=== PATIENT | female | born 1980 | race Caucasian/White ===

== ENCOUNTER 2020-01-09 19:41 | Emergency (ER) | payer OTHER, SELFPAY ==
[2020-01-09 19:51] VITALS: BP 124/79; PULSE 77; RESP 16; TEMP 36.4; O2SAT 100
--- NOTE | 2020-01-09 21:15 | ED.GENADULT ---
HPI - General Adult General Chief complaint: Unspecified Stated complaint: chest and throat numbness Time Seen by Provider: 01/09/20 21:14 Source: patient Mode of arrival: ambulatory Limitations: no limitations History of Present Illness HPI narrative: The pt is a 39 y/o female who presents to the ED c/o intermittent numbness onset today. Pt states that she was eating when she began to notice a tingling sensation in her throat. She then began to experience numbness in her mouth, tongue, and lips. 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 She notes nothing has improved or worsened her condition. 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 Pt reports SOB, but denies CP and back pain. Pt has no pertinent PMHx. Pt states that she does not smoke cigarettes or use alcohol. complaint: Numbness Location: mouth, upper extremity (BUE) and lower extremity (BLE) Pain Consistency: intermittent Relieving factors: none Exacerbating factors: none Associated symptoms: shortness of breath and other (Tingling in her throat, feeling stressed) Related Data Allergies Allergy/AdvReac Type Severity Reaction Status Date / Time No Known Drug Allergies Allergy Mild Unknown Verified 01/09/20 19:54 Review of Systems Review of Systems: All systems reviewed & are unremarkable except as noted in HPI and below Cardiovascular: Cardiovascular: Denies chest pain Respiratory: Respiratory: Reports dyspnea Musculoskeletal: Musculoskeletal: Denies back pain Neurologic: Reports numbness (Intermittent; Mouth, tongue, lips, BUE, BLE) and Reports tingling (Throat) Psychiatric: Psychiatric: Reports other (Feeling stressed) PMFSH Past Medical History Medical History (Updated 01/09/20 @ 21:47 by Leo Tirado MD) No pertinent past medical history Surgical History Surgical History (Updated 01/09/20 @ 21:25 by Gian Martinez) H/O left knee surgery Social History Social History (Updated 01/09/20 @ 21:25 by Gian Martinez) Smoking status: Never smoker Alcohol intake: never Gender identity (if verbalized by the patient): Female Exam Narrative: Exam Narrative: General appearance: Well-developed, well-nourished, no family member or friend at the bedside Skin: Normal color Head: Normocephalic, nontraumatic Eyes: Clear conjunctiva ENT: Oropharynx normal, ears normal, nose normal Neck: Supple, nontender Chest and respiratory: Airway patent, no respiratory distress, no accessory muscle use Heart: Regular rate/rhythm Abdomen: Soft, nontender, no organomegaly, quiet bowel sounds Vascular: Normal peripheral pulses, normal capillary refill. Musculoskeletal: Normal range of motion, nontender back Neurologic: Alert and oriented ?3, DAY CARE HOME PROVIDER is normal as tested, no gross motor deficit Course Course Emergency Course: Improved Vital Signs Vital signs: Vital Signs Temperature 36.4 C L 01/09/20 19:51 Pulse Rate 77 01/09/20 19:51 Respiratory Rate 16 01/09/20 19:51 Blood Pressure 124/79 01/09/20 19:51 Pulse Oximetry 100 01/09/20 19:51 Temperature 36.4 C L 01/09/20 19:51 Pulse Rate 77 01/09/20 19:51 Respiratory Rate 16 01/09/20 19:51 Blood Pressure 124/79 01/09/20 19:51 Pulse Oximetry 100 01/09/20 19:51 Medical Decision Making [facility] Narrative Medical decision making narrative: Patient is 39 years old female with unremarkable past medical history, single mother, a lot of stress, presents with paresthesia involving the tongue, lips, hands and feet, intermittent. My differential diagnosis anxiety
[2020-01-09 21:22] VITALS: BP 134/76; PULSE 71; RESP 16; O2SAT 98
[2020-01-09] MEDS: LORAZEPAM 0.5 MG TABLET 1 MG PO (21:57)
[2020-01-09 22:10] VITALS: BP 125/78; PULSE 84; RESP 18; O2SAT 100
== END 2020-01-09 22:13 | disposition home or self-care (01) ==
PROVIDERS: Emergency Provider Emergency Medicine
DX: F41.9 Anxiety disorder, unspecified (principal)
CPT/HCPCS: 99283; A9270

== ENCOUNTER 2020-06-19 07:55 | Outpatient (CLI) | payer OTHER, SELFPAY ==
--- NOTE | ~2020-06-19 | MM_ITS ---
EXAMINATION: MM screening hipolito BI w krissy HISTORY: Screening mammogram TECHNIQUE: Craniocaudal and mediolateral oblique 3-D tomosynthesis images were obtained and synthetic 2-D images were generated. CAD analysis was submitted and interpreted. COMPARISON: 04/08/2019 bilateral digital screening mammogram BREAST PARENCHYMAL COMPOSITION: There are scattered areas of fibroglandular density. FINDINGS: There is no evidence of suspicious mass, calcification, or architectural distortion to sugg est malignancy in either breast. There has been no suspicious interval change. IMPRESSION: 1. No mammographic evidence of malignancy. 2. Recommend routine screening mammography in one year. BI-RADS Category 1: Negative Reviewed, dictated and finalized at location A.
== END 2020-06-19 07:56 | disposition home or self-care (01) ==
LOC: ANHIMG 07:56
PROVIDERS: PCP Internal Medicine Infectious Disease; Visit Provider Internal Medicine Infectious Disease
DX: Z12.31 Encounter for screening mammogram for malignant neoplasm of breast (principal)
CPT/HCPCS: 77063; 77067

== ENCOUNTER 2021-05-11 00:03 | Emergency (ER) | payer OTHER, SELFPAY ==
[2021-05-11] VITALS (7 sets, daily range): BP systolic 124–145; BP diastolic 52–85; PULSE 68–77; RESP 14–18; TEMP 36; O2SAT 97–99
--- NOTE | ~2021-05-11 | CT_ITS ---
EXAMINATION: CT brain wo con INDICATION: Near syncope, dizziness COMPARISON: 07/21/2016 TECHNIQUE: Standard unenhanced head CT. The dose-length product (DLP) was 681.00 mGy-cm. The mA was a djusted according to patient size. Iterative reconstruction technique was employed. FINDINGS: There is no intracranial hemorrhage, acute infarction, or abnormal mass lesion. The ventric les are normal. There is no abnormal mass effect or midline shift. The martinez-white matter differentiat ion is normal. The basal cisterns are patent. The orbits are normal. The paranasal sinuses, mastoids and calvarium are normal. IMPRESSION: 1. No acute intracranial abnormality. Reviewed, dictated and finalized at location A.
--- NOTE | 2021-05-11 00:50 | ED.GENADULT ---
HPI - General Adult General Chief complaint: Unspecified Stated complaint: near syncopal Time Seen by Provider: 05/11/21 00:49 Source: patient Mode of arrival: ambulatory Limitations: no limitations History of Present Illness HPI narrative: Patient is a 41-year-old female complaining of dizziness, described as room spinning, worse with head movement and standing and walking, relieved with laying still, started proxy 1 week ago. Patient states that she was seen 3 days ago at [place] for the same complaint. Patient denies any speech or visual disturbance, focal weakness or numbness, unsteady gait, headache, chest pain, shortness of breath, nausea, vomiting, fever or chills. Related Data Allergies Allergy/AdvReac Type Severity Reaction Status Date / Time No Known Drug Allergies Allergy Mild Unknown Verified 05/11/21 00:13 Review of Systems Review of Systems: All systems reviewed & are unremarkable except as noted in HPI and below Constitutional: Constitutional: Denies body ache(s), Denies chills, Denies excessive sweating, Denies fatigue, Denies fever(s), Denies headache(s), Denies lethargy, Denies malaise, Denies weakness and Denies weight loss Eyes: Eyes: Denies blurry vision, Denies change in vision and Denies loss of vision ENT: Denies ear discharge, Denies headache(s), Denies lip swelling, Denies epistaxis, Denies nasal congestion, Denies neck pain, Denies throat swelling and Denies tongue swelling Cardiovascular: Cardiovascular: Denies chest pain, Denies chest pain at rest, Denies chest pain with activity, Denies diaphoresis, Denies rapid heart rate, Denies edema, Denies irregular heart rhythm, Denies lightheadedness, Denies palpitations, Denies dyspnea and Denies dyspnea on exertion Respiratory: Respiratory: Denies chest congestion, Denies cough, Denies hemoptysis, Denies dyspnea and Denies dyspnea on exertion Gastrointestinal: Gastrointestinal: Denies abdominal pain, Denies melena, Denies hematochezia, Denies diarrhea, Denies nausea, Denies vomiting and Denies hematemesis Musculoskeletal: Musculoskeletal: Denies abnormal gait, Denies deformity, Denies joint swelling, Denies limited range of motion, Denies neck pain and Denies numbness Neurologic: Denies Abnormal speech present, Denies abnormal gait, Denies confusion, Denies headache(s), Denies focal weakness, Denies loss of vision, Denies numbness, Denies Other visual disturbances, Denies Sensory deficit (Neuro) and Denies weakness Psychiatric: Psychiatric: Denies confusion, Denies depression, Denies auditory hallucinations, Denies homicidal ideation and Denies suicidal ideation Endocrine: Endocrine: Denies cold intolerance, Denies excessive sweating, Denies fatigue, Denies heat intolerance and Denies palpitations Hematologic/Lymphatic: Hematologic/Lymphatic: Denies easy bleeding and Denies easy bruising Allergic/Immunologic: Allergic/Immunologic: Denies lip swelling, Denies throat swelling and Denies tongue swelling PMFSH Past Medical History Medical History (Updated 05/11/21 @ 02:46 by Leighton Liu MD) No pertinent past medical history Surgical History Surgical History (Updated 01/09/20 @ 21:25 by Gian Martinez) H/O left knee surgery Social History Social History (Updated 01/09/20 @ 21:25 by Gian Martinez) Smoking status: Never smoker Alcohol intake: never Gender identity (if verbalized by the patient): Female Comments Past medical history: A. fib, resolved not on any medications. Family history: Negative for aneurysm, CVA or HI Social history: Non-smoker no EtOH or drug use Exam Const: General: cooperative, healthy appearing, comfortable, no acute distress, well developed, alert and awake; No confusion Orientation/consciousness: oriented to person, oriented to place, oriented to time, patient oriented x3 and No confusion Limitations: no limitations HENMT: Head: normal to inspection, normocephalic and atraumatic Ears: hearing grossl
--- NOTE | 2021-05-11 00:51 | ECG_ITS ---
Measurements Intervals [place] Rate: 69 P: 39 ND: 157 QRS: 29 QRSD: 106 T: 23 QT: 392 QTc: 422 Interpretive Statements SINUS RHYTHM ST ELEVATION IN DIFFUSE LEADS- PROBABLY EARLY REPOLARIZATION ABNORMALITY BASELINE ARTIFACT- I, II, AVR, V1, V3-V6 BORDERLINE ECG Electronically Signed On 05-11-2021 6:28:23 CDT by Shawn Morrison D.O.
[2021-05-11 01:51] LABS: Basophils Percent Auto 0.4 % (0.2-1.2); Eosinophils Absolute Auto 0.1 K/mm3 (0-0.3); Hematocrit 34.3 % (37.0-47.0); Hemoglobin 10.5 g/dL (12.0-15.0); Immature Granulocyte Absolute 0.03 K/mm3 (0.00-0.031); Immature Granulocyte Percent A 0.4 % (0-0.5); Lymphocytes Absolute Auto 1.93 K/mm3 (0.9-3.2); Lymphocytes Percent Auto 27.5 % (18.3-44.2); Mean Corpuscular HGB Conc 30.6 g/dl (32-36); Mean Corpuscular Hemoglobin 26.3 pg (26-34); Mean Corpuscular Volume 85.8 fl (80-100); Mean Platelet Volume 12.2 fl (7.4-10.4); Monocytes Absolute Auto 0.5 K/mm3 (0.1-0.6); Monocytes Percent Auto 7.5 % (2.6-8.5); Neutrophils Absolute Auto 4.4 K/mm3 (1.3-6.7); Neutrophils Percent Auto 62.2 % (45.5-73.1); Platelet Count Result 174 k/mm3 (150-375); Red Cell Distribution Width 14.9 % (11.5-14.5)
[2021-05-11 02:00] LABS: Anion Gap 9 mmol/L (8-16); Blood Urea Nitrogen 22 mg/dL (7-17); Calcium 9.2 mg/dL (8.4-10.2); Carbon Dioxide 24 mmol/L (22-30); Chloride 106 mmol/L (98-107); Estimated CRCL calculation 136 ml/min; Estimated Glomerular Filt Rate > 60; Glucose 109 mg/dL (65-105); Potassium 4.1 mmol/L (3.4-5.0); Sodium 139 mmol/L (137-145)
[2021-05-11 02:12] LABS: Troponin I < 0.012 ng/mL (0.000-0.034)
== END 2021-05-11 03:15 | disposition home or self-care (01) ==
PROVIDERS: Emergency Provider Emergency Medicine; PCP Internal Medicine Infectious Disease
DX: R42 Dizziness and giddiness (principal); R94.31 Abnormal electrocardiogram [ECG] [EKG]
CPT/HCPCS: 36415; 70450; 80048; 84484; 85025; 93005; 99284

== ENCOUNTER 2021-06-22 17:26 | Emergency (ER) | payer OTHER, SELFPAY ==
[2021-06-22 17:36] VITALS: BP 109/79; PULSE 74; RESP 16; TEMP 37.2; O2SAT 99
--- NOTE | 2021-06-22 17:40 | ED.EXTPRO ---
HPI - Extremity Problem General Chief complaint: Extremity Problem,Nontraumatic Stated complaint: Right Knee Pain History of Present Illness HPI Narrative: This is a 41-year-old female comes in complaining of right knee pain patient states that she is always has some pain she knows she has arthritis but last night and the last couple nights have been excruciating her leg has continued to swell at the top of her knee. Patient states she has been taking Tylenol arthritis, and some ibuprofen frequently Related Data Home Medications Medication Instructions Recorded Confirmed metoprolol succinate PO 06/22/21 06/22/21 Allergies Allergy/AdvReac Type Severity Reaction Status Date / Time No Known Drug Allergies Allergy Mild Unknown Verified 06/22/21 18:08 Review of Systems Review of Systems: CONSTITUTIONAL: Denies fever, chills, or sweats. EYES: Denies visual changes, redness, or discharge. ENT: Denies rhinorrhea, congestion, sore throat, or otalgia. CARDIOVASCULAR:Denies chest pain, palpitations, or edema. RESPIRATORY: Denies cough or dyspnea. GASTROINTESTINAL: Denies abdominal pain, nausea, vomiting, or diarrhea. GENITOURINARY: Denies dysuria or hematuria. SKIN:[Denies rash or itching. MUSCULOSKELETAL:Denies back pain, joint pain, or myalgia. NEUROLOGIC: Denies headache, numbness, or weakness. PSYCHIATRIC:Denies anxiety or depression PMFSH Past Medical History Medical History (Updated 06/23/21 @ 09:53 by Argenis Johnson NP) No pertinent past medical history Surgical History Surgical History (Updated 01/09/20 @ 21:25 by Gian Martinez) H/O left knee surgery Social History Social History (Updated 01/09/20 @ 21:25 by Gian Martinez) Smoking status: Never smoker Alcohol intake: never Gender identity (if verbalized by the patient): Female Comments At time as signature, I have reviewed and agree with nursing past medical, social, surgical and family history. Please see nursing chart for further information. There is no relevant family history pertinent to the presenting complaint. Exam Narrative: GENERAL:Well-appearing, well-nourished, and in no acute distress. HEAD:Normocephalic, atraumatic. EYES: PERRLA and EOMI. ENT: Nares clear, no rhinorrhea or epistaxis. Mucous membranes moist. NECK: Supple. CHEST: Clear to auscultation. No respiratory distress. HEART: Regular rate and rhythm. No murmur heard. Normal peripheral pulses. ABDOMEN: Soft, nontender, nondistended, normal active bowel sounds. EXTREMITIES: decreased right knee range of motion. Moderate amount edema above the knee fluid like felt which is painful no warmth noted painful with movement not palpitation . SKIN: Warm, dry, no rash. NEURO: No focal deficits. Alert and oriented x3. Course TRAFFIC DIRECTOR/PA Physician Supervision Discussed knee effusion and possible need for aspiration although it is not something we will do at this center and she may need to see a orthopedic doctor discussed the importance of weight loss will help as well. Vital Signs Vital signs: Vital Signs Temperature 98.9 F 06/22/21 17:36 Pulse Rate 74 06/22/21 17:36 Respiratory Rate 16 06/22/21 17:36 Blood Pressure 109/79 06/22/21 17:36 Pulse Oximetry 99 06/22/21 17:36 Temperature 98.9 F 06/22/21 17:36 Pulse Rate 74 06/22/21 17:36 Respiratory Rate 16 06/22/21 17:36 Blood Pressure 109/79 06/22/21 17:36 Pulse Oximetry 99 06/22/21 17:36 Discharge Plan Discharge Clinical Impression: Effusion of knee joint right, Acute knee pain Patient Disposition: Home, Self-Care Condition: Stable Instructions: Antibiotic Form, Swollen Knee Joint (ED) Additional Instructions: avoid weight bearing until the pain subsides. Ice to the area 20-30 minutes 4-6 times a day Elevate above heart Elastic wrap or orthopedic splint as directed for comfort for the next 5-7 days Tylenol for lesser pain Ibuprofen regularly for the next 2-3 days
== END 2021-06-22 18:22 | disposition home or self-care (01) ==
PROVIDERS: Emergency Provider Nurse Practitioner Family; PCP Internal Medicine Infectious Disease
DX: M25.461 Effusion, right knee (principal)
CPT/HCPCS: 99213; G0463

== ENCOUNTER 2021-11-23 07:28 | Emergency (ER) | payer OTHER, SELFPAY ==
[2021-11-23 08:05] VITALS: BP 126/73; PULSE 97; RESP 19; TEMP 36.9; O2SAT 100
== END 2021-11-23 09:50 | disposition left against medical advice (07) ==
LOC: ANHED 07:51
PROVIDERS: PCP Internal Medicine Infectious Disease
DX: Z53.21 Procedure and treatment not carried out due to patient leaving prior to being seen by health care provider (principal)
CPT/HCPCS: 99199

== ENCOUNTER 2022-02-22 23:01 | Emergency (ER) | payer OTHER, SELFPAY ==
--- NOTE | ~2022-02-22 | XR_ITS ---
EXAMINATION: XR chest 2V DATE: 02/23/2022 00:27 INDICATION: Cough. TECHNIQUE: Frontal and lateral views of the chest were obtained. COMPARISON: Chest single view 02/04/2013 FINDINGS: The chest demonstrates clear lungs without pneumonia, pleural effusion, or pneumothorax. Th e heart size is normal. IMPRESSION: 1. No acute cardiopulmonary disease. Reviewed, dictated and finalized at location A.
[2022-02-22 23:05] VITALS: BP 122/87; PULSE 76; RESP 14; TEMP 36.6; O2SAT 100
--- NOTE | 2022-02-23 00:16 | ED.URI ---
HPI - URI/Sore Throat General Chief Complaint: Upper Respiratory Infection Stated Complaint: URI, SOB Time Seen by Provider: 02/22/22 23:31 History of Present Illness HPI Narrative: 42-year-old female presents emergency room complaints of cough, shortness of breath, sinus congestion for 3 weeks. Patient states her daughter has been experiencing similar symptoms. Patient denies fever, sneezing, headache. Patient denies chest pain, back pain Related Data Home Medications Medication Instructions Recorded Confirmed metoprolol succinate PO 06/22/21 06/22/21 Allergies Allergy/AdvReac Type Severity Reaction Status Date / Time No Known Drug Allergies Allergy Mild Unknown Verified 02/22/22 23:09 Review of Systems Review of Systems: CONSTITUTIONAL: Denies fever, chills, or sweats. EYES: Denies visual changes, redness, or discharge. ENT: Denies rhinorrhea, congestion, sore throat, or otalgia. CARDIOVASCULAR: Denies chest pain, palpitations, or edema. RESPIRATORY: Reports cough and dyspnea GASTROINTESTINAL: Denies abdominal pain, nausea, vomiting, or diarrhea. GENITOURINARY: Denies dysuria or hematuria. SKIN: Denies rash or itching. MUSCULOSKELETAL: Denies back pain, joint pain, or myalgia. NEUROLOGIC: Denies headache, numbness, dizziness, or weakness. PSYCHIATRIC: Denies anxiety or depression. PMFSH Past Medical History Medical History No pertinent past medical history Surgical History Surgical History H/O left knee surgery Social History Social History Smoking status: Never smoker Alcohol intake: never Gender identity (if verbalized by the patient): Female Exam Narrative: GENERAL: Well-appearing, well-nourished, morbidly obese and in no acute distress. HEAD: Normocephalic, atraumatic. EYES: PERRLA and EOMI. CHEST: Clear to auscultation. No respiratory distress. No wheezes rales or rhonchi HEART: Regular rate and rhythm. No murmur heard. Normal peripheral pulses. EXTREMITIES: Normal range of motion. No edema. SKIN: Warm, dry, no rash. NEURO: No focal deficits. Alert and oriented x3. PSYCH: Normal mood and affect. Course Vital Signs Vital signs: Vital Signs Temperature 36.6 C 02/22/22 23:05 Pulse Rate 76 02/22/22 23:05 Respiratory Rate 14 02/22/22 23:05 Blood Pressure 122/87 02/22/22 23:05 Pulse Oximetry 100 02/22/22 23:05 Temperature 36.6 C 02/22/22 23:05 Pulse Rate 79 02/23/22 00:33 Respiratory Rate 18 02/23/22 00:33 Blood Pressure 145/84 H 02/23/22 00:33 Pulse Oximetry 99 02/23/22 00:33 MDM - URI/Sore Throat MDM Narrative Medical decision making narrative: 42-year-old female presents emergency room with complaints of sinus congestion, postnasal drip, cough, shortness of breath for 3 weeks. Chest x-ray showed no acute cardiopulmonary process. Patient was given a DuoNeb, and symptoms. Improved. Differential Diagnosis Differential diagnosis: Likely upper respiratory infection and viral infection Imaging Data My impression: No acute cardiopulmonary process Discharge Plan Discharge Clinical Impression: URI (upper respiratory infection) Patient Disposition: Home, Self-Care Condition: Stable Instructions: Antibiotic Form Additional Instructions: Take medications as prescribed. Recommend taking 30 mg of pseudoephedrine 2-3 times daily for sinus congestion. Follow-up with primary care physician as needed. Prescriptions: New albuterol sulfate 90 mcg/actuation HFA aerosol inhaler 1 inh inhalation QID Qty: 8.5 RF: 0 prednisone 20 mg tablet 30 mg PO DAILY Qty: 15 RF: 0 No Action metoprolol succinate 25 mg tablet extended release 24 hr PO RF: 0 methylprednisolone [Medrol (Madhav)] 4 mg tablets,dose pack See Rx Instructions .ROUTE .COMPLEX Qty: 21 RF: 0
[2022-02-23 00:33] VITALS: BP 145/84; PULSE 79; RESP 18; O2SAT 99
[2022-02-23 00:46] VITALS: PULSE 78; RESP 12
[2022-02-23] MEDS: IPRATROPIUM BR 0.02% INH SOLN 0.5 MG/2.5 ML VIAL INHALATION (00:46)
[2022-02-23] MEDS: ALBUTEROL SULFATE NEB 2.5 MG/0.5 ML INH 5 MG INHALATION (00:46)
[2022-02-23 00:54] VITALS: PULSE 75; RESP 11
== END 2022-02-23 01:16 | disposition home or self-care (01) ==
PROVIDERS: Emergency Provider Nurse Practitioner Family; PCP Internal Medicine Infectious Disease
DX: J06.9 Acute upper respiratory infection, unspecified (principal)
CPT/HCPCS: 71046; 94640; 99283

== ENCOUNTER 2022-02-26 12:53 | Emergency (ER) | payer OTHER, SELFPAY ==
--- NOTE | ~2022-02-26 | XR_ITS ---
EXAMINATION: XR foot LT min 3V EXAM DATE: 02/26/2022 13:13 INDICATION: Left 2nd toe injury 2 weeks ago. TECHNIQUE: Left foot dorsoplantar, lateral and oblique projections obtained and reviewed. There is n o prior study for comparison. FINDINGS: Left metatarsal bones unremarkable. There is large inferior calcaneal spur. Some faint v ascular calcifications are demonstrated. There are no bony erosions identified. There are no acute fr actures identified. There may be some soft tissue swelling between the 2nd and 3rd toes, clinical cor relation. IMPRESSION: Possible soft tissue swelling. No fracture. Reviewed, dictated and finalized at location A.
[2022-02-26 13:01] VITALS: BP 109/75; PULSE 69; RESP 16; TEMP 36.7; O2SAT 99
--- NOTE | 2022-02-26 13:02 | ED.LOWEXIN ---
HPI - Extremity Injury (Lower) General Chief Complaint: Extremity Injury, Lower Stated Complaint: left 1st/2nd digit toe pain Time Seen by Provider: 02/26/22 13:17 Source: patient and RN notes reviewed Mode of arrival: ambulatory Limitations: no limitations History of Present Illness HPI Narrative: 42-year-old female presents concern for pain due the first and second digits of the left foot. Reports she injured about 2 weeks ago. She reports the second digit is crooked. She reports pain when she walks. She denies decree strength, sensation. She reports the digit is swollen but not bruised. complaint: foot injury Related Data Allergies Allergy/AdvReac Type Severity Reaction Status Date / Time No Known Drug Allergies Allergy Mild Unknown Verified 02/26/22 13:16 Review of Systems Review of Systems: CONSTITUTIONAL: Denies malaise, chills, sweats, or fever. SKIN: Denies rash or itching, open skin, laceration, abrasion, redness, warmth MUSCULOSKELETAL: Reports pain in the first and second digits of the left foot, swelling in the second digit of the left foot NEUROLOGIC: Denies numbness, weakness All systems reviewed & are unremarkable except as noted in HPI and below PMFSH Past Medical History Medical History No pertinent past medical history Surgical History Surgical History H/O left knee surgery Social History Social History Smoking status: Never smoker Alcohol intake: never Gender identity (if verbalized by the patient): Female Comments At time of signature, agree with nursing past medical, surgical, social and family history. There is no relevant family history pertinent to the presenting complaint Exam Narrative: GENERAL: Well-appearing, well-nourished, and in no acute distress. HEAD: Normocephalic, atraumatic. EYES: PERRLA, conjunctivae clear NECK: Supple. CHEST: Speaks in full sentences. No respiratory distress. HEART: Regular rate and rhythm. Normal and equal peripheral pulses. EXTREMITIES: Left foot and digits have normal strength and sensation, grossly normal range of motion. Mild edema noted to the second digit with slight deformity. 5/5 strength with digit flexion and extension. Normal sensation with sensitivity to light touch and pain. Mild tenderness to the second digit of the left foot. No open wounds, no skin tenting, no devitalized tissue or atrophy, no trophic changes, alignment normal, nearby joints and structures intact. Distal pulses palpable and equal bilaterally, skin warm, dry, pink. Capillary refill less than 3 seconds. SKIN: Warm, dry, no rash. NEURO: Alert and oriented x3. PSYCH: Normal mood and affect Course Course Emergency Course: Patient is aware of diagnosis, understands and agrees to treatment plan. Anticipatory guidance given. Patient agrees to follow-up as directed and is aware of reasons to seek care at the emergency department. Portions of this record may have been created with voice recognition software Level of Care: Express Care Visit Vital Signs Vital signs: Vital Signs Temperature 98.1 F 02/26/22 13:01 Pulse Rate 69 02/26/22 13:01 Respiratory Rate 16 02/26/22 13:01 Blood Pressure 109/75 02/26/22 13:01 Pulse Oximetry 99 02/26/22 13:01 Temperature 98.1 F 02/26/22 13:07 Pulse Rate 69 02/26/22 13:07 Respiratory Rate 16 02/26/22 13:07 Blood Pressure 109/75 02/26/22 13:07 Pulse Oximetry 99 02/26/22 13:07 Reviewed. MDM - Extremity Injury (Lower) MDM Narrative Medical decision making narrative: Patients injury and pain is consistent with musculoskeletal etiology. No signs of neurological or vascular compromise on exam. Compartments and tissues are soft without signs of compartment syndrome. Pain is felt appropriate for further evaluation on an outpatient basis. Imagi
[2022-02-26 13:07] VITALS: BP 109/75; PULSE 69; RESP 16; TEMP 36.7; O2SAT 99
== END 2022-02-26 13:45 | disposition home or self-care (01) ==
PROVIDERS: Emergency Provider Nurse Practitioner
DX: S99.922A Unspecified injury of left foot, initial encounter (principal); X58.XXXA Exposure to other specified factors, initial encounter; Z86.16 Personal history of COVID-19
CPT/HCPCS: 73630; 99213; G0463

== ENCOUNTER 2022-03-30 18:30 | Emergency (ER) | payer OTHER, SELFPAY ==
--- NOTE | ~2022-03-30 | XR_ITS ---
EXAM: XR knee RT min 4V HISTORY: RT KNEE PAIN X MONDAY,POPPED,CAN'T BEAR WEIGHT COMPARISON: None available FINDINGS: Normal mineralization. No fracture or dislocation. No lytic or blastic lesion. Severe tric ompartmental osteoarthritis.. No erosion or periosteal change. Soft tissues within normal limits. IMPRESSION: No acute osseous finding in the right knee. Reviewed, dictated and finalized at location K.
[2022-03-30 18:34] VITALS: BP 127/76; PULSE 81; RESP 16; TEMP 36.4; O2SAT 100
--- NOTE | 2022-03-30 20:34 | ED.GENADULT ---
HPI - General Adult General Chief complaint: Extremity Injury, Lower Stated complaint: R KNEE PAIN Time Seen by Provider: 03/30/22 19:56 Source: RN notes reviewed History of Present Illness HPI narrative: Patient presents emergency room from home for right knee pain. Patient states pain initially began 3 days ago when she was stepping up a step and felt pain in the right posterior knee with a pop states that time it was sore and she was able to place weight on it use a pair crutches and took it easy the next day states she is feeling better by yesterday this morning she went to go put on a pair pants and again felt a pop in the right posterior leg and has had pain since that time. States pain is worse with standing on the leg and bending the leg she denies falling to the ground or directly striking the knee she states she has not take anything for the pain she denies any pain in the hip or ankle denies any numbness or tingling Related Data Allergies Allergy/AdvReac Type Severity Reaction Status Date / Time No Known Drug Allergies Allergy Mild Unknown Verified 03/30/22 19:52 Review of Systems Review of Systems: Gen.: Denies fevers or chills Musculoskeletal: See HPI Neuro: Denies numbness, tingling, weakness Skin: Denies rash Endo: Denies DM PMFSH Past Medical History Medical History No pertinent past medical history Surgical History Surgical History H/O left knee surgery Social History Social History Smoking status: Never smoker Alcohol intake: never Gender identity (if verbalized by the patient): Female Exam Narrative: APPEARANCE: No acute distress, nontoxic, resting in bed Eyes: EOMI HEENT: Normocephalic, atraumatic, RESPIRATORY: No respiratory distress MUSCULOSKELETAl: Tender palpation of the right posterior knee and region of hamstring and slightly proximal in the region of the hamstring there is no tenderness of the anterior or lateral knee, mild tenderness in the medial knee no tenderness of the hip or ankle no calf tenderness posterior tibialis pulse 2+ neurovascular intact pain increased with active flexion of the knee against resistance NEURO: Awake and alert. Following commands, speech normal, no focal deficits SKIN:: Warm, dry. Normal Color no rash or lesions Course Course Emergency Course: Discussed with patient results of workup and diagnosis. Discussed need for follow-up with primary care, proper use of medication, and reasons to return to the emergency department. Patient understands and agrees to current treatment plan Vital Signs Vital signs: Vital Signs Temperature 97.6 F 03/30/22 18:34 Pulse Rate 81 03/30/22 18:34 Respiratory Rate 16 03/30/22 18:34 Blood Pressure 127/76 03/30/22 18:34 Pulse Oximetry 100 03/30/22 18:34 Temperature 97.6 F 03/30/22 18:34 Pulse Rate 81 03/30/22 18:34 Respiratory Rate 16 03/30/22 18:34 Blood Pressure 127/76 03/30/22 18:34 Pulse Oximetry 100 03/30/22 18:34 Medical Decision Making MDM Narrative Medical decision making narrative: Patient?s injury is consistent with muscular skeletal etiology. No signs of neurologic or vascular compromise to exam. Compartments are soft without signs of compartment syndrome. Pain is consistent with exam and injury. Pain over area of hamstring and suspect hamstring strain Vital Signs Vital Signs: Vital Signs Temperature 97.6 F 03/30/22 18:34 Pulse Rate 81 03/30/22 18:34 Respiratory Rate 16 03/30/22 18:34 Blood Pressure 127/76 03/30/22 18:34 Pulse Oximetry 100 03/30/22 18:34 Temperature 97.6 F 03/30/22 18:34 Pulse Rate 81 03/30/22 18:34 Respiratory Rate 16 03/30/22 18:34 Blood Pressure 127/76 03/30/22 18:34 Pulse Oximetry 100 03/30/22 18:34 Imaging Data Radiologist's impression: IT
[2022-03-30] MEDS: IBUPROFEN 600 MG TABLET PO (21:03)
== END 2022-03-30 21:05 | disposition home or self-care (01) ==
PROVIDERS: Emergency Provider Emergency Medicine
DX: S76.312A Strain of muscle, fascia and tendon of the posterior muscle group at thigh level, left thigh, initial encounter (principal); X50.9XXA Other and unspecified overexertion or strenuous movements or postures, initial encounter
CPT/HCPCS: 73564; 99283; A9270

== ENCOUNTER 2022-08-06 19:23 | Emergency (ER) | payer OTHER, SELFPAY ==
[2022-08-06] VITALS (16 sets, daily range): BP systolic 118–152; BP diastolic 60–91; PULSE 78–101; RESP 18; TEMP 36.7; O2SAT 97–100
--- NOTE | ~2022-08-06 | CT_ITS ---
EXAMINATION: CT brain wo con DATE: 08/06/2022 20:04 INDICATION: dizziness intermittent, nausea . TECHNIQUE: Computed tomography (CT) of the head was performed without intravenous contrast. The mA wa s adjusted according to patient size. Iterative reconstruction technique was employed. The dose-lengt h product was 605.33 mGy-cm. COMPARISON: 05/11/2021 FINDINGS: No acute intracranial hemorrhage or extra-axial fluid collection. No hydrocephalus, mass, or herniation. No acute ischemic infarct. Unremarkable dural venous sinus attenuation. No acute osseous abnormality. The aerated spaces are clear. Atherosclerotic intracranial calcification. IMPRESSION: No acute intracranial process. Reviewed, dictated and finalized at location K.
--- NOTE | ~2022-08-06 | XR_ITS ---
EXAMINATION: XR chest 1V portable Exam Date/Time: 08/06/2022 19:45 CDT HISTORY: dyspnea Comparison: 02/23/2022. RESULT: Lines, tubes, and devices: None. Lungs and pleura: Clear. Cardiomediastinal silhouette: Stable. Other: No acute osseous or upper abdominal finding. IMPRESSION: No acute cardiopulmonary process. Reviewed, dictated and finalized at location K.
--- NOTE | ~2022-08-06 | CT_ITS ---
EXAMINATION: CTA chest PE protocol DATE: 08/06/2022 22:42 INDICATION: Dyspnea. TECHNIQUE: Computed tomography angiography (CTA) of the chest was performed with 100 mL Omnipaque-350 intravenous contrast timed to evaluate the pulmonary arteries. Coronal maximum intensity projection 3D-reconstructions were created by the technologist. Automated exposure control and iterative reconst ruction technique were employed. The dose-length product was 961.16 mGy-cm. COMPARISON: CT abdomen and pelvis 07/12/2014 FINDINGS: There is mild scarring in paraspinal right lower lobe. No pneumonia or pleural effusion. Th e heart size is normal. No pericardial effusion. There is no pulmonary embolus. There is a moderate-s ized sliding hiatal hernia. There are gallstones in the gallbladder, which is normal in size. There i s mild thoracic spondylosis. IMPRESSION: 1. No pulmonary embolus. 2. Moderate-sized sliding hiatal hernia. 3. Cholelithiasis. Reviewed, dictated and finalized at location A.
--- NOTE | 2022-08-06 19:41 | ECG_ITS ---
Measurements Intervals [place] Rate: 81 P: -5 WI: 154 QRS: 11 QRSD: 94 T: 4 QT: 373 QTc: 433 Interpretive Statements SINUS RHYTHM NORMAL ECG COMPARED TO ECG 05/11/2021 01:28:40 NO SIGNIFICANT CHANGES Electronically Signed On 08-07-2022 6:25:46 CDT by Shawn Morrison D.O.
[2022-08-06 20:29] LABS: Basophils Percent Auto 0.5 % (0.2-1.2); Eosinophils Absolute Auto 0.2 K/mm3 (0-0.3); Eosinophils Percent Auto 1.9 % (0-4.4); Hemoglobin 11.1 g/dL (12.0-15.0); Immature Granulocyte Absolute 0.02 K/mm3 (0.00-0.031); Immature Granulocyte Percent A 0.2 % (0-0.5); Lymphocytes Absolute Auto 2.39 K/mm3 (0.9-3.2); Lymphocytes Percent Auto 29.8 % (18.3-44.2); Mean Corpuscular HGB Conc 30.8 g/dl (32-36); Mean Corpuscular Hemoglobin 26.4 pg (26-34); Mean Corpuscular Volume 85.7 fl (80-100); Mean Platelet Volume 12.2 fl (7.4-10.4); Monocytes Absolute Auto 0.6 K/mm3 (0.1-0.6); Monocytes Percent Auto 7.6 % (2.6-8.5); Neutrophils Absolute Auto 4.8 K/mm3 (1.3-6.7); Platelet Count Result 184 k/mm3 (150-375); Red Cell Distribution Width 14.8 % (11.5-14.5)
--- NOTE | 2022-08-06 20:29 | ED.GENADULT ---
HPI - General Adult General Chief complaint: Unspecified Stated complaint: Dizziness, leg pain/swelling, SOB Time Seen by Provider: 08/06/22 19:35 History of Present Illness HPI narrative: Patient presents emergency department from home for right leg pain and dizziness. Patient states that for the past 5 days she has had swelling in her right lower leg she states she has noted some swelling and pain in her calf states she did recently drive to [place] and back she states that the swelling began following that. She states that 2 days ago she began to have episodes of dizziness she states the episodes of dizziness are intermittent and feels like the room is spinning she states she does become nauseous with that she also has noted some intermittent shortness of breath she denies any fevers or chills chest pain abdominal pain or vomiting. She states that she has had no known trauma or injury to the leg she denies any other symptoms at this time denies any history of blood clots Related Data Allergies Allergy/AdvReac Type Severity Reaction Status Date / Time No Known Drug Allergies Allergy Mild Unknown Verified 03/30/22 19:52 Review of Systems Review of Systems: Gen.: Denies fevers or chills Eyes: Denies eye pain or visual change ENT: Denies congestion Respiratory: Reports shortness of breath CV: Denies chest pain or palpitations GI: Denies abdominal pain nausea, emesis or diarrhea Musculoskeletal: Reports right calf pain Neuro: Reports dizziness Skin: Denies rash Except as documented, all other systems reviewed and negative ON LICENSE OF [facility] Past Medical History Medical History No pertinent past medical history Right calf pain Surgical History Surgical History H/O left knee surgery Social History Social History Smoking status: Never smoker Alcohol intake: never Gender identity (if verbalized by the patient): Female Exam Narrative: APPEARANCE: No acute distress, nontoxic, resting in bed EYES: EOMI, PERRL HEENT: Normocephalic, atraumatic, TMs clear bilaterally nares patent RESPIRATORY: No respiratory distress Clear to auscultation bilaterally with no rhonchi wheezing or rales. CARDIOVASCULAR: Regular rate and rhythm without murmurs rubs or gallops. ABDOMINAL: Soft, nontender, nondistended, no rebound or guarding MUSCULOSKELETAl: Moves all extremities. No clubbing, cyanosis 2+ edema to bilateral lower extremities the right calf is tender to palpation bilateral dorsalis pedis pulse 2+ NEURO: Awake and alert x 4, following commands speech normal strength 5 out of 5 in the bilateral upper and lower extremities SKIN:: Warm, dry. No rashes lesions or abrasions PSYCHIATRIC: Normal affect/mood, Course Course Emergency Course: Patient with an episode of acute dizziness when she had to lay back for her CAT scan that resolved on its own believe the patient be suffering from positional vertigo Patient with negative CTA chest currently no ultrasound available as it is a Monday evening patient given dose of Xarelto and is set up for a 7 AM ultrasound of right lower extremity Discussed with Dr. Champagne fire prevention chief for Dr Marie agrees with plan for ultrasound in a.m. Discussed with patient results of workup and diagnosis. Discussed need for follow-up with primary care, proper use of medication, and reasons to return to the emergency department. Patient understands and agrees to current treatment plan Vital Signs Vital signs: Vital Signs Temperature 98.0 F 08/06/22 19:33 Pulse Rate 78 08/06/22 19:33 Respiratory Rate 18 08/06/22 19:33 Blood Pressure 148/80 H 08/06/22 19:33 Pulse Oximetry 99 08/06/22 19:33 Oxygen Delivery Room Air 08/06/22 19:33 Temperature 98.0 F 08/06/22 19:33 Pulse Rate 79 08/07/22 00:49 Respiratory Rate 18 08/07/22 00:49 Bl
[2022-08-06 20:39] LABS: Alanine Aminotransferase 19 U/L (6-35); Albumin Level 3.8 g/dL (3.5-5.1); Alkaline Phosphatase 87 U/L (38-126); Anion Gap 7 mmol/L (8-16); Aspartate Amino Transferase 17 U/L (14-36); Bilirubin,Total 0.2 mg/dL (0.2-1.3); Blood Urea Nitrogen 16 mg/dL (7-17); Calcium 9.1 mg/dL (8.4-10.2); Carbon Dioxide 24 mmol/L (22-30); Chloride 105 mmol/L (98-107); Estimated CRCL calculation 131 ml/min; Estimated Glomerular Filt Rate > 60; Glucose 109 mg/dL (65-110); Potassium 4.1 mmol/L (3.4-5.0); Sodium 136 mmol/L (137-145)
[2022-08-06 20:43] LABS: Partial Thromboplastin Time 30.5 SECONDS (22.3-36.8)
[2022-08-06 20:51] LABS: NT Pro B Type Natriuretic Pept 111 pg/mL (5-100); Troponin I < 0.012 ng/mL (0.000-0.034)
[2022-08-06 21:02] LABS: D Dimer 0.53 ug/mL (<0.48)
[2022-08-06 21:12] LABS: Appearance Urine Clear (Clear); Bilirubin Urine Negative (Negative); Blood Urine Negative (Negative); Color Urine Yellow (Yellow); Glucose Urine UA Negative (Negative); Ketones Urine Negative (Negative); Leukocyte Esterase Ur 1+ LEU/UL (Negative); Nitrate Urine Negative (Negative); Protein Urine Negative (Negative); Urobilinogen Urine 0.2 mg/dL (<2.0); pH Urine 7.5 (5.0-9.0)
[2022-08-06 21:44] LABS: Bacteria Urine Trace /hpf; Mucus Urine Rare /lpf; Squamous Epithelial Cell Urine Few /hpf (Few); WBC Urine 0-3 /hpf
[2022-08-06 21:47] LABS: Add Urine Microscopic? YES
[2022-08-07] MEDS: RIVAROXABAN 15 MG TABLET PO (00:43)
[2022-08-07 00:49] VITALS: BP 117/76; PULSE 79; RESP 18; O2SAT 99
== END 2022-08-07 00:51 | disposition home or self-care (01) ==
PROVIDERS: Emergency Provider Emergency Medicine
DX: M79.661 Pain in right lower leg (principal); R42 Dizziness and giddiness
CPT/HCPCS: 36415; 70450; 71045; 71275; 80053; 81001; 83880; 84484; 85025; 85380; 85610; 85730; 93005; 99284; A9270; Q9967

== ENCOUNTER 2022-08-07 07:32 | Outpatient (CLI) | payer OTHER, SELFPAY ==
--- NOTE | ~2022-08-07 | US_ITS ---
EXAMINATION: US venous doppler LE RT DATE: 08/07/2022 08:06 INDICATION: Right lower limb pain. TECHNIQUE: Grayscale ultrasound images without and with compression and Doppler ultrasound images of the right lower extremity veins were obtained. COMPARISON: None. FINDINGS: The visualized portions of right common femoral vein, profunda (deep) femoral vein, femoral vein, pop liteal vein, peroneal veins, and posterior tibial veins are patent. IMPRESSION: 1. No deep venous thrombosis. Reviewed, dictated and finalized at location A.
== END 2022-08-07 07:33 | disposition home or self-care (01) ==
LOC: ANHIMG 07:38
PROVIDERS: PCP Internal Medicine Infectious Disease; Visit Provider Emergency Medicine
DX: M79.661 Pain in right lower leg (principal)
CPT/HCPCS: 93971

== ENCOUNTER 2022-11-08 17:41 | Outpatient (CLI) | payer OTHER, SELFPAY ==
--- NOTE | ~2022-11-08 | US_ITS ---
Thyroid ultrasound. Clinical History: Neck swelling Findings: Real-time sonography of the thyroid gland was performed. The right lobe measures 4.6 x 1.7 x 1.9 cm. The left lobe measures 4.3 x 1.2 x 1.5 cm. The isthmus is 4 mm in AP diameter. There are p robable tiny cystic nodules bilaterally. There is a minimally prominent left cervical lymph node, however this is not frankly enlarged by size criteria, and maintains a fatty hilum. Impression: No significant abnormality of the thyroid gland. Minimally prominent left cervical lymph node is probably within normal limits.. Reviewed, dictated and finalized at location . 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 Minimally prominent left cervical lymph node is probably within normal limits..
== END 2022-11-08 17:42 | disposition home or self-care (01) ==
LOC: ANHIMG 17:42
PROVIDERS: PCP Internal Medicine Infectious Disease; Visit Provider Internal Medicine Infectious Disease
DX: R22.1 Localized swelling, mass and lump, neck (principal)
CPT/HCPCS: 76536

== ENCOUNTER 2023-09-01 17:21 | Emergency (ER) | payer OTHER, SELFPAY ==
--- NOTE | ~2023-09-01 | XR_ITS ---
[id number] 09/01/2023 17:54 Indication: Left knee pain. No acute injury. History of knee surgery. Procedure: 3 views left knee Comparison: No prior studies for comparison. Findings: There is severe tricompartment osteoarthritis, most advanced in the patellofemoral compartm ent. There is chronic fracture deformity of the patella. There are 2 transversely oriented screws inv olving the proximal tibia. No acute fracture is identified. Impression: 1: No acute bone or joint abnormality. Reviewed, dictated and finalized at location A. Impression: 1: No acute bone or joint abnormality.
--- NOTE | 2023-09-01 17:29 | ED.LOWEXIN ---
HPI - Extremity Injury (Lower) General Chief Complaint: Extremity Problem,Nontraumatic Stated Complaint: Left Knee Pain Time Seen by Provider: 09/01/23 17:30 Source: patient, RN notes reviewed and old records reviewed Mode of arrival: ambulatory Limitations: no limitations History of Present Illness HPI Narrative: 43-year-old female presents to the [facility] with left knee pain, swelling. States it has been going on a couple of days. States that she has been walking more than normal. Has a history of screws placed in her knee approximately 30 years ago. Knows that she has osteoarthritis. History of osteoarthritis and morbid obesity Onset (ago): day(s) Related Data Allergies Allergy/AdvReac Type Severity Reaction Status Date / Time No Known Drug Allergies Allergy Mild Unknown Verified 09/01/23 17:24 Review of Systems Review of Systems: All systems reviewed & are unremarkable except as noted in HPI and below Constitutional: Constitutional: Reports no additional constitutional complaints Eyes: Eyes: Reports no additional eye complaints ENT: Reports system reviewed and no additional complaints, except as documented Cardiovascular: Cardiovascular: Reports no additional cardiovascular complaints, Denies chest pain and Denies dyspnea Respiratory: Respiratory: Reports no additional respiratory complaints, Denies chest congestion, Denies cough and Denies dyspnea Gastrointestinal: Gastrointestinal: Reports no additional gastrointestinal complaints, Denies abdominal pain, Denies nausea and Denies vomiting Musculoskeletal: Musculoskeletal: Reports as per HPI, Reports arthralgias and Reports joint swelling Integumentary/Breasts: Skin/Breast: Reports system reviewed and no additional complaints, except as docu Neurologic: Reports system reviewed and no additional complaints, except as documented Psychiatric: Psychiatric: Reports no additional psychiatric complaints Allergic/Immunologic: Allergic/Immunologic: Reports no additional allergic/immunologic complaints [facility] Past Medical History Medical History No pertinent past medical history Right calf pain Surgical History Surgical History H/O left knee surgery Social History Social History Smoking status: Never smoker Alcohol intake: never Gender identity (if verbalized by the patient): Female Comments At the time of my signature, I reviewed and agree with the nursing past medical, surgical, social, and family history. There is no relevant family history pertinent to the patient complaint. Exam Const: General: cooperative, healthy appearing, comfortable, no acute distress, well developed, alert and well nourished Nutritional Appearance: well nourished and obese morbidly obese Orientation/consciousness: patient oriented x3 Limitations: no limitations HENMT: Head: normal to inspection Ears: hearing grossly normal bilaterally and external ears normal Face/Nose/Sinus: Normal external nose present, Normal nares present, Normal nasal mucous membranes and turbinates present, normal facial exam and face symmetric Face and sinus: normal facial exam and face symmetric Eyes: General: appearance normal, both eyes and all related structures Alignment and Position: alignment normal Periorbital: periorbital findings normal Pupils: Equal, round and reactive pupils present EOM: EOMs intact bilaterally Neck: Neck: normal visual inspection, full ROM, no lymphadenopathy and no meningeal signs Chest: Chest palpation & inspection: normal inspection of the chest Resp: Effort & Inspection: normal respiratory effort and able to speak in complete sentences Cardio: Rate: regular rate Rhythm: regular rhythm Back/Spine/Pelvis: Cervical Spine: cervical ROM normal Skin: General skin exam: normal color and no rashes or
[2023-09-01 17:30] VITALS: BP 134/84; PULSE 88; RESP 18; TEMP 36.6; O2SAT 100
== END 2023-09-01 18:10 | disposition home or self-care (01) ==
PROVIDERS: Emergency Provider Nurse Practitioner; PCP Internal Medicine Infectious Disease
DX: M17.12 Unilateral primary osteoarthritis, left knee (principal)
CPT/HCPCS: 73560; 99213; G0463

== ENCOUNTER 2023-11-03 13:22 | Emergency (ER) | payer SELFPAY ==
--- NOTE | 2023-11-03 13:32 | ED.URI ---
HPI - URI/Sore Throat General Chief Complaint: Upper Respiratory Infection Stated Complaint: cough, wheezing Time Seen by Provider: 11/03/23 13:48 Source: patient and RN notes reviewed Mode of arrival: ambulatory Limitations: no limitations History of Present Illness HPI Narrative: 43-year-old female presents with concern for 6 weeks history of cough, wheezing, chest congestion. Reports symptoms are worse at night. Reports she has been taking NyQuil with little relief. MD elicited complaint: cough Related Data Allergies Allergy/AdvReac Type Severity Reaction Status Date / Time No Known Drug Allergies Allergy Mild Unknown Verified 09/01/23 17:24 Review of Systems Review of Systems: CONSTITUTIONAL: Denies malaise, chills, sweats, or fever. EYES: Denies visual changes, redness, or discharge. ENT: Denies rhinorrhea, congestion, sinus pain, otalgia and sore throat. CARDIOVASCULAR: Denies chest pain, palpitations, or edema. RESPIRATORY: Reports cough, wheezing. Denies dyspnea. GASTROINTESTINAL: Denies abdominal pain, nausea, vomiting, diarrhea SKIN: Denies rash or itching. MUSCULOSKELETAL: Denies myalgia. NEUROLOGIC: Denies headache. All systems reviewed & are unremarkable except as noted in HPI and below PMFSH Past Medical History Medical History No pertinent past medical history Right calf pain Surgical History Surgical History H/O left knee surgery Social History Social History Smoking status: Never smoker Alcohol intake: never Gender identity (if verbalized by the patient): Female Comments At time of signature, agree with nursing past medical, surgical, social and family history. There is no relevant family history pertinent to the presenting complaint Exam Narrative: GENERAL: Well-appearing, well-nourished, and in no acute distress. HEAD: Normocephalic EYES: PERRLA, conjunctivae clear ENT: Nares clear. Mucous membranes moist. TM pearly martinez with dull light reflex bilaterally; no tragal tenderness. Oropharynx not erythematous without lesions. Tonsils not enlarged and without exudate, no drooling, no hoarseness, no trismus, uvula midline. NECK: Supple. No lymphadenopathy CHEST: Clear to auscultation, breath sounds equal. No wheezing, rhonchi, rales, or stridor. No respiratory distress, speaks in full sentences. Cough noted HEART: Regular rate and rhythm. No murmur heard. SKIN: Warm, dry, no rash. NEURO: Alert and oriented x3. PSYCH: Normal mood and affect Course Course Emergency Course: Patient is aware of diagnosis, understands and agrees to treatment plan. Anticipatory guidance given. Patient agrees to follow-up as directed and is aware of reasons to seek care at the emergency department. Portions of this record may have been created with voice recognition software Level of Care: Express Care Visit Vital Signs Vital signs: Reviewed. MDM - URI/Sore Throat MDM Narrative Medical decision making narrative: Differential diagnosis considered: Lopez virus, strep pharyngitis, allergic rhinitis, upper respiratory tract infection, sinusitis, rhinosinusitis, nasopharyngitis. viral pharyngitis, otitis media, otitis externa, pneumonia, bronchitis, viral cough syndrome, viral syndrome, and influenza. Exam findings show no acute concerns or changes; patient is non-toxic appearing and is in no distress. Patient is appropriate for outpatient treatment and follow-up. Lab Data Attestation: I reviewed the patient's lab results. Critical Care Time Critical Care Time Critical Care Time: No Discharge Plan Discharge Clinical Impression: Bronchitis Patient Disposition: Home, Self-Care Condition: Stable Instructions: Antibiotic Form, Acute Bronchitis (ED) Additional Instructions: Take medication as directed Recommend antihistami
[2023-11-03 13:33] VITALS: BP 127/103; PULSE 75; RESP 16; TEMP 36.8; O2SAT 99
== END 2023-11-03 13:58 | disposition home or self-care (01) ==
PROVIDERS: Emergency Provider Nurse Practitioner; PCP Internal Medicine Infectious Disease
DX: J40 Bronchitis, not specified as acute or chronic (principal)
CPT/HCPCS: 99213; G0463

== ENCOUNTER 2024-05-10 08:01 | Emergency (ER) | payer SELFPAY ==
--- NOTE | ~2024-05-10 | XR_ITS ---
EXAMINATION: XR ankle LT min 3V DATE: 05/10/2024 08:30 INDICATION: Left ankle injury and pain. TECHNIQUE: 4 views of left ankle were obtained. COMPARISON: Left foot radiographs 02/26/2022 FINDINGS: Bone alignment is normal. No fracture. There is mild midfoot osteoarthritis. There is an en thesophyte at plantar aspect of calcaneal tuberosity. IMPRESSION: 1. No fracture. Reviewed, dictated and finalized at location A. IMPRESSION: 1. No fracture.
[2024-05-10 08:04] VITALS: BP 134/74; PULSE 78; RESP 16; TEMP 36.7; O2SAT 98
--- NOTE | 2024-05-10 09:11 | ED.LOWEXIN ---
HPI - Extremity Injury (Lower) General Chief Complaint: Extremity Injury, Lower Stated Complaint: L ankle/foot pain Time Seen by Provider: 05/10/24 08:06 Source: patient Mode of arrival: ambulatory Limitations: no limitations History of Present Illness HPI Narrative: 44-year-old here with the complaints of left ankle pain for past 2 weeks or so. She states that she dropped a hard object on her foot number since then she has been having pain in the Achilles area. Patient states that end of the day her ankle gets swollen. she is on her feet a lot . complaint: ankle injury Onset (ago): week(s) (2) Relieving factors: nothing Exacerbating factors: weight bearing Context: direct blow Other symptoms: none Related Data Allergies Allergy/AdvReac Type Severity Reaction Status Date / Time No Known Drug Allergies Allergy Mild Unknown Verified 05/10/24 08:08 Review of Systems Review of Systems: All systems reviewed & are unremarkable except as noted in HPI and below ROS unobtainable: Yes unobtainable due to endotracheal tube Constitutional: Constitutional: Reports no additional constitutional complaints Eyes: Eyes: Reports no additional eye complaints ENT: Reports system reviewed and no additional complaints, except as documented Cardiovascular: Cardiovascular: Reports no additional cardiovascular complaints Respiratory: Respiratory: Reports no additional respiratory complaints Gastrointestinal: Gastrointestinal: Reports no additional gastrointestinal complaints Musculoskeletal: Musculoskeletal: Reports as per HPI Neurologic: Reports system reviewed and no additional complaints, except as documented PMFSH Past Medical History Medical History No pertinent past medical history Right calf pain Surgical History Surgical History H/O left knee surgery Social History Social History Smoking status: Never smoker Alcohol intake: never Gender identity (if verbalized by the patient): Female Exam Narrative: GENERAL: Well-appearing, well-nourished, and in no acute distress. HEAD: Normocephalic, atraumatic. EYES: PERRLA and EOMI. ENT: Nares clear, no rhinorrhea or epistaxis. Mucous membranes moist. NECK: Supple. CHEST: Clear to auscultation. No respiratory distress. HEART: Regular rate and rhythm. No murmur heard. Normal peripheral pulses. EXTREMITIES: Normal range of motion. No edema. Examination of the left ankle shows no deformity, no swelling SKIN: Warm, dry, no rash. NEURO: No focal deficits. Alert and oriented x3. PSYCH: Normal mood and affect. Course Course Emergency Course: Notified patient about her x-ray findings advised Ryley wrap, continue Tylenol or ibuprofen for pain as stated Vital Signs Vital signs: Vital Signs Temperature 36.7 C 05/10/24 08:04 Pulse Rate 78 05/10/24 08:04 Respiratory Rate 16 05/10/24 08:04 Blood Pressure 134/74 05/10/24 08:04 Pulse Oximetry 98 05/10/24 08:04 Oxygen Delivery Room Air 05/10/24 08:04 Temperature 36.7 C 05/10/24 08:04 Pulse Rate 78 05/10/24 08:04 Respiratory Rate 16 05/10/24 08:04 Blood Pressure 134/74 05/10/24 08:04 Pulse Oximetry 98 05/10/24 08:04 Oxygen Delivery Room Air 05/10/24 08:04 MDM - Extremity Injury (Lower) Imaging Data Radiologist's impression: ITS Impressions Ankle X-Ray 05/10/24 08:33 IMPRESSION: 1. No fracture. Discharge Plan Discharge Clinical Impression: Left ankle sprain Patient Disposition: Home, Self-Care Condition: Stable Instructions: Antibiotic Form, Ankle Sprain (ED) Additional Instructions: Use Ryley wrap, you can take Tylenol ibuprofen. Prescriptions: No Action azithromycin [Zithromax Z-Madhav] 250 mg tablet See Rx Instructions .ROUTE .COMPLEX Qty: 6 0RF Rx Instruction
[2024-05-10 09:31] VITALS: BP 151/93; PULSE 72; RESP 16; O2SAT 100
== END 2024-05-10 09:33 | disposition home or self-care (01) ==
PROVIDERS: Emergency Provider Family Medicine; PCP Internal Medicine Infectious Disease
DX: S93.402A Sprain of unspecified ligament of left ankle, initial encounter (principal); W20.8XXA Other cause of strike by thrown, projected or falling object, initial encounter
CPT/HCPCS: 73610; 99283

== ENCOUNTER 2024-12-28 23:25 | Observation (INO) | payer OTHER, SELFPAY ==
--- NOTE | ~2024-12-28 | NM_ITS ---
EXAMINATION: NM jacinto stress w perfusion DATE: 12/30/2024 15:42 INDICATION: Chest pain TECHNIQUE: Rest images were obtained following intravenous administration of 10.6 mCi Tc99m tetrofosm in (Myoview). The patient was infused intravenously with Lexiscan (Regadenoson). Then, 33.8 mCi Tc99m tetrofosmin (Myoview) was administered intravenously, and stress images were obtained. Data was dirk nstructed into short axis and horizontal and vertical long axis SPECT images. Gated SPECT images were also obtained. COMPARISON: None. FINDINGS: There is no definite reversible or fixed perfusion abnormality to suggest ischemia or infar ction. There is normal left ventricular chamber size, wall motion and ejection fraction. Left ventr icular ejection fraction measures >70%. IMPRESSION: 1. Normal myocardial perfusion at rest and during stress. 2. Left ventricular ejection fraction measuring >70%. Reviewed, dictated and finalized at location A. E MACHINE OPERATOR
--- NOTE | ~2024-12-28 | XR_ITS ---
EXAMINATION: XR chest 1V portable DATE: 12/29/2024 00:27 INDICATION: Chest pain and shortness of breath TECHNIQUE: frontal view of the chest was obtained. COMPARISON: Chest radiograph dated 11/27/2024 FINDINGS: The lungs are clear with no focal airspace opacities, pulmonary edema, pleural effusion or pneumothor ax. The cardiomediastinal silhouette is normal. Mild thoracic dextrocurvature with mild to moderate s pondylosis. IMPRESSION: 1. No acute cardiopulmonary disease. Reviewed, dictated and finalized at location A. C REHABILITATION THERAPIST
--- NOTE | 2024-12-28 23:26 | ECG_ITS ---
Test Date: 2024-12-28 23:34:44 Measurements Intervals [place] Rate: 145 P: 0 NM: 0 QRS: 25 QRSD: 93 T: 15 QT: 278 QTc: 433 Interpretive Statements ATRIAL FIBRILLATION WITH RAPID VENTRICULAR RESPONSE BORDERLINE ST-T WAVE ABNORMALITY- INFERIOR LEADS ABNORMAL ECG Compared to ECG 11/27/2024 23:58:06 SINUS RHYTHM NO LONGER PRESENT Electronically Signed On 12-29-2024 07:48:09 WELL SERVICE DERRICK WORKER by Shawn Morrison D.O.
--- OUTSIDE RECORDS SUMMARY | 2024-12-28 23:26 | XMS_ITS | Referral Summary ---
Author Organization [facility] al Address [address] [place] [address] Care Team Providers Care Job Molder Name Role Phone No, Physician Primary Care Provider [phone] Allergies No known active allergies Medications No known medications Active Problems Problem Noted Date Diagnosed Date COVID-19 05/13/2021 Assessment & Plan (05/13/2021 1:12 PM CDT): -Covid 19 PCR pending. -Check D-dimer - Place on Telemetry with Oximetry, Monitor VS - Check TTE and Consider LE Venous Dopplers - Lovenox daily ppx - prn Tylenol - Daily CBC, CMP - Contact and Respiratory Isolation History of atrial fibrillation 05/13/2021 Assessment & Plan (05/13/2021 1:12 PM CDT): Last TTE arch 2019 that showed normal valvular function and LVEF of 78%. -Hold on DOAC at this time -Start Asa 81 daily. -Place on telmetery -Will check TTE -Check D-dimer Social History Tobacco Use Types Packs/Day Years Used Date Smoking Tobacco: Never Smokeless Tobacco: Never Alcohol Use Standard Drinks/Week Comments Not Currently 0 (1 standard drink = 0.6 oz pur e alcohol) Personal Safety Answer Date Recorded Have you ever been in or are you currently in a harmful physical or emotional relationship or is someone making you feel afraid or unsafe? Denies 12/22/2023 Comments No Sex and Gender Information Value Date Recorded Sex Assigned at Not on file Legal Sex Female 7:50 PM SOCIOLOGY FACULTY MEMBER Gender Identity Not on file Sexual Orientation Not on file Last Filed Vital Signs Vital Sign Reading Time Taken Comments Blood Pressure 134/94 12/22/2023 4:15 PM SOCIOLOGY FACULTY MEMBER Pulse 74 12/22/2023 4:15 PM SOCIOLOGY FACULTY MEMBER Temperature 36.6 C (97.9 F) 12/22/2023 1:00 PM SOCIOLOGY FACULTY MEMBER Respiratory Rate 20 12/22/2023 4:15 PM SOCIOLOGY FACULTY MEMBER Oxygen Saturation 99% 12/22/2023 1:00 PM SOCIOLOGY FACULTY MEMBER Inhaled Oxygen Concentration - - Weight 174.6 kg (385 lb) 12/22/2023 1:00 PM SOCIOLOGY FACULTY MEMBER Height 172.7 cm (5' 8 ) 12/22/2023 1:00 PM SOCIOLOGY FACULTY MEMBER Body Mass Index 58.54 12/22/2023 1:00 PM SOCIOLOGY FACULTY MEMBER Plan of Treatment Not on file Procedures Procedure Name Priority Date/Time Associated Diagnosis Comments DIAGNOSTIC MAMMOGRAM BILATERAL W BEN Schedule Routine, Read Routine (OP Routine) 12/26/2022 10:06 AM SOCIOLOGY FACULTY MEMBER Swelling of breast from Last 3 Months or Most Recently Relevant to Health Maintenance Results * Diagnostic Mammogram Bilateral W Ben (12/26/2022 10:06 AM SOCIOLOGY FACULTY MEMBER) Anatomical Region Laterality Modality Breast Bilateral Mammography 12/26/2022 10:0 9 AM SOCIOLOGY FACULTY MEMBER Impressions 12/26/2022 12:07 PM SOCIOLOGY FACULTY MEMBER 1. A 0.7 cm mass in the RIGHT breast at 6:00 1 cm from the nipple is at low suspicion for malignancy. Short-term follow-up ultrasound versus biopsy options were discussed with the patient. The patient preferred to proceed with biopsy. Ultrasound-guided biopsy is recommended. 2. No focal mammographic or sonographic findings in the LEFT parasternal chest corresponding to the patient's clinical area of concern. 3. No mammographic evidence of malignancy in the LEFT breast. The method of initial detection of finding was patient-reported clinical symptom (Pat). OVERALL FINAL ASSESSMENT: SUSPICIOUS. BI-RADS Category 4A: Low suspicion for malignancy. RECOMMENDATION: 1. Ultrasound-guided biopsy of the 0.7 cm mass in the RIGHT breast at 6:00 1 cm from the nipple. 2. Clinical follow up of reported LEFT parasternal swelling. Given reported associated shortness of breath with swelling, consider appropriate cardiac work up if not already performed. 3. Given family history of premenopausal inflammatory breast cancer in the patient's mother, a formal high risk assessment for breast cancer is recommended. The patient was given the contact information for the high risk breast cancer clinic. Dr. Marin discussed the above findings and recommendations with the patient. The patient was given to option for short term imaging follow up versus biopsy and she opted for biopsy. She has been scheduled to return to the [facility] for biopsy on 01/09/2023 at 12:30 PM. This facility will contact the referring clinician's office for an order. Dictated by: Cristiane Short MD The radiology attending physician has personally reviewed this study, and had reviewed and/or edited this written report and agrees with it. Electronically signed by: VIOLET MARIN MD Narrative 12/26/2022 12:07 PM SOCIOLOGY FACULTY MEMBER EXAMINATION: BILATERAL DIGITAL DIAGNOSTIC MAMMOGRAM INCLUDING CAD AND BILATERAL DIGITAL BREAST TOMOSYNTHESIS; BILATERAL BREAST SONOGRAM HISTORY: 42 year old patient who presents for evaluation of swelling in the LEFT parasternal region. The patient also reports associated shortness of breath. The patient reports no current breast related complaints. The patient reports a family history of inflammatory breast cancer, diagnosed in her mother at age 45. COMPARISON: 06/19/2020 and priors dating back to 2012. TECHNIQUE: Full field digital mammographic views of BOTH breasts were performed, including computer aided detection (CAD) and BILATERAL digital breast tomosynthesis (DBT). Directed ultrasound evaluation of BOTH breasts was performed by a trained manager warehouse and by Dr. Marin. BREAST PARENCHYMAL COMPOSITION: There are scattered areas of fibroglandular density. MAMMOGRAM FINDINGS: There is an oval circumscribed mass in the RIGHT lower central anterior breast measuring 0.8 cm. This appears more conspicuous from 2019 and is new compared to 2019. There is no suspicious distortion or microcalcifications in the RIGHT breast. There is a focal asymmetry in the LEFT upper outer breast which effaces on spot compression views, compatible with normal superimposed fibroglandular tissue. The parenchymal pattern is stable with no new or suspicious asymmetry, mass, architectural distortion, or microcalcifications identified in the LEFT breast. SONOGRAM FINDINGS: Targeted ultrasound of the RIGHT breast was performed in the mammographic area of concern. At 6:00 1 cm from the nipple, there is an oval isoechoic mass with circumscribed margins and no internal vascularity measuring 0.7 x 0.3 x 0.6 cm. This corresponds to the finding on mammography. Targeted ultrasound of the LEFT breast/chest wall was performed in the patient's reported clinical area of concern. In the LEFT subclavicular medial chest wall, there is no focal abnormal solid or cystic lesion suggestive of malignancy in the area of recent concern. Procedure Note Violet Marin MD - 12/26/2022 EXAMINATION: BILATERAL DIGITAL DIAGNOSTIC MAMMOGRAM INCLUDING CAD AND BILATERAL DIGITAL BREAST TOMOSYNTHESIS; BILATERAL BREAST SONOGRAM HISTORY: 42 year old patient who presents for evaluation of swelling in the LEFT parasternal region. The patient also reports associated shortness of breath. The patient reports no current breast related complaints. The patient reports a family history of inflammatory breast cancer, diagnosed in her mother at age 45. COMPARISON: 06/19/2020 and priors dating back to 2012. TECHNIQUE: Full field digital mammographic views of BOTH breasts were performed, including computer aided detection (CAD) and BILATERAL digital breast tomosynthesis (DBT). Directed ultrasound evaluation of BOTH breasts was performed by a trained manager warehouse and by Dr. Marin. BREAST PARENCHYMAL COMPOSITION: There are scattered areas of fibroglandular density. MAMMOGRAM FINDINGS: There is an oval circumscribed mass in the RIGHT lower central anterior breast measuring 0.8 cm. This appears more conspicuous from 2019 and is new compared to 2019. There is no suspicious distortion or microcalcifications in the RIGHT breast. There is a focal asymmetry in the LEFT upper outer breast which effaces on spot compression views, compatible with normal superimposed fibroglandular tissue. The parenchymal pattern is stable with no new or suspicious asymmetry, mass, architectural distortion, or microcalcifications identified in the LEFT breast. SONOGRAM FINDINGS: Targeted ultrasound of the RIGHT breast was performed in the mammographic area of concern. At 6:00 1 cm from the nipple, there is an oval isoechoic mass with circumscribed margins and no internal vascularity measuring 0.7 x 0.3 x 0.6 cm. This corresponds to the finding on mammography. Targeted ultrasound of the LEFT breast/chest wall was performed in the patient's reported clinical area of concern. In the LEFT subclavicular medial chest wall, there is no focal abnormal solid or cystic lesion suggestive of malignancy in the area of recent concern. IMPRESSION: 1. A 0.7 cm mass in the RIGHT breast at 6:00 1 cm from the nipple is at low suspicion for malignancy. Short-term follow-up ultrasound versus biopsy options were discussed with the patient. The patient preferred to proceed with biopsy. Ultrasound-guided biopsy is recommended. 2. No focal mammographic or sonographic findings in the LEFT parasternal chest corresponding to the patient's clinical area of concern. 3. No mammographic evidence of malignancy in the LEFT breast. The method of initial detection of finding was patient-reported clinical symptom (Pat). OVERALL FINAL ASSESSMENT: SUSPICIOUS. BI-RADS Category 4A: Low suspicion for malignancy. RECOMMENDATION: 1. Ultrasound-guided biopsy of the 0.7 cm mass in the RIGHT breast at 6:00 1 cm from the nipple. 2. Clinical follow up of reported LEFT parasternal swelling. Given reported associated shortness of breath with swelling, consider appropriate cardiac work up if not already performed. 3. Given family history of premenopausal inflammatory breast cancer in the patient's mother, a formal high risk assessment for breast cancer is recommended. The patient was given the contact information for the high risk breast cancer clinic. Dr. Marin discussed the above findings and recommendations with the patient. The patient was given to option for short term imaging follow up versus biopsy and she opted for biopsy. She has been scheduled to return to the [facility] for biopsy on 01/09/2023 at 12:30 PM. This facility will contact the referring clinician's office for an order. Dictated by: Cristiane Short MD The radiology attending physician has personally reviewed this study, and had reviewed and/or edited this written report and agrees with it. Electronically signed by: VIOLET MARIN MD Charmaine Cantu MD IMG MAMMO PROCEDURES Fi nal Result from Last 3 Months or Most Recently Relevant to Health Maintenance Insurance [facility] Advance Directives For more information, please contact: [phone] * Full Code (Latest Code Status on File) Date Activated Date Inactivated Comments 01/12/2020 6:28 PM 01/13/2020 8:23 PM Care Teams Job Molder Relationship Specialty Start Date End Date No, Physician PCP - General 08/29/17
--- OUTSIDE RECORDS SUMMARY | 2024-12-28 23:26 | XMS_ITS | Encounter Summary ---
Author Organization [facility] Healthcare Address [address] [place] [address] Care Team Providers Care Truck Manager Name Role Phone No, Physician Primary Care Provider [phone] Reason for Visit * Diagnostic Imaging (Routine) - Closed Specialty Diagnoses / Procedures Referred By Contac t Referred To Contact Procedures Breast Imaging Screening Outside Reference Referral, Self Referral ID Status Reason Start Date Expiration Date Visits Re quested Visits Authorized [id number] Closed 12/26/2022 01/25/2024 1 1 Encounter Details Date Type Department Care Team (Late st Contact Info) Description 06/19/2020 Hospital Encounter [facility] [address] [place] [id number] Social History Tobacco Use Types Packs/Day Years [...] on file Legal Sex Female 7:50 PM ACUTE CARE REGISTERED NURSE Gender Identity Not on file Sexual Orientation Not on file documented as of this encounter Plan of Treatment Not on file documented as of this encounter Procedures Procedure Name Priority Date/Time Associated Diagnosis Comments BREAST IMAGING MG SCREENING OUTSIDE REFERENCE Routine 06/19/2020 12:00 AM CDT documented in this encounter Results * Breast Imaging Screening Outside Reference (06/19/2020 12:00 AM CDT) Impressions [facility] - 12/26/2022 8:16 AM ACUTE CARE REGISTERED NURSE These images are for Reference purposes only and have not been reviewed by [facility] Radiology. There will be no report generated by a [facility] Radiologist. Narrative [facility] - 12/26/2022 8:16 AM ACUTE CARE REGISTERED NURSE EXAMINATION: Images For Reference Purposes Only us Self Referral IMG MAMMO PROCEDURES Final Resul t [facility] documented in this encounter Visit Diagnoses Not on filedocumented in this encounter Additional Health Concerns Infection Onset Date Last Indicated Resolved Time COVID: Suspected 05/08/2021 05/08/2021 05/08/2021 6:23 AM CDT COVID19 05/08/2021 05/08/2021 05/27/2021 3:05 AM CDT documented as of this encounter Care Teams Truck Manager Relationship Specialty Start Date End Date No, Physician PCP - General 08/29/17 documented as of this encounter
--- OUTSIDE RECORDS SUMMARY | 2024-12-28 23:26 | XMS_ITS | Clinical Summary ---
Author Organization [facility] al Address [address] [place] [address] Care Team Providers Care Photographic Process Attendant Name Role Phone No, Physician Primary Care Provider [phone] Allergies No known active allergies Medications No [...] on telmetery -Will check TTE -Check D-dimer Surgical History Surgery Date Site/Laterality Comments BREAST BIOPSY 01/09/2023 Right Medical History Medical History Date Comments Encounter for supervision of normal Supervision of normal pregna ncy - (Added by TW Conv) Atrial fibrillation (CMS/HCC) (HCC) BMI 70 and over, adult (HCC) Social History Tobacco Use Types Packs/Day Years [...] on file Legal Sex Female 7:50 PM WRAPPER CASHIER Gender Identity Not on file Sexual Orientation Not on file Obstetrics History Last Filed Vital Signs Vital Sign Reading Time Taken Comments Blood Pressure 134/94 12/22/2023 4:15 PM WRAPPER CASHIER Pulse 74 12/22/2023 4:15 PM WRAPPER CASHIER Temperature 36.6 C (97.9 F) 12/22/2023 1:00 PM WRAPPER CASHIER Respiratory Rate 20 12/22/2023 4:15 PM WRAPPER CASHIER Oxygen Saturation 99% 12/22/2023 1:00 PM WRAPPER CASHIER Inhaled Oxygen Concentration - - Weight 174.6 kg (385 lb) 12/22/2023 1:00 PM WRAPPER CASHIER Height 172.7 cm (5' 8 ) 12/22/2023 1:00 PM WRAPPER CASHIER Body Mass Index 58.54 12/22/2023 1:00 PM WRAPPER CASHIER Plan of Treatment Health Maintenance Due Date Last Done Comments Cervical Cancer Screening 1978 Colon Cancer Screening-Colonoscopy 1978 Depression Screening 1978 Hepatitis C Screening 1978 Regular Well Visit/Exam 18-64 01/31/1996 Breast Cancer Screening-Mammogram 12/26/2023 12/26/2022, 08/29/2017, 08/18/2017, Additional history exists Influenza Vaccine (#1) 2024 DTaP/Tdap/Td Vaccine (2 - Td or Tdap) 02/02/2030 02/03/2020 HPV Vaccines Aged Out No longer eligi ble based on patient's age to complete this topic Pneumococcal vaccine <65 Aged Out No longer eligible based on patient's age to complete this topic Procedures Procedure Name Priority Date/Time Associated Diagnosis Comments DIAGNOSTIC MAMMOGRAM BILATERAL W BEN Schedule Routine, Read Routine (OP Routine) 12/26/2022 10:06 AM WRAPPER CASHIER Swelling of breast from Last 3 Months or Most Recently Relevant to Health Maintenance Results * Diagnostic Mammogram Bilateral W Ben (12/26/2022 10:06 AM WRAPPER CASHIER) Anatomical Region Laterality Modality Breast Bilateral Mammography 12/26/2022 10:0 9 AM WRAPPER CASHIER Impressions 12/26/2022 12:07 PM WRAPPER CASHIER 1. A 0.7 cm mass in the [...] has been scheduled to return to the [facility] for biopsy on 01/09/2023 at 12:30 PM. This facility will contact the referring clinician's office for an order. Dictated by: Cristiane Short MD The radiology attending physician has personally reviewed this study, and had reviewed and/or edited this written report and agrees with it. Electronically signed by: VIOLET MARIN MD Narrative 12/26/2022 12:07 PM WRAPPER CASHIER EXAMINATION: BILATERAL DIGITAL DIAGNOSTIC MAMMOGRAM INCLUDING CAD [...] BOTH breasts was performed by a trained coach driver and by Dr. Marin. BREAST PARENCHYMAL COMPOSITION: [...] BOTH breasts was performed by a trained coach driver and by Dr. Marin. BREAST PARENCHYMAL COMPOSITION: There are scattered areas of fibroglandular density. MAMMOGRAM FINDINGS: There is an oval circumscribed mass in the RIGHT lower central anterior breast measuring 0.8 cm. This appears more conspicuous from 2020 and is new compared to 2019. There [...] has been scheduled to return to the [facility] for biopsy on 01/09/2023 at 12:30 PM. [...] Most Recently Relevant to Health Maintenance [place] [address] [address] [facility] [place] [address] [facility] Advance Directives For more information, please contact: [phone] * Full Code (Latest Code Status on File) Date Activated Date Inactivated Comments 01/12/2020 6:28 PM 01/13/2020 8:23 PM Care Teams Photographic Process Attendant Relationship Specialty Start Date End Date No, Physician PCP - General 08/29/17
--- OUTSIDE RECORDS SUMMARY | 2024-12-28 23:26 | XMS_ITS | Encounter Summary ---
Author Organization [facility] Healthcare Address [address] [place] [address] Care Team Providers Care Manager Enterprise Name Role Phone No, Physician Primary Care Provider [phone] Encounter Details Date Type Department Care Team (Late st Contact Info) Description 06/02/2020 Telephone [facility] [address] [place] [address] Outpatient Health 4th Floor [address] [place] [address] Elke Cisneros RN Social History Tobacco Use Types Packs/Day Years Used Date Smoking Tobacco: Never Smokeless Tobacco: Never Alcohol Use Standard Drinks/Week Comments Not Currently 0 (1 standard drink = 0.6 oz pur e alcohol) Comments Unknown Sex and Gender Information Value Date Recorded Sex Assigned at Not on file Legal Sex Female 7:50 PM STRENGTH AND CONDITIONING COACH Gender Identity Not on file Sexual Orientation Not on file documented as of this encounter Plan of Treatment Not on file documented as of this encounter Visit Diagnoses Not on filedocumented in this encounter Additional Health Concerns Infection Onset Date Last Indicated Resolved Time COVID: Suspected 05/08/2021 05/08/2021 05/08/2021 6:23 AM CDT COVID19 05/08/2021 05/08/2021 05/27/2021 3:05 AM CDT documented as of this encounter Care Teams Manager Enterprise Relationship Specialty Start Date End Date No, Physician PCP - General 08/29/17 documented as of this encounter
[2024-12-28 23:27] VITALS: BP 145/90; PULSE 150; RESP 22; TEMP 36.4; O2SAT 100
--- OUTSIDE RECORDS SUMMARY | 2024-12-28 23:27 | XMS_ITS | Encounter Summary ---
Author Organization [facility] Healthcare Address [address] [place] [address] Care Team Providers Care Linux Architect Name Role Phone No, Physician Primary Care Provider [phone] Reason for Visit * Diagnostic Imaging (Routine) - Closed Specialty Diagnoses / Procedures Referred By Contac t Referred To Contact Procedures Breast Imaging Screening Outside Reference Referral, Self Referral ID Status Reason Start Date Expiration Date Visits Re quested Visits Authorized [id number] Closed 12/26/2022 01/25/2024 1 1 Encounter Details Date Type Department Care Team (Late st Contact Info) Description 04/08/2019 Hospital Encounter [facility] [address] [place] [id number] Social History Tobacco Use Types Packs/Day Years [...] on file Legal Sex Female 7:50 PM TREATING PLANT PUMPER Gender Identity Not on file Sexual Orientation Not on file documented as of this encounter Plan of Treatment Not on file documented as of this encounter Procedures Procedure Name Priority Date/Time Associated Diagnosis Comments BREAST IMAGING MG SCREENING OUTSIDE REFERENCE Routine 04/08/2019 12:00 AM CDT documented in this encounter Results * Breast Imaging Screening Outside Reference (04/08/2019 12:00 AM CDT) Impressions [facility] - 12/26/2022 8:14 AM TREATING PLANT PUMPER These images are for Reference purposes only and have not been reviewed by [facility] Radiology. There will be no report generated by a [facility] Radiologist. Narrative [facility] - 12/26/2022 8:14 AM TREATING PLANT PUMPER EXAMINATION: Images For Reference Purposes Only us Self Referral IMG MAMMO PROCEDURES Final Resul t [facility] documented in this encounter Visit Diagnoses Not on filedocumented in this encounter Additional Health Concerns Infection Onset Date Last Indicated Resolved Time COVID: Suspected 05/08/2021 05/08/2021 05/08/2021 6:23 AM CDT COVID19 05/08/2021 05/08/2021 05/27/2021 3:05 AM CDT documented as of this encounter Care Teams Linux Architect Relationship Specialty Start Date End Date No, Physician PCP - General 08/29/17 documented as of this encounter
--- OUTSIDE RECORDS SUMMARY | 2024-12-28 23:27 | XMS_ITS | Clinical Summary ---
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 14 tablet 12/10/2021 Active promethazine 25 MG tablet Take 1 tablet (25 mg total) by mouth every 6 (six) hours as needed for Nausea. 14 tablet 12/10/2021 Active Active Problems Problem Noted Date Diagnosed Date Chest pain 05/27/2021 History of atrial fibrillation 05/17/2021 Headache 06/03/2020 Iron deficiency anemia 05/01/2020 Atrial fibrillation ([facility]) 01/31/2020 Family History Medical History Relation Comments [place] Maternal Grandfather Breast Cancer Mother Hypertension Mother Relation Status Comments Maternal Grandfather Mother Social History Tobacco Use Types Packs/Day Years Used Date Smoking Tobacco: Never Smokeless Tobacco: Never Alcohol Use Standard Drinks/Week Comments Not Currently 0 (1 standard drink = 0.6 oz pur e alcohol) Comments No Sex and Gender Information Value Date Recorded Sex Assigned at Not on file Legal Sex Female 6:06 PM CDT Gender Identity Not on file Sexual Orientation Not on file Last Filed Vital Signs Vital Sign Reading Time Taken Comments Blood Pressure 133/76 10/31/2022 1:00 AM 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 Pulse 68 10/31/2022 1:00 AM 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 Temperature 36.6 C (97.8 F) 10/30/2022 8:29 PM 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 Respiratory Rate 16 10/31/2022 1:00 AM 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 Oxygen Saturation 97% 10/31/2022 1:00 AM 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 Inhaled Oxygen Concentration - - Weight 181.4 kg (400 lb) 10/30/2022 8:29 PM 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 Height 172.7 cm (5' 8 ) 10/30/2022 8:29 PM 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 Body Mass Index 60.82 10/30/2022 8:29 PM 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 Plan of Treatment Health Maintenance Due Date Last Done Comments Cervical Cancer Screening Pa p Smear (Age 30 to 64) Every 3 Years 1978 Colorectal Cancer Screening Colonoscopy (10 Years) 1978 Annual Physical 1981 Hepatitis C 01/31/1996 Hepatitis B Vaccines (1 of 3 - 19+ 3-dose series) 1997 Cervical Cancer Screening Pa p with HPV Testing (Age 30 to 64) Every 5 Years 01/31/2008 Cervical Cancer Screening with HPV 01/31/2008 Mammogram Screening 2018 COVID-19 Vaccine (2023-2 5 season) 2024 Influenza Adult (#1) 2024 DTaP, Tdap and Td Vaccines ( 2 - Td or Tdap) 02/02/2030 02/03/2020 Meningococcal B Vaccine Aged Out No l onger eligible based on patient's age to complete this topic Meningococcal Vaccine Aged Out No tristen manuelito eligible based on patient's age to complete this topic Pneumococcal Vaccine: Pediat rics (0 to 5 Years) and At-Risk Patients (6 to 64 Years) Aged Out No longer eligi ble based on patient's age to complete this topic RSV Immunizations Under 20 Months Aged Out No longer eligible based on patient's age to complete this topic Goals Goal Patient Goal Type Associated Problems Recent Progress Patient-Stated? Author Patient will return to prior living situation and remain independent in ADLs upon discharge from hospital General Yaz Gutierrez RN [facility] Advance Directives * Full Code (Latest Code Status on File) Date Activated Date Inactivated Comments 05/28/2021 12:23 AM 05/29/2021 3:36 PM * Full Code Date Activated Date Inactivated Comments 06/03/2020 2:09 AM 06/04/2020 12:58 PM Care Teams Aircraft Mechanic Relationship Specialty Start Date End Date Charmaine Cantu MD [address] [place] [address] PCP - General INTERNAL MEDICINE 06/02/20
--- OUTSIDE RECORDS SUMMARY | 2024-12-28 23:27 | XMS_ITS | Referral Summary ---
Author Organization [facility] Address [address] [place] [address] Care Team Providers Care Senior Portfolio Manager Name Role Phone Unavailable Primary Care Provider Unavailabl e Source Comments [facility],non-owned Affiliates and Associated Physician Practices is amultiple site organization consisting of ambulatory clinics and hospital sitesin [place], [place], [place] and [place]. This disclosure is being madepursuant to the Care Everywhere program and may not contain all information available regarding this patient. Last updated 18.[facility] Allergies No known active allergies Medications Be aware that medications may not be up to date on this document. Always verify current medications with the patient. 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
--- OUTSIDE RECORDS SUMMARY | 2024-12-28 23:27 | XMS_ITS | Data Portability ---
Author Organization [facility] Caden [facility] Address [address] [place] [address] Care Team Providers Care Wrapper Layer Name Role Phone BLANCA CUMMINS Credit Interviewer Unavailable Assessment No assessment recorded. Plan of Treatment Reminders Order Date Submit Date Provider Last Modified By Organization Details Last Modified Time Details Appointments None recorded. Lab HbA1c (hemoglobin A1c), blood 2021 MIGUEL Henriquez, [address], [address], [place], [address], 06:11:34 TSH, ultra-sensi tive, serum 2021 MIGUEL Henriquez, [address], [address], [place], [address], 06:11:34 CBC w/ auto diff 2021 MIGUEL Henriquez, [address], [address], [place], [address], 06:11:35 CMP, serum or plasma 2021 MIGUEL Henriquez, [address], [address], [place], [address], 2 06:11:33 lipid panel, serum 2021 MIGUEL Henriquez, [address], [address], [place], [address], 2 06:11:32 urinalysis, dipstick 2021 022 [facility], [address], [address], [place], [address], 2 06:11:35 measles + mumps + rubella virus IgG panel, QN, serum or plasma 2022 023 [facility], [address], [address], [place], [address], 3 08:24:52 varicella zoster virus IgG Ab, QN, IA, serum 2022 023 [facility], [address], [address], [place], [address], 3 08:24:52 hepatitis B surface Ab, quantitativ e, serum 2022 023 [facility], [address], [address], [place], [address], 3 08:24:51 Referral sleep medicine referral - R/O FARRAH 2020 021 [email or web address] [facility], [address], [address], [place], [address], 1 08:18:24 neurologist referral - Hx of AFIB, transient left sided facial and perioral numbness with a headache 2020 021 [email or web address] Ashanti Childress, [address] [facility] , [address], [place], [address], 1 08:16:55 cardiologis t referral - Hx of AFIB, transient left sided facial and perioral numbness with a headache 2020 021 [email or web address] [facility], [address], [address], [place], [address], 08:15:30 endocrinolo gy referral - Thyroid cysts?, with benign cervical lymphadenop athy 2022 023 [place], [address] [facility], [place], [address], 3 12:14:59 foot and ankle surgeon referral - Swati Elmore toe 2022 023 MIGUEL Not available 22:54:24 Procedures None recorded. Surgeries None recorded. Imaging US, thyroid - Reported neck swelling 2021 022 [facility] ([facility]), [address] [place], [address], 2 12:19:25 MAMMO, diagnostic, digital, bilateral - Reported anterior chest swelling, FHX of breast cancer 2021 022 [facility] ([facility]), [address] [place], [address], 3 13:12:50 Medication Orders Malarone 250 mg-100 mg tablet 2022 023 [facility], [address] [place], [address], 3 10:06:25 azithromyci n 500 mg tablet 2022 023 [facility], [address] [place], [address], 3 10:10:01 Patient TargetsNo targets recorded. Patient Instructions Encounter Date Encounter Id Patient Instructions Last Modified By Organization Details Last Modified Time 05/17/2021 [id number] body mass index: care instructions oajao Not available 05/17/2021 19:02:33 learning about healthy weight oajao Not available 05/17/2021 19:02:33 snoring: care instructions oajao Not available 05/17/2021 15:46:33 Take Metoprolol HS Cardiology, Neurology and Sleep medicine as previously referred Follow up in 6 weeks oajao Not available 05/17/2021 19:00:28 11/03/2022 [id number] body mass index: care instructions oajao Not available 11/03/2022 09:53:41 learning about healthy weight oajao Not available 11/03/2022 09:53:41 A healthy lifestyle: care instructions oajao Not available 11/03/2022 09:53:41 Labs US MMG Foll ow up as scheduled on 11/28/2021 oajao Not available 11/03/2022 09:54:21 11/28/2022 [id number] prediabetes: car e instructions oajao Not available 11/28/2022 09:39:10 MMG as previousl y ordered Podiatry Endocrinology Low fat, low CHO diet Follow up in 6 months and PRN oajao Not available 11/28/2022 09:39:06 04/06/2023 [id number] Note from the Out[facility] Immunization record? Malarone, start 2 days before your trip, continue while abroad and stop a week after your return. Side effects wee discussed. Azithromycin for Traveler's diarrhea [facility] Typhoid and Yellow Fever vaccines Labs Mosquito repellent Follow up in 6 months and PRN oajao Not available 04/06/2023 10:09:10 Malaria preventi on and Traveler's diarrhea were both discussed oajao Not available 04/06/2023 10:20:10 04/13/2023 [id number] MMR vaccine: car e instructions oajao Not available 04/13/2023 12:52:03 Reason for Referral Neurologist Referral for Par esthesia Hx of AFIB, transient left sided facial and perioral numbness with a headache Hx of AFIB, transient left sided facial and perioral numbness with a headache Referring Physician: Charmaine Cantu, Internal Medicine, Encounter Date: 05/17/2021 Form Worker Referral for Hi story of atrial fibrillation Hx of AFIB, transient left sided facial and perioral numbness with a headache Hx of AFIB, transient left sided facial and perioral numbness with a headache Referring Physician: Charmaine Cantu, Internal Medicine, Encounter Date: 05/17/2021 Sleep Medicine Referral for Snoring R/O FARRAH Referring Physician: Charmaine Cantu, Internal Medicine, Encounter Date: 05/17/2021 Endocrinology Referral for C yst of thyroid Thyroid cysts?, with benign cervical lymphadenopathy Thyroid cysts?, with benign cervical lymphadenopathy Referring Physician: Charmaine Cantu, Internal Medicine, Encounter Date: 11/28/2022 [facility] Referral for Acqu ired hammer toe of left foot Hammer toe, L. 2nd toe Hammer toe, L. 2nd toe Referring Physician: Charmaine Cantu, Internal Medicine, Encounter Date: 11/28/2022 Results Created Date Observation Date Name Description Value Unit Range Abnormal Flag Note LastModifiedBy Organization Detail LastModifiedTime 11/16/20 22 11/17/2022 LIPID PANEL cholesterol, total 174 mg/dL 100-19 9 Not Available [facility] ([place] [facility]) [address] [place], [address], 11/17/2022 06:11:32 11/16/20 22 11/17/2022 LIPID PANEL triglyceride s 70 mg/dL 0-149 Not Available [facility] ([place] [facility]) [address] [place], [address], 11/17/2022 06:11:32 11/16/20 22 11/17/2022 LIPID PANEL HDL cholesterol 48 mg/dL >39 Not Available [facility] ([place] [facility]) [address] [place], [address], 11/17/2022 06:11:32 11/16/20 22 11/17/2022 LIPID PANEL VLDL cholesterol lb 13 mg/dL 5-40 Not Available [facility] ([place]) [address] [place], [address], 11/17/2022 06:11:32 11/16/20 22 11/17/2022 LIPID PANEL LDL chol calc ([facility]) 113 mg/dL 0-99 above high normal Not Available [facility] ([place]) [address] [place], [address], 11/17/2022 06:11:32 11/16/20 22 11/17/2022 COMP. METAB OLIC PANEL (14) glucose 106 mg/dL 70-99 above high normal Not Available [facility] ([place]) [address] [place], [address], 11/17/2022 06:11:33 11/16/20 22 11/17/2022 COMP. METAB OLIC PANEL (14) BUN 15 mg/dL 6-24 Not Available [facility] ([place]) [address] [place], [address], 11/17/2022 06:11:33 11/16/20 22 11/17/2022 COMP. METAB OLIC PANEL (14) creatinine 0.68 mg/dL 0.57-1 .00 Not Available [facility] ([place]) [address] [place], [address], 11/17/2022 06:11:33 11/16/20 22 11/17/2022 COMP. METAB OLIC PANEL (14) eGFR 110 mL/mi n/1.7 3 >59 Not Available [facility] ([place]) [address] [place], [address], 11/17/2022 06:11:33 11/16/20 22 11/17/2022 COMP. METAB OLIC PANEL (14) BUN/creatini ne ratio 22 9-23 Not Available [facility] ([place]) [address] [place], [address], 11/17/2022 06:11:33 11/16/20 22 11/17/2022 COMP. METAB OLIC PANEL (14) sodium 139 mmol/ L 134-14 4 Not Available [facility] ([place]) [address] [place], [address], 11/17/2022 06:11:33 11/16/20 22 11/17/2022 COMP. METAB OLIC PANEL (14) potassium 4.4 mmol/ L 3.5-5. 2 Not Available [facility] ([place]) [address], [place], [address], 11/17/2022 06:11:33 11/16/20 22 11/17/2022 COMP. METAB OLIC PANEL (14) chloride 105 mmol/ L 96-106 Not Available [facility] ([place]) [address], [place], [address], 11/17/2022 06:11:33 11/16/20 22 11/17/2022 COMP. METAB OLIC PANEL (14) carbon dioxide, total 22 mmol/ L - Not Available [facility] ([place] [facility]) [address], [place], [address], 11/17/2022 06:11:33 11/16/20 22 11/17/2022 COMP. METAB OLIC PANEL (14) calcium 9.0 mg/dL 8.7-10 .2 Not Available [facility] ([place]) [address], [place], [address], 11/17/2022 06:11:33 11/16/20 22 11/17/2022 COMP. METAB OLIC PANEL (14) protein, total 6.2 g/dL 6.0-8. 5 Not Available [facility] ([place]) [address] [place], [address], 11/17/2022 06:11:33 11/16/20 22 11/17/2022 COMP. METAB OLIC PANEL (14) albumin 4.1 g/dL 3.8-4. 8 Not Available [facility] ([place]) [address] [place], [address], 11/17/2022 06:11:33 11/16/20 22 11/17/2022 COMP. METAB OLIC PANEL (14) globulin, total 2.1 g/dL 1.5-4. 5 Not Available [facility] ([place]) [address] [facility], [place], [address], 11/17/2022 06:11:33 11/16/20 22 11/17/2022 COMP. METAB OLIC PANEL (14) A/G ratio 2.0 1.2-2. 2 Not Available [facility] ([facility]) [address] [facility], [place], [address], 11/17/2022 06:11:33 11/16/20 22 11/17/2022 COMP. METAB OLIC PANEL (14) bilirubin, total <0.2 mg/dL 0.0-1. 2 Not Available [facility] ([facility]) [address] [facility], [place], [address], 11/17/2022 06:11:33 11/16/20 22 11/17/2022 COMP. METAB OLIC PANEL (14) alkaline phosphatase 76 IU/L 44-121 Not Available [facility] ([place]) [address] [facility], [place], [address], 11/17/2022 06:11:33 11/16/20 22 11/17/2022 COMP. METAB OLIC PANEL (14) AST (SGOT) 12 IU/L 0-40 Not Available [facility] ([facility]) [address] [place], [address], 11/17/2022 06:11:33 11/16/20 22 11/17/2022 COMP. METAB OLIC PANEL (14) ALT (SGPT) 12 IU/L 0-32 Not Available [facility] ([facility]) [address] [place], [address], 11/17/2022 06:11:33 11/16/20 22 11/17/2022 URINA LYSIS , ROUTI NE specific gravity 1.021 1.005- 1.030 Not Available [facility] ([place]) [address] [facility], [place], [address], 11/17/2022 06:11:34 11/16/20 22 11/17/2022 URINA LYSIS , ROUTI NE pH 5.5 5.0-7. 5 Not Available [facility] ([place]) [address] [facility], [place], [address], 11/17/2022 06:11:34 11/16/20 22 11/17/2022 URINA LYSIS , ROUTI NE urine-color YELLOW yellow Not Available [facility] ([place]) [address] [facility], [place], [address], 11/17/2022 06:11:34 11/16/20 22 11/17/2022 URINA LYSIS , ROUTI NE appearance CLEAR clear Not Available [facility] ([facility]) [address] [facility], [place], [address], 11/17/2022 06:11:34 11/16/20 22 11/17/2022 URINA LYSIS , ROUTI NE WBC esterase NEGATI VE negati ve Not Available [facility] ([place]) [address] [facility], [place], [address], 11/17/2022 06:11:34 11/16/20 22 11/17/2022 URINA LYSIS , ROUTI NE protein NEGATI VE negati ve/tra ce Not Available [facility] ([place]) [address] [facility], [place], [address], 11/17/2022 06:11:34 11/16/20 22 11/17/2022 URINA LYSIS , ROUTI NE glucose NEGATI VE negati ve Not Available [facility] ([facility]) [address] [place], [address], 11/17/2022 06:11:34 11/16/20 22 11/17/2022 URINA LYSIS , ROUTI NE ketones NEGATI VE negati ve Not Available [facility] ([facility]) [address] [place], [address], 11/17/2022 06:11:34 11/16/20 22 11/17/2022 URINA LYSIS , ROUTI NE occult blood NEGATI VE negati ve Not Available [facility] ([facility]) [address] [place], [address], 11/17/2022 06:11:34 11/16/20 22 11/17/2022 URINA LYSIS , ROUTI NE bilirubin NEGATI VE negati ve Not Available [facility] ([facility]) [address] [place], [address], 11/17/2022 06:11:34 11/16/20 22 11/17/2022 URINA LYSIS , ROUTI NE urobilinogen ,semi-qn 0.2 mg/dL 0.2-1. 0 Not Available [facility] ([facility]) [address] [place], [address], 11/17/2022 06:11:34 11/16/20 22 11/17/2022 URINA LYSIS , ROUTI NE nitrite, urine NEGATI VE negati ve Not Available [facility] ([place]) [address] [facility], [place], [address], 11/17/2022 06:11:34 11/16/20 22 11/17/2022 URINA LYSIS , ROUTI NE microscopic examination COMMEN T Micro scopi c not indic ated and not perfo rmed. Not Available [facility] ([facility]) [address] [place], [address], 11/17/2022 06:11:34 11/16/20 22 11/17/2022 CBC WITH DIFFE RENTI AL/PL ATELE T WBC 6.8 x10e3 /uL 3.4-10 .8 Not Available [facility] ([facility]) [address] [facility], [place], [address], 11/17/2022 06:11:35 11/16/20 22 11/17/2022 CBC WITH DIFFE RENTI AL/PL ATELE T RBC 4.35 x10e6 /uL 3.77-5 .28 Not Available [facility] ([facility]) [address] [facility], [place], [address], 11/17/2022 06:11:35 11/16/20 22 11/17/2022 CBC WITH DIFFE RENTI AL/PL ATELE T hemoglobin 11.3 g/dL 11.1-1 5.9 Not Available [facility] ([facility]) [address] [facility], [place], [address], 11/17/2022 06:11:35 11/16/20 22 11/17/2022 CBC WITH DIFFE RENTI AL/PL ATELE T hematocrit 37.2 % 34.0-4 6.6 Not Available [facility] ([facility]) [address] [facility], [place], [address], 11/17/2022 06:11:35 11/16/20 22 11/17/2022 CBC WITH DIFFE RENTI AL/PL ATELE T MCV 86 fL 79-97 Not Available [facility] ([facility]) [address] [facility], [place], [address], 11/17/2022 06:11:35 11/16/20 22 11/17/2022 CBC WITH DIFFE RENTI AL/PL ATELE T MCH 26.0 pg 26.6-3 3.0 below low normal Not Available [facility] ([facility]) [address] [place], [address], 11/17/2022 06:11:35 11/16/20 22 11/17/2022 CBC WITH DIFFE RENTI AL/PL ATELE T MCHC 30.4 g/dL 31.5-3 5.7 below low normal Not Available [facility] ([facility]) [address] [facility], [place], [address], 11/17/2022 06:11:35 11/16/20 22 11/17/2022 CBC WITH DIFFE RENTI AL/PL ATELE T RDW 13.3 % 11.7-1 5.4 Not Available [facility] ([facility]) [address] [facility], [place], [address], 11/17/2022 06:11:35 11/16/20 22 11/17/2022 CBC WITH DIFFE RENTI AL/PL ATELE T platelets 197 x10e3 /uL 150-45 0 Not Available [facility] ([facility]) [address] [facility], [place], [address], 11/17/2022 06:11:35 11/16/20 22 11/17/2022 CBC WITH DIFFE RENTI AL/PL ATELE T neutrophils 62 % notest ab. Not Available [facility] ([facility]) [address] [facility], [place], [address], 11/17/2022 06:11:35 11/16/20 22 11/17/2022 CBC WITH DIFFE RENTI AL/PL ATELE T lymphs 27 % notest ab. Not Available [facility] ([facility]) [address] [place], [address], 11/17/2022 06:11:35 11/16/20 22 11/17/2022 CBC WITH DIFFE RENTI AL/PL ATELE T monocytes 7 % notest ab. Not Available [facility] ([facility]) [address] [place], [address], 11/17/2022 06:11:35 11/16/20 22 11/17/2022 CBC WITH DIFFE RENTI AL/PL ATELE T eos 3 % notest ab. Not Available [facility] ([facility]) [address] [place], [address], 11/17/2022 06:11:35 11/16/20 22 11/17/2022 CBC WITH DIFFE RENTI AL/PL ATELE T basos 1 % notest ab. Not Available [facility] ([facility]) [address] [facility], [place], [address], 11/17/2022 06:11:35 11/16/20 22 11/17/2022 CBC WITH DIFFE RENTI AL/PL ATELE T neutrophils (absolute) 4.3 x10e3 /uL 1.4-7. 0 Not Available [facility] ([facility]) [address] [facility], [place], [address], 11/17/2022 06:11:35 11/16/20 22 11/17/2022 CBC WITH DIFFE RENTI AL/PL ATELE T lymphs (absolute) 1.9 x10e3 /uL 0.7-3. 1 Not Available [facility] ([facility]) [address] [facility], [place], [address], 11/17/2022 06:11:35 11/16/20 22 11/17/2022 CBC WITH DIFFE RENTI AL/PL ATELE T monocytes(ab solute) 0.5 x10e3 /uL 0.1-0. 9 Not Available [facility] ([facility]) [address] [facility], [place], [address], 11/17/2022 06:11:35 11/16/20 22 11/17/2022 CBC WITH DIFFE RENTI AL/PL ATELE T eos (absolute) 0.2 x10e3 /uL 0.0-0. 4 Not Available [facility] ([facility]) [address] [facility], [place], [address], 11/17/2022 06:11:35 11/16/20 22 11/17/2022 CBC WITH DIFFE RENTI AL/PL ATELE T baso (absolute) 0.0 x10e3 /uL 0.0-0. 2 Not Available [facility] ([facility]) [address] [place], [address], 11/17/2022 06:11:35 11/16/20 22 11/17/2022 CBC WITH DIFFE RENTI AL/PL ATELE T immature granulocytes 0 % notest ab. Not Available [facility] ([facility]) [address] [place], [address], 11/17/2022 06:11:35 11/16/20 22 11/17/2022 CBC WITH DIFFE RENTI AL/PL ATELE T immature grans (abs) 0.0 x10e3 /uL 0.0-0. 1 Not Available [facility] ([facility]) [address] [facility], [place], [address], 11/17/2022 06:11:35 11/16/20 22 11/17/2022 HEMOG LOBIN A1C hemoglobin A1C 5.5 % 4.8-5. 6 Predi abete s: 5.7 - 6.4 Diabe frank: >6.4 Glyce breezy contr ol for adult s with diabe frank: <7.0 Not Available [facility] ([facility]) [address] [facility], [place], [address], 11/17/2022 06:11:34 11/16/20 22 11/17/2022 TSH RFX ON ABNOR MAL TO FREE T4 TSH 3.610 uIU/m L 0.450- 4.500 Not Available [facility] ([facility]) [address] [place], [address], 11/17/2022 06:11:33 04/06/20 23 04/07/2023 HEPAT ITIS B SURF AB QUANT hepatitis B surf Ab quant <3.1 below low normal Statu s of Immun ity Anti- HBs Level ----- ----- ----- --- ----- ----- ---- Incon siste nt with Immun ity 0.0 - 9.9 Consi stent with Immun ity >9.9 Not Available [facility] ([facility]) [address] [facility], [place], [address], 04/07/2023 08:24:51 04/06/20 23 04/07/2023 MEASL ES/MU MPS/R UBELL A IMMUN ITY rubella antibodies, IgG 1.08 index immune >0.99 Non-i mmune <0.90 Equiv ocal 0.90 - 0.99 Immun e >0.99 Not Available [facility] ([facility]) [address] [facility], [place], [address], 04/07/2023 08:24:52 04/06/2004/07/2023 MEASL ES/MU MPS/R UBELL A IMMUN ITY measles antibodies, IgG 142.0 AU/mL immune >16.4 Negat mary <13.5 Equiv ocal 13.5 - 16.4 Posit mary >16.4 Prese nce of antib odies to Rubeo la is presu mptiv e evide nce of immun ity excep t when acute infec tion is suspe cted. Not Available [facility] ([facility]) [address] [facility], [place], [address], 04/07/2023 08:24:52 04/06/2004/07/2023 MEASL ES/MU MPS/R UBELL A IMMUN ITY mumps abs, IgG <9.0 AU/mL immune >10.9 below low normal Negat mary <9.0 Equiv ocal 9.0 - 10.9 Posit mary >10.9 A posit mary resul t gener ally indic ates past expos ure to Mumps virus or previ ous vacci natio n. Not Available [facility] ([facility]) [address] [facility], [place], [address], 04/07/2023 08:24:52 04/06/2004/07/2023 VARIC BRYAN- ZOSTE R V AB, IGG varicella zoster IgG 1414 index immune >165 Negat mary <135 Equiv ocal 135 - 165 Posit mary >165 A posit mary resul t gener ally indic ates expos ure to the patho gen or admin istra tion of speci fic immun oglob ulins , but it is not indic ation of activ e infec tion or stage of disea se. Not Available [facility] ([facility]) [address], [place], [address], 04/07/2023 08:24:52 05/17/20 21 05/11/2021 CT, brain , w/o contr ast No observ ation record ed. [place] [address], [place], [address], 05/17/2021 15:19:08 05/27/20 21 05/27/2021 XR, chest No observ ation record ed. [facility] [place], [address], 05/28/2021 08:30:40 05/28/20 21 05/28/2021 CT, angio gram, chest , w/ contr ast No observ ation record ed. [facility] [place], [address], 05/28/2021 08:32:20 05/28/20 21 05/28/2021 trans -thor acic echoc ardio gram (TTE) (PROC ) No observ ation record ed. [facility] [place], [address], 05/28/2021 18:55:17 05/29/20 21 05/28/2021 XR, chest No observ ation record ed. [facility] [address] [facility], [place], [address], 05/30/2021 14:27:25 12/10/19 22 12/10/2021 XR, ankle No observ ation record ed. [facility] [address] [facility], [place], [address], 12/11/2021 09:36:12 12/10/19 22 12/10/2021 XR, ankle + foot No observ ation record ed. [facility] [facility], [place], [address], 12/11/2021 09:37:07 12/10/19 22 12/10/2021 XR, knee No observ ation record ed. [facility] [facility], [place], [address], 12/11/2021 09:37:45 02/24/2002/23/2022 XR, chest , 2 view No observ ation record ed. [address], [place], [address], 02/23/2022 08:40:59 08/07/2008/07/2022 US, thuy monk s, lower extre mity No observ ation record ed. [address], [place], [address], 08/08/2022 08:56:45 08/07/2008/07/2022 US, thuy monk s, lower extre mity No observ ation record ed. [address], [place], [address], 08/08/2022 08:57:12 10/30/20 10/30/2022 XR, chest No observ ation record ed. [facility], [place], [address], 10/30/2022 23:08:28 10/31/20 22 10/30/2022 CT, chest , w/ contr ast No observ ation record ed. [facility], [place], [address], 10/31/2022 06:38:40 10/31/20 22 10/31/2022 CT, neck, soft tissu e, w/o contr ast No observ ation record ed. [facility], [place], [address], 11/03/2022 14:01:09 11/10/20 22 11/08/2022 US, thyro id No observ ation record ed. [facility] ([facility]) [address] [place], [address], 11/28/2022 09:34:02 12/26/19 23 12/26/2022 MAMMO , diagn ostic , digit al, bilat eral No observ ation record ed. [facility] [address], [address], 04/06/2023 09:44:22 12/26/19 23 12/26/2022 MAMMO , diagn ostic , digit al, bilat eral No observ ation record ed. [address], [address], 04/06/2023 09:44:22 12/26/19 23 12/26/2022 MAMMO , diagn ostic , digit al, bilat eral No observ ation record ed. [address], [address], 04/06/2023 09:44:22 12/27/19 23 11/26/2022 biops y, breas t (PROC ) No observ ation record ed. [address], [place], [address], 04/06/2023 09:44:22 01/09/20 23 01/09/2023 needl e core biops y, breas t, ultra sound vanessa nce (PROC ) No observ ation record ed. [address], [place], [address], 04/06/2023 09:44:21 01/09/20 23 01/09/2023 biops y, breas t, needl e aspir ation (PROC ) No observ ation record ed. [address], [address], 04/06/2023 09:44:21 01/12/20 23 01/09/2023 biops y, breas t, w/ ultra sound vanessa nce (PROC ) No observ ation record ed. [address], [place], [address], 04/06/2023 09:44:21 01/12/20 23 01/09/2023 MAMMO , diagn ostic , digit al, bilat eral No observ ation record ed. [address], [place], [address], 04/06/2023 09:44:21 09/01/20 23 09/01/2023 XR, knee No observ ation record ed. [place] [address], [place], [address], 09/11/2023 15:05:14 05/10/20 24 05/10/2024 XR, ankle No observ ation record ed. [address] [address], [place], [address], 05/10/2024 10:04:07 11/28/19 25 11/27/2024 XR, chest No observ ation record ed. [facility] [address], [place], [address], 11/28/2024 09:07:39 Result Notes None recorded. Problems Name Problem SNOMED Code Status Onset Date Resolution Date Notes Provider Name and Address Organization Details Recorded Time Influenza vaccination declined 310181326 Active 2019 Charmaine Cantu MD Attn: Lion hughes,[address], [place], [address], [place] [facility] 2 13:28:18 Snoring [id number] Active 2019 Charmaine Cantu MD Attn: Lion hughes,[address], [place], [address], [place] [facility] 2 13:28:18 Atrial fibrillatio n 70478299 Active 2019 Charmaine Cantu MD Attn: Lion hughes,[address], [place], [address], [place] [facility] 1 19:01:16 Body mass index 40+ - severely obese 875730071 Active 2019 Charmaine Cantu MD Attn: Lion hughes,[address], [place], [address], [place] [facility] 2 13:28:18 Iron deficiency anemia 08053518 Active 2019 Charmaine Cantu MD Attn: Lion hughes,[address], [place], [address], [place] [facility] 1 19:01:16 Paresthesia 64563032 Active 2019 Charmaine Cantu MD Attn: Lion hughes,[address], [place], [address], [place] [facility] 2 13:28:18 Screening for malignant neoplasm of cervix Active 2019 Charmaine Cantu MD Attn: Gordonjayson hughes,[address], [place], [address], [place] [facility] 2 13:28:18 Noncomplian ce with medication regimen 447086193 Active 2019 Charmaine Cantu MD Attn: Accountjayson g,[address], [place], [address], [place] [facility] 2 13:28:18 History of atrial fibrillatio n 771406244 Active 2020 Charmaine Cantu MD Attn: Accountin g,[address] [facility], [place], [address], [place] [facility] 1 19:01:16 Noncomplian ce with treatment 6803624 Active 2020 Charmaine Cantu MD Attn: Accountin g,[address] [facility], [place], [address], [place] [facility] 2 13:28:18 Family history of breast cancer 717115219 Active 2021 Charmaine Cantu MD Attn: Accountjayson g,[address] [facility], [place], [address], [place] [facility] 2 13:28:18 Chest pain 56438180 Active 2020 Charmaine Cantu MD Attn: Accountjayson g,[address] [facility], [place], [address], [place] [facility] 2 13:26:13 Headache 14707210 Active 2019 Charmaine Cantu MD Attn: Accountin g,[address] [facility], [place], [address], [place] [facility] 2 13:26:13 Impaired fasting glycemia 340458753 Active 2022 Charmaine Cantu MD Attn: Gordonin g,[address] [facility], [place], [address], [place] [facility] 3 09:39:06 Acquired hammer toe of left foot 2595036483648 103 Active 2022 Charmaine Cantu MD Attn: Lion hughes,[address] [facility], [place], [address], [facility] 3 09:52:13 SARS-CoV-2 antigen vaccine declined 3836175875 Active 2022 Charmaine Cantu MD Attn: Lion hughes,[address] [facility], [place], [address], [facility] - [facility] 3 10:08:21 Problem Notes None recorded. Procedures Surgical History Date Name Laterality Status Provider Name and Address Organization Details Recorded Time 0 Date of Last Mammogram completed Naye Meek MA [facility] 11/03/2020 08:46:45 2 Date of Last Pap Smear completed Naye Meek MA [facility] 11/03/2020 08:46:50 Knee Surgery completed Cristiane Walsh MA [facility] 01/31/2020 10:41:22 Imaging Results Imaging Date Name Status LastModified by Organization Details LastModified Time 05/11/2021 CT, brain, w/o contrast completed [address], [place], [address], 05/17/2021 15:19:08 05/27/2021 XR, chest completed [facility] [place], [address], 05/28/2021 08:30:40 05/28/2021 CT, angiogram, chest, w/ contrast completed [facility] [place], [address], 05/28/2021 08:32:20 05/28/2021 trans-thoracic echocardiogram (TTE) (PROC) completed [facility], [address], 05/28/2021 18:55:17 05/28/2021 XR, chest completed [facility], [place], [address], 05/30/2021 14:27:25 12/10/2021 XR, ankle completed [facility] [place], [address], 12/11/2021 09:36:12 12/10/2021 XR, ankle + foot completed [facility], [place], [address], 12/11/2021 09:37:07 12/10/2021 XR, knee completed [facility] [place] [facility], [place], [address], 12/11/2021 09:37:45 02/23/2022 XR, chest, 2 view completed [address] [place] [address], [address], 02/23/2022 08:40:59 08/07/2022 US, duplex, venous, lower extremity completed [address], [place], [address], 08/08/2022 08:56:45 08/07/2022 US, duplex, venous, lower extremity completed [address], [address], 08/08/2022 08:57:12 10/30/2022 XR, chest completed [facility] [address], [place], [address], 10/30/2022 23:08:28 10/30/2022 CT, chest, w/ contrast completed [facility], [place], [address], 10/31/2022 06:38:40 10/31/2022 CT, neck, soft tissue, w/o contrast completed [facility], [place], [address], 11/03/2022 14:01:09 11/08/2022 US, thyroid completed [facility] ([facility] Sched[facility]) [address] [place], [address], 11/28/2022 09:34:02 12/26/2022 MAMMO, diagnostic, digital, bilateral completed [facility] Breast [address], [address], 04/06/2023 09:44:22 12/26/2022 MAMMO, diagnostic, digital, bilateral completed [address], [address], 04/06/2023 09:44:22 12/26/2022 MAMMO, diagnostic, digital, bilateral completed [address], [address], 04/06/2023 09:44:22 11/26/2022 biopsy, breast (PROC) completed [address], [address], 04/06/2023 09:44:22 01/09/2023 needle core biopsy, breast, ultrasound guidance (PROC) completed [address], [address], 04/06/2023 09:44:21 01/09/2023 biopsy, breast, needle aspiration (PROC) completed [facility] Breast [address], [address], 04/06/2023 09:44:21 01/09/2023 biopsy, breast, w/ ultrasound guidance (PROC) completed [address], [address], 04/06/2023 09:44:21 01/09/2023 MAMMO, diagnostic, digital, bilateral completed [address], [address], 04/06/2023 09:44:21 09/01/2023 XR, knee completed [address] [place] [address], [address], 09/11/2023 15:05:14 05/10/2024 XR, ankle completed [address] [place] [address], [address], 05/10/2024 10:04:07 11/27/2024 XR, chest completed [address] [place] [address], [address], 11/28/2024 09:07:39 Procedure Notes None recorded. Medical Equipment None Reported. Allergies Allergen ID Allergen Name Allergen Category Reaction Reaction Severity Criticality Documentation Date Start Date Code Code System Note Provider Name and Address Organization Details Recorded Time 922668 metoprolo l Not available dizziness nausea mild mild low 11/03/20222020 6918 RxNorm Not Available Not Available Not Available Medications Name Sig Start Date Stop Date Status Note LastModified by Organization Details LastModified Time metoprolol succinate ER 50 mg tablet,exte nded release 24 hr Take 1 tablet every day by oral route as directed for 30 days. 05/01 completed Not Available Not Available Not Available atovaquone 250 mg-proguani l 100 mg tablet Take 1 tablet every day by oral route with meals for 21 days. active Not Available Not Available No t Available prednisone 20 mg tablet TAKE 1 & 1/2 (ONE & ONE-HALF) TABLETS BY MOUTH ONCE DAILY 11/03 completed Not Available Not Available Not Available penicillin V potassium 500 mg tablet TAKE 1 TABLET BY MOUTH TWICE DAILY 04/06 completed Not Available Not Available Not Available meclizine 25 mg tablet 05/17 completed Not Available Not Available Not Available ferrous sulfate 325 mg (65 mg iron) tablet Take 1 tablet every day by oral route as directed for 30 days. 11/03 completed Not Available Not Available Not Available metoprolol succinate ER 25 mg tablet,exte nded release 24 hr Take 1 tablet every day by oral route as directed for 30 days. 11/03 completed Not Available Not Available Not Available albuterol sulfate HFA 90 mcg/actuati on aerosol inhaler INHALE 1 PUFF BY MOUTH 4 TIMES DAILY 11/03 completed Not Available Not Available Not Available azithromyci n 500 mg tablet Take 2 tablets every day by oral route as needed for 1 day. active Not Available Not Available No t Available Eliquis 5 mg tablet Take 1 tablet every 12 hours by oral route as directed for 30 days. 11/03 completed Not Available Not Available Not Available Vitals Date Recorded Body height Body mass index (BMI) Body weight Oxygen saturation Oxygen saturation in Arterial blood by Pulse oximetry Respiratory rate Heart rate Body temperature Systolic blood pressure Diastolic blood pressure Provider Name and Address Organization Details Last Updated DateTime 1 172.72 cm 58.8 kg/m2 997571. 53 g 96 % 96 % 16 /min 82 /min 98.2 [degF] 116 mm[Hg] 80 mm[Hg] Cristiane Walsh MA [place] [facility] 1 15:11:47 Date Recorded Body height Body mass index (BMI) Body weight Oxygen saturation Oxygen saturation in Arterial blood by Pulse oximetry Respiratory rate Heart rate Systolic blood pressure Diastolic blood pressure Provider Name and Address Organization Details Last Updated DateTime 2 172.72 cm 60.4 kg/m2 607582. 17 g 96 % 96 % 16 /min 80 /min 126 mm[Hg] 80 mm[Hg] Cristiane Walsh MA [place] - [facility] 2 09:22:23 Date Recorded Body height Body mass index (BMI) Body weight Oxygen saturation Oxygen saturation in Arterial blood by Pulse oximetry Respiratory rate Heart rate Systolic blood pressure Diastolic blood pressure Provider Name and Address Organization Details Last Updated DateTime 3 172.72 cm 59.1 kg/m2 351787. 28 g 98 % 98 % 16 /min 84 /min 120 mm[Hg] 76 mm[Hg] Cristiane Walsh [place] [facility] 3 09:26:30 Date Recorded Body height Body mass index (BMI) Body weight Oxygen saturation Oxygen saturation in Arterial blood by Pulse oximetry Heart rate Respiratory rate Systolic blood pressure Diastolic blood pressure Provider Name and Address Organization Details Last Updated DateTime 3 172.72 cm 59.3 kg/m2 964848. 46 g 98 % 98 % 68 /min 16 /min 114 mm[Hg] 70 mm[Hg] Cristiane Walsh [place] [facility] 3 09:41:58 Social History Question Answer Notes LastModified by Organizat ion Details LastModified Time Tobacco Smoking Status Never Smoker Not Available [facility] 09/22/2020 03:43:23 Do You Have An Advance Directive? No Information not available 05/17/2021 What Is Your Level Of Alcohol Consumption? None [id number] Information not available 09/22/2020 Are You Blind Or Do You Have Difficulty Seeing? No Information not available 05/17/2021 What Is Your Level Of Caffeine Consumption? Occasional [id number] Information not available 09/22/2020 How Much Tobacco Do You Chew? None [id number] Information not available 09/22/2020 In The 14 Days Before Symptom Onset, Have You Had Close Contact With A Laboratory-confir med COVID-19 While That Case Was Ill? No Information not available 05/17/2021 In The 14 Days Before Symptom Onset, Have You Had Close Contact With A Person Who Is Under Investigation For COVID-19 While That Person Was Ill? No Information not available 05/17/2021 Have You Been To An Area Known To Be High Risk For COVID-19? Yes Information not available 05/17/2021 Are You Deaf Or Do You Have Serious Difficulty Hearing? No Information not available 05/17/2021 What Type Of Diet Are You Following? REGULAR [id number] Information not available 09/22/2020 Do You Or Have You Ever Used E-cigarettes Or Vape? Never Used Electronic Cigarettes [id number] Information not available 09/22/2020 Are There Any Guns Present In Your Home? No [id number] Information not available 09/22/2020 Hard Of Hearing Or Deaf In One Or Both Ears? No Information not available 01/31/2020 Legally Blind In One Or Both Eyes? No Information no t available 01/31/2020 Marital Status Single Informatio n not available 01/31/2020 What Was The Date Of Your Most Recent Tobacco Screening? 04/06/2023 Information not available 04/06/2023 Performs Monthly Self-breast Exam? No Information no t available 01/31/2020 Seat Belts Used Routinely Yes Information not available 01/31/2020 Smoke Alarm In Home Yes Information not available 01/31/2020 Do You Have Smoke And Carbon Monoxide Detectors In Your Home? Yes Information not available 05/17/2021 Do You Or Have You Ever Used Smokeless Tobacco? Never Used Smokeless Tobacco [id number] Information not available 09/22/2020 How Much Tobacco Do You Smoke? No [id number] Information not available 09/22/2020 Do You Use Any Illicit Or Recreational Drugs? No Information not available 05/17/2021 Has Tobacco Cessation Counseling Been Provided? No Information not available 05/17/2021 On What Date Was Tobacco Cessation Counseling Provided? 05/17/2021 Information not available 05/17/2021 How Many Years Have You Smoked Tobacco? 0 [id number] Information not available 09/22/2020 Sex: Unknown Functional Status Question Answer Note LastModified by Organization D etails LastModified Time Are you able to care for yourself? Yes Information n ot available 05/17/2021 Mental Status None recorded. Family History Relationship Description Onset Age of this Age Resolved Age Notes LastModified by Organization Details LastModified Time Mother Malignant tumor of breast [email or web address] Not available 2019 10:34:20 Maternal Grandfather Myocardial infarction [email or web address] Not available 01/30 10:41:52 Medical History Condition Response Coronary Artery Disease N Other Y Atrial Fibrillation Y High Blood Pressure N Depression N COPD N Blood Clots N Anxiety Disorder N Muscle, Joint, or Bone Problems N Acid Reflux (GERD) N Cancer N Stroke N Headaches N Kidney or Bladder Problems N Skin Problems N Asthma N Allergies N Hepatitis N High Cholesterol N Liver Disease N Thyroid Problems N GI Problems N Anemia N Heart Attack (MS) N Diabetes N Seizures/Epilepsy N Osteoporosis N Heart Failure N Gynecological History Statement/Question Response Date of Last Mammogram 08/20/2020 Flow Moderate Date of LMP 10/27/2022 Menses Monthly Y Date of Last Pap Smear 11/20/2011 Age at Menarche 10 Current Control Method None Age at First Child 28 LMP Approximate Obstetrics History GPAL:G 1 P 1 0 0 1 Type Value Full Term 1 Living 1 Total 1 Immunizations Vaccine Type Date Status Note Provider Cornel oden and Address Organization Details Recorded Time Tdap 02/03/2020 [place] [facility] 02/03/2020 10:28:46 Hep B, adult 04/13/2023 [place] [facility] 04/13/2023 11:41:12 MMR 04/13/2023 [place] [facility] 04/13/2023 11:41:12 Past Encounters Encounter ID Performer Location Encounter Start Date Encounter Closed Date Diagnosis/Indication Diagnosis SNOMED-CT Code Diagnosis ICD10 Code Diagnosis Note [id number] Charmaine Cantu MD [facility] (Adult Med) [address] [place] [phone] 01/31/2020 09:46:29 02/03/2020 10:16:49 General examination of patient 537630382 Z00.01 Paresthesia 98419605 R20 .2 History of transient and progressiv e upper and lower extremity numbness with persistent left sided facial numbness.N ot quite typical of a TIA as it involved both sides at the same time. Snoring 93279081 R06.83 Atrial fibrillation 4943 6004 I48.91 Administra tion of diphtheria, pertussis, and tetanus vaccine 304181543 Z23 Influenza vaccination declined 658533015 Z28.21 Body mass index 40+ - severely obese 792103594 Z68.41 Screening for malignant neoplasm of cervix 580469420 Z12.4 [id number] MD Elvis Baig (Adult Med) [address] [place] [address] 04/24/2020 09:25:31 04/27/2020 13:46:15 Paresthesia 94291626 R20.2 History of transient and progressiv e upper and lower extremity numbness with persistent left sided facial numbness.N ot quite typical of a TIA as it involved both sides at the same time. MS? Central imaging will be needed Anemia 809961169 D64.9 Atrial fibrillation 4943 6004 I48.91 Noncomplia nce with medication regimen 403688542 Z91.14 Partly due to the cost of the Eliquis and the dizziness from 50 mg dose of Metoprolol [id number] MD Elvis Baig (Adult Med) [address] [place] [phone] 05/01/2020 10:07:31 05/01/2020 10:52:48 Paresthesia 34235279 R20.2 Worsening of transient and progressiv e upper and lower extremity numbness with persistent left sided facial numbness.N ot quite typical of a TIA as it involved both sides at the same time.MS? Central imaging is still needed Iron defic iency anemia 51859238 D50.9 Headache 23764333 R51 Screening for malignant neoplasm of cervix 220141614 Z12.4 Noncomplia nce with medication regimen 744008627 Z91.14 Partly due to the cost of the Eliquis and the dizziness from 50 mg dose of Metoprolol Atrial fibrillation 4943 6004 I48.91 Neuropathy 403958533 G62 .9 [id number] MD Elvis Baig (Adult Med) [address] [place] [address] 06/12/2020 09:24:16 06/15/2020 09:33:55 Atrial fibrillation 38318983 I48.[address] Sandoval Paresthesia 36786348 R20 .2 Worsening of transient and progressiv e upper and lower extremity numbness with persistent left sided facial numbness.N ot quite typical of a TIA as it involved both sides at the same time.MS not confirmed on the MRINeurolo gy input needed Depression screening 171 321515 Z13.31 Fatigue 43249524 R53.83 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 Regular menses. Last 5-7 daysLast Pap 6-8 years. Denies abnormal Pap.No sexually active. Not on BChx of mother passing at 46 from inflammato ry breast cancer. Last Mammogram 05/2020- Normal Patient complains of constant dull RLQ pain x 1 month On PE: localized RLQ tenderness to palpation. limited exam due to body habitus. Localized mild inflammati on of cervix. cysts noted from 12-3'o clock position. Mild tenderness to cervix with pelvic palpation; right parametria l tenderness . -Pap and nuswab done-Order ed CT abdomen + pelvis with contrast for RLQ pain etiology Right lowe r quadrant pain 448938374 R10.31 RLQ pain x 1 month that is constantly dull, but becomes pressure like each time she stands from sitting. Rates it 7/10. Relieved with walking. Reports gradual progressio n of pain until start of menses. Denies pain during menses, but it returned after menses ended. Patient has monthly menses with regular flow. On PE: limited exam due to body habitus. localized RLQ tenderness to palpation. No masses or hernias appreciate d. Localized mild inflammati on of cervic. cysts noted from 12-3'o clock position. Mild tenderness to cervix with pelvic palpation; right parametria l tenderness . -ordered CT abdomen + pelvis w contrast to rule out potential etiologies - encourage to use NSAIDs and heat for the pain- if the pain gets worse or if she develops high fever, she needs to go to the ER [id number] MD Elvis Baig (Adult Med) [address] [place] [phone] 05/17/2021 14:49:28 05/17/2021 15:59:16 Paresthesia 75623312 R20.2 Worsening of transient and progressiv e upper and lower extremity numbness with persistent left sided facial numbness.N ot quite typical of a TIA as it involved both sides at the same time.MS not confirmed on the MRINeurolo gy input needed Addendum 05/17/2021N eurologist to see History of atrial fibrillation 913612897 Z86.79 Previously on Eliquis which she stopped on her own Vaccine de clined by patient 5801790282 02 Z28.21 I have strongly recommende d that she gets the Covid vaccine, she has had two confirmed infections , she continues to refuse. Snoring 72724940 R06.83 Noncomplia nce with treatment 9512135 Z91.19 Body mass index 40+ - severely obese 834153382 Z68.43 [id number] MD Elvis Baig (Adult Med) [address] [place] [phone] 11/03/2022 09:06:53 11/04/2022 09:36:17 Physical examination 7658111 Z00.01 Neck swelling 080891562 R22.1 Reported Health con dition feared but not present 7673296240 28202 Z71.1 Family his tory of breast cancer 554916306 Z80.3 Chest swelling 996282108 R22.2 Reported Body mass index 40+ - severely obese 460375924 Z68.43 Morbid obesity 175528910 E66.01 Influenza vaccination declined 633064263 Z28.21 [id number] [facility] [address] [place] [phone] 11/28/2022 09:03:51 11/30/2022 12:43:44 Cyst of thyroid 92042445 E04.1 Thyroid cysts?, with benign cervical lymphadeno pathyDiscu ssed Cervical lymphadenopathy 179849553 R59.0 Thyroid cysts?, with benign cervical lymphadeno nabeel Acquired h ammer toe of left foot 5673689631 276322 M20.42 Impaired f asting glycemia 809216906 R73.01 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 [id number] MD Elvis Baig (Adult Med) [address] [place] [phone] 04/06/2023 09:29:57 04/07/2023 12:26:12 Antibody measurement 5691892 Z01.84 Patient ad vised about anti-malaria prophylaxis 641788823 Z71.89 Antibiotic prophylaxis indicated 345368330 Z78.9 SARS-CoV-2 antigen vaccine declined 2759845328 Z28.21 Influenza vaccination declined 279666301 Z28.21 [id number] SHANNON Escalante (Adult Med) [address] [place] [address] 04/13/2023 10:58:39 04/14/2023 12:32:46 Requires course of hepatitis B vaccination 895908475 Z28.39 Administra tion of measles and mumps and rubella vaccine 37469570 Z23 Health Concerns Section Related Observation LastModified by Organization Detai ls LastModified Time None Recorded Concern Status LastModified by Organization Details LastModified Time None Recorded Advance Directives Directive N: Payers Encounter Date Sequence Insurance Name Policy Number Policy Mendoza Covered Member ID Mendoza Member ID Guarantor Name 05/17/2021 1 [facility] PRIOR TO 05/20/2021 (MEDICAID REPLACEMENT - HMO) Tish Devries [id number] Tish Devries 11/03/2022 1 [facility] PRIOR TO 05/20/2021 (MEDICAID REPLACEMENT - HMO) Tish Devries [id number] Tish Jaycob 11/28/2022 1 [facility] ON OR AFTER 05/20/21 (MEDICAID REPLACEMENT - HMO) Tish Devries [id number] Tish Devries 04/06/2023 1 [facility] ON OR AFTER 05/20/21 (MEDICAID REPLACEMENT - HMO) Tish Devries [id number] Tish Devries 04/13/2023 1 [facility] ON OR AFTER 05/20/21 (MEDICAID REPLACEMENT - HMO) Tish Devries [id number] Tish Devries Notes Date Note Type Note Provider Name and Address Organization Details Recorded Time 05/17/2021 text/html I wake up like my heart like does something Waves of that, my hands will feel numb He said he didn't feel like I needed to be on blood thinners I feel like I feel like I am going to pass out Ms Devries returns, on her last visit on 06/12/2020, the plan was a neurology consultation for her parasthesia, Eliquis for her AFIB and prior to that she had been referred to the armhole sewer on 01/31/2020 and the sleep physician on 01/31/2020. It appears that she stopped the Eliquis on her own. Recently she has been to the ER three times with multiple symptoms including a cough, SOB, chest pain and palpitations. She also appears to be having apneic episodes and anxiety. She was diagnosed on 05/08/2021 with Covid 19 although she states that she has no symptoms despite ER records confirming that she had presented with a cough and SOB. She denies any further symptoms, but she is now ready to make an appointment with the specialists that she was referred to. She has started the Metoprolol but she feels that it makes her feel different Charmaine Cantu MD Attn: Accounting, [address] [place], [address], [facility] 05/17/2021 19:03:31 11/03/2022 text/html Acute issues onl y I have a bump right here and it is a swollen right here Ms Devries returns, she noticed a lesion on her right side of her chest and her neck, she was seen in the ER and had unremarkable imaging studies. She is quite convinced that she and her friend who is a nurse both felt masses in both areas. She denies any chest trauma or recent illness. Charmaine Cantu MD Attn: Accounting, [address] [place], [address], [facility] 11/03/2022 13:50:51 11/28/2022 text/html It's my toe, It got banged up a little bit Ms Devries injured the 2nd toe of her left foot a while ago and later on she heard a pop. Since then the toe has appeared different. Charmaine Cantu MD Attn: Accounting, [address] [place], [address], [facility] 11/28/2022 10:25:31 04/06/2023 text/html We are told to see our Doctor's, we are going to An She is planning a trip to [facility] for 12 days, [place]. She continues to refuse the Influenza and COVID vaccines. In the interim, she had a negative breast Bx and was seen by the foot and ankle surgeon and ceramic painter. Charmaine Cantu MD Attn: Accounting,[address] [facility], [place], [address], [place] [facility] 04/06/2023 10:20:33 OBGyn Episode Ob Episode Information Episode Created Date Number of Fetuses Patient Bloodtype Patient rh Status Prepregnancy Weight lbs Domestic Partner Domestic Partner Phone Father Name Gas Engineer Status 11/03/20 20 1 CLOSED Fetus Data First Name Last Name Admitted to NICU Weight (g) Sex Living Outcome Pediatric Complications Fetus ID Race Codes Race Delivery Type F Full Term [id number] Curtis Calculation Initial Curtis Date Initial Exam Date Initial Exam Provider Initial Ultrasound Date Last Menstrual Period Date Ultra Sound Weeks Gestation 0 Eighteen To Twenty Week Curtis Update Ultra Sound Date Fundal Height At Umbil Quickening Date Ultra Sound Latest Weeks Gestation Final Curtis Confirmed By Final Curtis Confirmed Date Final Curtis Date Ultra Sound Latest Days Gestation 0 0 Menstrual History Last Menstrual Date Menses Monthly On Bcp Conception Prior Menses Frequency Hcg Plus Date Menarche Onset Age Delivery Information Delivery Date Delivery Type Labor Anesthesia Weeks Gestation Incision Type Labor Labor Length Hrs Delivered By Post Complications Tubal Sterilization Discharge Date Comments 8 Discharge Information Feeding Method Contraceptive Method Maternal HG B and HCT Levels
--- OUTSIDE RECORDS SUMMARY | 2024-12-28 23:27 | XMS_ITS | CONTINUITY OF CARE DOCUMENT ---
Author Name kelley benson Address Unknown Organization [facility] Address [address] [place] [address] Phone [phone] Care Team Providers Care Redrying Machine Operator Name Role Phone Sandra MARTINEZ, Ricardo Unavailable ROSS ANN MD Unavailable [phone] ROSS ANN MD Unavailable [phone] INSURANCE PROVIDERS Payer name Policy type / Coverage type Juan red constitution party ID AMARILYSSUZANNA MEDICAID (2) Medicaid [id number]
--- OUTSIDE RECORDS SUMMARY | 2024-12-28 23:27 | XMS_ITS | Patient Health Summary ---
Author Organization [facility] Address [address] [place] [address] Care Team Providers Care Media Services Director Name Role Phone Unavailable Primary Care Provider Unavailabl e Note from [facility],non-owned Affiliates and Associated Physician Practices is amultiple site organization consisting of ambulatory clinics and hospital sitesin [place], [place], [place] and [place]. This disclosure is being madepursuant to the Care Everywhere program and may not contain all information available regarding this patient. Last updated 18.[facility] Allergies No known active allergies Medications Be [...]
--- OUTSIDE RECORDS SUMMARY | 2024-12-28 23:27 | XMS_ITS | Data Portability ---
Author Organization [facility], Main Office Address [address] [place] [address] Care Team Providers Care Precipitate Washer Name Role Phone ROSS ANN Primary Care Provider ROSS ANN Referring Provider Assessment No assessment recorded. Plan of Treatment Reminders Order Date Submit Date Provider Last Modified By Organization Details Last Modified Time Details Appointments None recorded. Lab HbA1c (hemoglobi n A1c), blood 2022 023 [email or web address] [facility] (), [address] [place] [address], [phone], 11:30:44 lipid panel, serum [address] (), [address] [place] [address], [address], 11:30:44 insulin, serum [id number] [facility] (), [address] [place] [address], [address], 11:30:44 cortisol, am, serum 2022 023 [facility] (), [address] [place] [address], [address], 12:52:47 dexamethas one, serum 2022 023 [facility] [address] [place] [address], [address], 3 12:52:47 TSH + free T4, serum [address] (), [address] [place] [address], [address], 3 11:30:44 T3, free, serum or plasma [address] (), [address] [place] [address], [address], 3 11:30:44 thyroid peroxidase (tpo) Ab, serum [address] (), [address] [place] [address], [address], 3 11:30:44 iodine, serum [address] (), [address] [place] [address], [address], 3 11:30:44 CMP, serum or plasma [address] (), [address] [place] [address], [address], 3 11:30:44 Referral None recorded. Procedures None recorded. Surgeries None recorded. Imaging None recorded. Medication Orders dexamethas one 1 mg tablet 2022 023 [facility], [address] [facility], [place], [address], 11:30:37 Patient TargetsNo targets recorded. Patient InstructionsNo instructions recorded. Reason for Referral None Reported. Results Created Date Observation Date Name Description Value Unit Range Abnormal Flag Note LastModifiedBy Organization Detail LastModifiedTime 06/21/20 06/17/2022 polys omnog loraine , diagn ostic (PROC ) No observ ation record ed. [id number] [facility] [address] [place], [address], 01/19/2023 00:01:35 12/26/19 23 12/26/2022 XR, foot, 3 or more view No observ ation record ed. [id number] [facility] [address], [place], [address], 01/19/2023 00:01:35 Result Notes None recorded. Problems Name Problem SNOMED Code Status Onset Date Resolution Date Notes Provider Name and Address Organization Details Recorded Time Hammer toe 159167152 Active 2022 Not Available [facility] 3 23:59:49 Pain of toe of left foot 23711891143740 8 Active 2022 Not Available [facility] 3 23:59:49 Cyst of thyroid 87732975 Active 2022 Melanie Estrada MD [address], [address] , 28msec 3 11:27:55 Weight gain 8459049 Active 2022 Melanie Estrada MD [address] [facility], [place] [address], [place], [address] , 28msec 3 11:28:13 Impaired fasting glycemia 126677356 Active 2022 Melanie Estrada MD [address] [facility], [place] [address], [place], [address] , 28msec 3 11:29:13 Notes:Medical History: Bilat eral tinnitus Obesity with mild OSAHS, AHI = 4, 06/17/22 Paroxysmal atrial fibrillation Procedure History: T&A 1980 Problem Notes None recorded. Procedures Surgical History None recorded. Imaging Results Imaging Date Name Status LastModified by Organiz ation Details LastModified Time 12/26/2022 XR, foot, 3 or more view completed [id number] [facility] [address], [place], [address], 01/19/2023 00:01:35 06/17/2022 polysomnography , diagnostic (PROC) completed [id number] [facility] [address] [place], [address], 01/19/2023 00:01:35 Procedure Notes None recorded. Medical Equipment None Reported. Medications Name Sig Start Date Stop Date Status Note LastModified by Organization Details LastModified Time atovaquone 250 mg-proguani l 100 mg tablet TAKE 1 TABLET BY MOUTH ONCE DAILY WITH MEALS FOR 21 DAYS START 2 DAYS BEFORE YOUR TRIP, CONTINUE WHILE ABROAD AND STOP A WEEK AFTER YOUR RETURN active Not Available Not Available No t Available prednisone 20 mg tablet TAKE 1 & 1/2 (ONE & ONE-HALF) TABLETS BY MOUTH ONCE DAILY 02/09 completed Not Available Not Available Not Available penicillin V potassium 500 mg tablet TAKE 1 TABLET BY MOUTH TWICE DAILY 02/09 completed Not Available Not Available Not Available dexamethaso ne 1 mg tablet take dexa tablet at 10 pm night before 8 am cortisol 2022 active Not Available Not Available Not Avai lable albuterol sulfate HFA 90 mcg/actuati on aerosol inhaler INHALE 1 PUFF BY MOUTH 4 TIMES DAILY 02/09 completed Not Available Not Available Not Available Vitals Date Recorded Body mass index (BMI) Body mass index (BMI) Body mass index (BMI) Heart rate Heart rate Body height Body height Body height Oxygen saturation Oxygen saturation in Arterial blood by Pulse oximetry Oxygen saturation Oxygen saturation in Arterial blood by Pulse oximetry Oxygen saturation Oxygen saturation in Arterial blood by Pulse oximetry Pain severity - 0-10 verbal numeric rating [Score] - Reported Heart rate Heart rate Heart rate Respiratory rate Respiratory rate Respiratory rate Body temperature Body temperature Body weight Body weight Body weight Systolic blood pressure Diastolic blood pressure Systolic blood pressure Diastolic blood pressure Provider Name and Address Organization Details Last Updated DateTime 3 59.5 kg/m2 59.6 kg/m2 59.6 kg/m2 83 /min 75 /min 172.72 cm 172.72 cm 172.72 cm 97 % 97 % 98 % 98 % 98 % 98 % 0 83 /min 75 /min 79 /min 18 /min 15 /min 16 /min 98.5 [degF] 97.2 [degF] 726505. 05 g 250819. 21 g 190876. 21 g 106 mm[Hg] 70 mm[Hg] 110 mm[Hg] 78 mm[Hg] Not Available [facility] 3 23:59:00 Date Recorded Body height Body mass index (BMI) Body weight Body temperature Heart rate Systolic blood pressure Diastolic blood pressure Provider Name and Address Organization Details Last Updated DateTime 3 172.72 cm 58.5 kg/m2 635328. 34 g 97.5 [degF] 78 /min 115 mm[Hg] 82 mm[Hg] COLBY Henson [place] [facility] [place] [employer] 3 11:03:34 Social History Question Answer Notes LastModified by Organizat ion Details LastModified Time Tobacco Smoking Status Never Smoker Not Available [facility] 01/18/2023 23:58:04 Do You Have An Advance Directive? No [id number] Information not available 01/18/2023 What Is Your Level Of Alcohol Consumption? None MIGRATION.[id number] 7742 Information not available 01/18/2023 If You Are , What Was Your Level Of Alcohol Consumption Prior To ? None MIGRATION.214276 1671 Information not available 01/18/2023 What Is Your Level Of Caffeine Consumption? Moderate MIGRATION.466380 1695 Information not available 01/18/2023 In The 14 Days Before Symptom Onset, Have You Had Close Contact With A Laboratory-confir med COVID-19 While That Case Was Ill? No MIGRATION.690555 8105 Information not available 01/18/2023 In The 14 Days Before Symptom Onset, Have You Had Close Contact With A Person Who Is Under Investigation For COVID-19 While That Person Was Ill? No MIGRATION.873031 4564 Information not available 01/18/2023 What Type Of Diet Are You Following? REGULAR MIGRATION.699384 4945 Information not available 01/18/2023 What Is The Highest Grade Or Level Of School You Have Completed Or The Highest Degree You Have Received? AV27394-6 MIGRATION.680010 6840 Information not available 01/18/2023 Do You Have An Electrostatic Air Filter? No MIGRATION.636281 3172 Information not available 01/18/2023 What Is Your Occupation? [employer] MIGRATION.123184 0465 Information not available 01/18/2023 Are There Any Guns Present In Your Home? No MIGRATION.795132 1030 Information not available 01/18/2023 Do You Have A Humidifier? No MIGRATION.365322 1515 Information not available 01/18/2023 Where Do You Live? [facility] MIGRATION.347932 4350 Information not available 01/18/2023 Do You Have A Medical Power Of Top Cutter? No MIGRATION.912388 6356 Information not available 01/18/2023 Do You Have Moisture Problems In Your Home? No MIGRATION.416568 3194 Information not available 01/18/2023 What Was The Date Of Your Most Recent Tobacco Screening? 12/26/2022 MIGRATION.785055 1262 Information not available 01/18/2023 Do You Have Any Pets? Yes MIGRATION.255625 4256 Information not available 01/18/2023 What Is Your Relationship Status? MIGRATION.451598 3204 Information not available 01/18/2023 Do You Use Your Seat Belt Or Car Seat Routinely? Yes MIGRATION.959296 7296 Information not available 01/18/2023 Do You Have Smoke And Carbon Monoxide Detectors In Your Home? Yes MIGRATION.974484 4111 Information not available 01/18/2023 Are You Passively Exposed To Smoke? No MIGRATION.984679 6244 Information not available 01/18/2023 Do You Feel Stressed (tense, Restless, Nervous, Or Anxious, Or Unable To Sleep At Night)? HS41647-0 MIGRATION.568473 4132 Information not available 01/18/2023 Do You Use Any Illicit Or Recreational Drugs? No MIGRATION.159521 0453 Information not available 01/18/2023 Do You Use Sunscreen Routinely? No MIGRATION.912207 8632 Information not available 01/18/2023 Has Tobacco Cessation Counseling Been Provided? No MIGRATION.287264 7927 Information not available 01/18/2023 Have You Recently Traveled Abroad? No MIGRATION.005451 2691 Information not available 01/18/2023 Do You Have Any Dietary Restrictions? No MIGRATION.843726 0402 Information not available 01/18/2023 Do You Or Have You Ever Used Any Other Forms Of Tobacco Or Nicotine? No MIGRATION.182145 5394 Information not available 01/18/2023 Sex: Female Functional Status None recorded. Mental Status None recorded. Family History Relationship Description Onset Age of this Age Resolved Age Notes LastModified by Organization Details LastModified Time Mother Family history of breast cancer gene BRCA mutation 46 inflam penny breast cancer [id number] Not available 01/18/2023 23:58:40 Medical History Condition Response BLINDNESS N RHEUMATIC FEVER N MRSA N BACK INJECTIONS N INFECTIOUS DISEASE N LUNG DISEASE/DISORDER N HEART ARRHYTHMIA N ESRD N HISTORY OF DRUG ABUSE N INSOMNIA N RADIATION / CHEMOTHERAPY N COPD N HIGH CHOLESTEROL / HYPERLIPIDEMIA Y EYE PROBLEMS N HYPERTHYROIDISM N PVD N BLOOD DISEASES N SURGERY Y EDEMA N HYPOTHYROIDISM N SHINGLES N DEPRESSION (INCLUDING POST ) N HAVE YOU BEEN HOSPITALIZED OR SEEN IN [facility] IN THE PAST YEAR ? Y FAILED BACK SYNDROME N STROKE/TIA N THYROID DISEASE N BENIGN PROSTATIC HYPERPLASIA N POLYCYSTIC OVARIES N OBESITY Y EXCESSIVE PERSPIRATION N GERD/NAUSEA N ANEURYSM N OSTEOPOROSIS N Do you have Advance directive? N ARTHRITIS Y USE OF BLOOD THINNERS N NO SIGNIFICANT PAST MEDICAL HISTORY N SKIN PROBLEMS N DIABETES, TYPE N VON WILLIBRAND'S DISEASE N PARATHYROID DISEASE N BLOOD CLOTS N POST LAMINECTOMY SYNDROME N HEPATITIS / LIVER DISEASE N GOUT N ALZHEIMER'S DISEASE N HERPES N ARTERIAL INSUFFICIENCY N RETINOPATHY N SEIZURES/EPILEPSY N HEADACHES/MIGRAINES N GI PROBLEMS N Low Testosterone N DIZZINESS N KIDNEY DISEASE N HEART DISEASE/HEART PROBLEMS N AIDS/HIV N LIVER DISEASE N MALE HYPOGONADISM N NEUROPSYCHOLOGICAL N HYPERTENSION N CANCER: SPECIFY N TOURETTE'S N BLOOD TRANSFUSION N ANEMIA/BLOOD DISORDER Y ATRIAL FIBRILLATION Y AUTOIMMUNE DISEASE N TUBERCULOSIS N GLAUCOMA N Gynecological HistoryNo gynecological history recorded. Obstetrics History GPAL:G 0 P 0 0 0 0 Past Encounters Encounter ID Performer Location Encounter Start Date Encounter Closed Date Diagnosis/Indication Diagnosis SNOMED-CT Code Diagnosis ICD10 Code Diagnosis Note [id number] [facility] [address] 10/21/2021 00:00:00 10/21/2021 08:43:54 [id number] [facility] [address] [address] 06/28/2022 00:00:00 06/28/2022 10:50:16 [id number] [facility] [address] [place] [address] 12/26/2022 00:00:00 12/26/2022 16:32:33 [id number] Melanie Estrada MD [facility] [address] [place] [address] 02/09/2023 10:17:52 02/09/2023 11:37:30 Cyst of thyroid 01778068 E04.1 These are relatively small and noncompres sive in nature. Will send for serum iodine to screen for deficiency and send for full thyroid / autoimmune panel to screen for autoimmune thyroiditi s/hypothyr oidism. Weight gain 1392746 R63. 5 Will send for low dose dexa suppressio n testing to screen for hypercorti solic state. Impaired f asting glycemia 795707538 R73.01 Send for A1C, insulin and fasting glucose to screen further. Recommende d she incorporat e natural insulin reservations agent s such as pears, apples, cinnamon, odalys and sweet potatoes to help mobilize her endogenous insulin. Recommende d up to 150 minutes of moderate level activity/e xercise weekly. Spent up to 45 minutes preparing to see the patient (eg, review of tests), obtaining and/or reviewing separately obtained history, performing a medically appropriat e examinatio n and evaluation , counseling and educating the patient, ordering medication s, tests, along with documentin g clinical informatio n in the electronic health record, independen tly interpreti ng results and communicat ing results to the patient. RTC in 3-4 months. Patient was provided a handwritte n lab order which contains our fax number. If she chooses to go outside of the [facility] system to obtain labwork she was advised to provide our fax number and my informatio n to the lab she will be obtaining labwork from in order to have her labs properly forwarded over for me to review so there is no loss of follow up due to use of outside network. She was also advised to contact our clinic informing us that she has completed her labwork so we are aware we will need to reach out to the appropriat e laboratory to request her results be forwarded to us so I might have the ability to review and make further medical decision making in her case. She voiced understand ing. Thank you for this consultati on. Health Concerns Section Related Observation LastModified by Organization Detai ls LastModified Time None Recorded Concern Status LastModified by Organization Details LastModified Time None Recorded Advance Directives Directive N: Payers Encounter Date Sequence Insurance Name Policy Number Policy Mendoza Covered Member ID Mendoza Member ID Guarantor Name 02/09/2023 1 [facility] ON OR AFTER 05/20/21 (MEDICAID REPLACEMENT - HMO) Tish Devries [id number] Tish Devries Notes Date Note Type Note Provider Name and Address Organization Details Recorded Time 02/09/2023 text/html 43 yo female com es in as referral by courtesy of Dr. Ann for management and evaluation of thyroid cyst and obesity. labs from 11/10:TSH of 3.610 uIU/mlglucose 106 mg/dL thyroid u/s revealed tiny cysts and probable benign fatty lymph node of left cervical region She has no compression or pain in her thyroid. Her mother passed at 46 years from cancer. She is larger for her family size by over 200 pounds. All of her other family members are average size. She doesn't feel like she overeats. She does stick to regular one portion size. She has regular cycles. Melanie Estrada MD [address] [place] [address], [place] [address], [place], [address], [facility] [employer] [employer] 02/09/2023 12:14:04 OBGyn Episode No OBEpisode recorded.
--- OUTSIDE RECORDS SUMMARY | 2024-12-28 23:27 | XMS_ITS | Continuity of Care Document ---
Author Organization [facility] Address [address] [facility] [place] [address] [place] [address] Phone Care Team Providers Care Washer Machine Name Role Phone Eric Cotto MD Unavailable Unavailable Allergies, Adverse Reactions, Alerts Substance Reaction Status Criticality No Known Allergies Active No Inform ation Medications Medication Instructions Dosage Effective Dates (start - stop) Status Comments No Drug Therapy Prescribed Procedures Procedure Date PREV VISIT, EST, AGE 18-39 OFFICE/OUTPATIENT VISIT, EST PREV VISIT, NEW, AGE 18-39 OFFICE/OUTPATIENT VISIT, NEW Advance Directives Directive Yes / No Effective Date File Name No Information Encounters Encounter Description Practice Location Reason(s) For Visit Diagnoses Date Provider Providers Copied on Encounter [facility], [address] [place], [id number], tel:[phone] [facility] No Information 7 Yadiel Reyes. [address], [facility] [place], [id number] , [place]. tel:[phone] Referring Provider: Eric Cotto, [address] [facility] [place], [id number]. tel:[phone] PREV VISIT, EST, AGE 18-39 [facility], [address] [place] [place], [id number], tel:[phone] [facility] Physical (chief complaint) Encounter for general adult medical exam w abnormal findingsPediatric BMI greater than or equal to 95th percentile for ageFamily history of colonic polypsFamily history of malignant neoplasm of breast Sep- 7 [facility] [address] [facility] [place], [place], [id number] , [place]. tel:[phone] Referring Provider: Eric Cotto [address], [place], [place], [id number]. tel:[phone] PREV VISIT, NEW, AGE 18-39 [facility], [address], [place], [place], [id number], [place] [phone] [facility] Physical (chief complaint) Encounter for general adult medical exam w abnormal findingsParesthesia of skinHeadacheElevate d ESR Sep- 6 Yadiel Reyes. [address], [facility], [place], [place], [id number] , [place]. [phone] Family History Family Member Type Diagnosis Age At Onset Mother Problem (finding) breast and col on CA at age 40s (Cause Of ) 40 Father Problem (finding) Sister Problem (finding) Alive and well Father Problem (finding) Unknown Payers Payer name Insurance type Covered green party ID Authoriza tion(s) No Information Social History Type Description Quantity Date Captured Comments Alcohol Use Details Unknown Caffeine Use Details Unknown Tobacco Use Status No Information Smoking Status No Information Sex Female Chief Complaint And Reason For Visit No Information Plan Of Treatment Date Type Action Status Referral Ordered: MAMMOGRAM, ONE BREAST L ordered Referral Ordered: MAMMOGRAM, SCREENING ordered Referral Ordered: MRI BRAIN W/O & W/DYE ordered Referral Ordered: DOPPLER COLOR FLOW ADD-ON ordered Referral Ordered: COLONOSCOPY AND BIOPSY ordered Referral Ordered: US CAROTID ordered History Of Present Illness Encounter Date Complaint History Of Prese nt Illness Physical Pt needs annual physical. Pt is obese. Pt had benign lab last year. Pt denies any active issue Pt has difficulty losing weight. Pt denies any other complaints Physical Pt needs annual physical. Pt is morbidly obese. Pt c/o left foot numnbess and generalized dizziness and some vague headache and presyncope for about 2-3 months. Pt denies any chest pain or SOB. Pt went to Er and had normal head CT recently. Pt did have very high ESR Pt denies any vision problem. Pt c/o feeling sharp headache from back of neck radiating to rest of brain about twice per week. Pt denies any other complaints. Pt denies any motor weakness or any speech problem. Pt also had brief episodes of left facial numnbess several weeks ago but resolved after several hours. Pt denies any joint pain. Pt denies any chest pain Medications Administered Medication Instructions Dosage Effective Dates (start - stop) Status Comments No Drug Therapy Prescribed Instructions Date Instruction Additional Infor mation Prescribed Activity and Exercise Education Related to Dietary Surveillance and Counseling Prescribed Diet Educ ation/Lifestyle Education Regarding Diet Related to Dietary Surveillance and Counseling Increase physical activity Relat ed to Encounter for general adult medical exam w abnormal findings Weight management Related to Enc ounter for general adult medical exam w abnormal findings Prescribed Activity and Exercise Education Related to Dietary Surveillance and Counseling Prescribed Diet Educ ation/Lifestyle Education Regarding Diet Related to Dietary Surveillance and Counseling Assessments Type Assessment Date No Information
--- OUTSIDE RECORDS SUMMARY | 2024-12-28 23:27 | XMS_ITS | Clinical Summary ---
Author Organization [facility] Address [address] [place] [address] Care Team Providers Care Brine Tank Tender Name Role Phone Unavailable Primary Care Provider Unavailabl e Source Comments [facility],non-owned Affiliates and Associated Physician Practices is amultiple site organization consisting of ambulatory clinics and hospital sitesin [place], [place], [place] and [place]. This disclosure is being madepursuant to the Care Everywhere program and may not contain all information available regarding this patient. Last updated 18.[employer] Allergies No known active allergies Medications Be [...] Orientation Not on file Plan of Treatment Health Maintenance Due Date Last Done Comments COLOGUARD (AGES 45-75) - COL ON CA SCREENING 1978 COLON MONITORING 1978 COLONOSCOPY - COLON CA SCREENING 1978 CT COLONOGRAPHY - COLON CA SCREENING 1978 Colorectal Cancer Screening 1978 FIT - COLON CA SCREENING 1978 FLEX SIG - COLON CA SCREENING 1978 LIPID TESTING 1978 MAMMOGRAM 1978 PAP SMEAR 1978 HIV SCREENING 1993 HEPATITIS C SCREENING 01/26/1996 DTAP/TDAP/TD VACCINES (1 - Tdap) 1997 HEPATITIS B VACCINE (1 of 3 - 19+ 3-dose series) 1997 COVID-19 VACCINE (1 - 2023-2 5 season) 2024 INFLUENZA VACCINE (#1) 2024 DEPRESSION SCREENING 11/20/2024 ZOSTER VACCINE (1 of 2) 01/31/2028 HIB VACCINE Aged Out No longer eligi ble based on patient's age to complete this topic HPV VACCINE Aged Out No longer eligi ble based on patient's age to complete this topic MENINGOCOCCAL (Group B) VACCINE Aged Out No longer eligible based on patient's age to complete this topic MENINGOCOCCAL VACCINE Aged Out No tristen manuelito eligible based on patient's age to complete this topic PNEUMOCOCCAL VACCINE Aged Out No long er eligible based on patient's age to complete this topic
--- NOTE | 2024-12-28 23:40 | ED.CHESTPAIN ---
HPI - Chest Pain General Chief Complaint: Chest Pain <RAE Monroy Last Filed: 12/29/24 02:17> Stated Complaint: CHEST PAIN/ HX AFIB <RAE Monroy Last Filed: 12/29/24 02:17> Time Seen by Provider: 12/28/24 23:39 <RAE Monroy Last Filed: 12/29/24 02:17> Source: patient <RAE Monroy Last Filed: 12/29/24 02:17> Mode of arrival: ambulatory <RAE Monroy Filed: 12/29/24 02:17> Limitations: no limitations <RAE Monroy Filed: 12/29/24 02:17> History of Present Illness HPI narrative: Patient is a 44-year-old female who presents the ED with report of chest pain. Patient reports approximately 1.5 hours prior to arrival, patient began having pain throughout her midsternal chest. Radiated through to her L shoulder. She also reported increased shortness of breath and feeling as though her heart was out of rhythm. She then prompted here for further evaluation. She does note history of previous episode of AFib in 2019. She was on blood thinners at that time as well as metoprolol. She states she did not like the way the metoprolol made her feel so she took herself off of this. She states her primary care doctor was aware of this at that time. She is not currently on any medications. Denies having any other episodes of AFib that she is aware of. Was found to be in AFib with RVR upon arrival to the ED today. Patient denies any recent cough or cold symptoms, fevers, pain or swelling in her lower extremities. Does note that her daughter tested positive for covid19 2 weeks ago. <RAE Monroy Last Filed: 12/29/24 02:17> Related Data Home Medications: Home Medications ?Medication ?Instructions ?Recorded ?Confirmed ?Last Taken ?Type No Home Medications 12/29/24 12/29/24 Unknown History <RAE Monroy Filed: 12/29/24 02:17> Allergies/Adverse Reactions: Allergies Allergy/AdvReac Type Severity Reaction Status Date / Time No Known Drug Allergies Allergy Mild Unknown Verified 12/29/24 02:46 <Aleisha Zhang PA-C - Last Filed: 12/29/24 02:17> Review of Systems Review of Systems: All systems reviewed & are unremarkable except as noted in HPI. <Aleisha Zhang PA-C - Last Filed: 12/29/24 02:17> All systems reviewed & are unremarkable except as noted in HPI and below <Aleisha Zhang PA-C - Last Filed: 12/29/24 02:17> [facility] Past Medical History Medical History: Medical History (Updated 12/29/24 @ 02:17 by Aleisha Zhang PA-C) Paroxysmal A-fib Right calf pain No pertinent past medical history <Aleisha Zhang PA-C - Last Filed: 12/29/24 02:17> Surgical History Surgical History: Surgical History H/O left knee surgery <Aleisha Zhang PA-C - Last Filed: 12/29/24 02:17> Family History Family History: Family History (Updated 12/29/24 @ 02:37 by Jessica Chavez RN) Mother Breast cancer Grandparent Cerebrovascular accident Congestive heart failure Acute myocardial infarction <Aleisha Zhang PA-C - Last Filed: 12/29/24 02:17> Social History Social History: Social History Smoking status: Never smoker Alcohol intake: never Substance use: never Do You Feel Safe in your Home?: Yes Lack of Transportation: No Lack of Food: Never True Current Housing: I Have Housing Concerned About Future Housing: No Difficulty Paying Gas/Electric Bills: No Difficulty Paying for Meds: No Currently Unemployed: No Education: High School Diploma/GED Difficulty w/ Childcare or Family Care: No Gender identity (if verbalized by the patient): Female Spiritual care concerns: No <Aleisha Zhang PA-C - Last Filed: 12/29/24 02:17> Exam Narrative: GENERAL: Well appearing, morbidly obese with BMI of 63.5, non-toxic, in no acute distress. HEAD: Normocephalic, atraumatic. RESPIRATORY: Airway patent, respirations nonlabored. Clear to auscultation bilaterally, no rales, rhonchi, wheezing. CARDIOVASCULAR: Tachycardic with irregular rhythm without murmurs, rubs, or gallops. Peripheral pulses intact. MUSCULOSKELETAL: Moves all extremities. No gross deformities. No peripheral edema. No calf tenderness. SKIN: Warm, dry, normal color. NEURO: A&O X3. Speech clear. Cranial nerves II-XII grossly intact. Steady gait. No ataxic movements. PSYCHIATRIC: Appropriate mood and affect. Normal interaction. <Aleisha Zhang PA-C - Last Filed: 12/29/24 02:17> Course SEARCH MANAGER/PA Physician Supervision PA discussed patient with me. Had received 10mg diltiazem. We discussed the 0.25mg/kg followed by 0.35mg/kg dose (with maximum doses) followed by either oral load conversion or placing on drip. Patient was ultimately placed on a drip and rate appears more stable after this. Will be admitted. Therefore, I was available for consultation while patient was in the emergency department but did not physically examine her and was not otherwise directly involved with her care <Ashley Erwin MD - Last Filed: 12/29/24 18:49> Vital Signs Vital signs: Vital Signs Temperature 97.6 F 12/28/24 23:27 Pulse Rate 150 H 12/28/24 23:27 Respiratory Rate 22 H 12/28/24 23:27 Blood Pressure 145/90 H 12/28/24 23:27 Pulse Oximetry 100 12/28/24 23:27 Oxygen Delivery Room Air 12/28/24 23:27 Temperature 98.7 F 12/29/24 14:40 Pulse Rate 81 12/29/24 14:40 Respiratory Rate 12 12/29/24 14:40 Blood Pressure 111/62 12/29/24 14:40 Pulse Oximetry 99 12/29/24 14:40 Oxygen Delivery Room Air 12/28/24 23:42 <Aleisha Zhang PA-C - Last Filed: 12/29/24 02:17> Vital Signs Temperature 97.6 F 12/28/24 23:27 Pulse Rate 150 H 12/28/24 23:27 Respiratory Rate 22 H 12/28/24 23:27 Blood Pressure 145/90 H 12/28/24 23:27 Pulse Oximetry 100 12/28/24 23:27 Oxygen Delivery Room Air 12/28/24 23:27 Temperature 98.7 F 12/29/24 14:40 Pulse Rate 81 12/29/24 14:40 Respiratory Rate 12 12/29/24 14:40 Blood Pressure 111/62 12/29/24 14:40 Pulse Oximetry 99 12/29/24 14:40 Oxygen Delivery Room Air 12/28/24 23:42 <Ashley Erwin MD - Last Filed: 12/29/24 18:49> MDM - Chest Pain MDM Narrative Medical decision making narrative: Patient presented to ED with chest pain, shortness breath, palpitations. Patient noted to be tachycardic upon arrival into the 150s. EKG performed in triage showing AFib with RVR. No acute ST changes. No STEMI. Patient does have remote history of AFib. Is not currently on any anticoagulation or rate-controlling medications for this at this time. Blood pressure is stable. Given 5 mg dose of IV Lopressor without much change in heart rate. More consistently in the 120s-130s. Will attempt cardizem. Given 10mg IVP of Cardizem with some transient improvement of HR, will try additional 15mg IVP dose given patient's weight. Again had some transient response to this. Will start cardizem gtt and admit for further eval. Cbc is unremarkable. CMP fairly unremarkable. Bicarb 21. Stable kidney function. Blood glucose mildly elevated to 149. Magnesium within normal range. TSH is mildly elevated to 4.8. T4 pending. Baseline troponin 0.013. Will continue to trend. BNP 286. CXR interpreted myself clear. No significant pulm vascular congestion. D-dimer WNL. Viral swabs negative. Discussed case with Dr. Forde, hospitalist, accepted patient for admission. Advised to give po dilt 30mg qid. Will consult for Cardiology. Chads Vasc score calculated =2 (points for female, HTN). A1c in prediabetic range. No hx of previous CVA, VT, CHF. Patient < 65. <Aleisha Zhang PA-C - Last Filed: 12/29/24 02:17> Medical Records Data Attestation: I reviewed the patient's medical records. <Aleisha Zhang PA-C - Last Filed: 12/29/24 02:17> Lab Data Attestation: I reviewed the patient's lab results. <Aleisha Zhang PA-C - Last Filed: 12/29/24 02:17> Result diagrams: 12/28/24 23:52 12/28/24 23:52 <Aleisha Zhang PA-C - Last Filed: 12/29/24 02:17> Labs: Lab Results 12/28/24 12/28/24 12/28/24 Range/Units 01:04 23:50 23:52 WBC 8.3 (4.5-10.0) K/mm3 RBC 4.57 (4.2-5.4) M/mm3 Hgb 12.4 (12.0-15.0) g/dL Hct 38.7 (37.0-47.0) % MCV 84.7 (80-100) fl MCH 27.1 (26-34) pg MCHC 32.0 (32-36) g/dl RDW 13.9 (11.5-14.5) % Plt Count 187 (150-375) k/mm3 MPV 12.1 H (7.4-10.4) fl Immature Gran % (Auto) 0.1 (0-0.5) % Neut % (Auto) 67.5 (45.5-73.1) % Lymph % (Auto) 23.2 (18.3-44.2) % Lyon % (Auto) 6.7 (2.6-8.5) % Eos % (Auto) 1.9 (0-4.4) % Baso % (Auto) 0.6 (0.2-1.2) % Lymph # (Auto) 1.93 (0.9-3.2) K/mm3 Lyon # (Auto) 0.6 (0.1-0.6) K/mm3 Eos # (Auto) 0.2 (0-0.3) K/mm3 Baso # (Auto) 0.1 (0.0-0.1) K/mm3 Abs Immat Gran (auto) 0.01 (0.00-0.031) K/mm3 Absolute Neuts (auto) 5.6 (1.3-6.7) K/mm3 Absolute Nucleated RBC 0.000 (0.0-0.012) K/mm3 Nucleated RBC % 0.0 (0.0-0.2) % PT 12.8 (11.1-14.7) Seconds INR 0.9 APTT 27.2 (22.3-36.8) Seconds D-Dimer 0.35 (<0.48) ug/mL Sodium 138 (137-145) mmol/L Potassium 4.4 (3.4-5.0) mmol/L Chloride 106 (98-107) mmol/L Carbon Dioxide 21 L (22-30) mmol/L Anion Gap 11 (4-12) mmol/L BUN 19 H (7-17) mg/dL Creatinine 0.79 (0.7-1.0) mg/dL Estim Creat Clear Calc 139 ml/min Estimated GFR > 60 (59 - ) Glucose 148 H (65-110) mg/dL Hemoglobin A1c 5.9 H (<5.7) % Calcium 9.3 (8.4-10.2) mg/dL Magnesium 1.9 (1.6-2.3) mg/dL Total Bilirubin 0.4 (0.2-1.3) mg/dL AST 20 (14-36) U/L ALT 18 (6-35) U/L Alkaline Phosphatase 79 (38-126) U/L Troponin I 0.013 (0.000-0.034) ng/mL NT-Pro-B Natriuret Pep 286 H (19.9-100) pg/mL Total Protein 7.0 (6.3-8.2) g/dL Albumin 3.9 (3.5-5.1) g/dL Lipase 81 (23-300) U/L TSH 4.800 H (0.465-4.680) uIU/mL Free T4 1.03 (0.78-2.19) ng/dL Influenza A (RT-PCR) Negative (Negative) Influenza B (RT-PCR) Negative (Negative) RSV (RT-PCR) Negative (Negative) SARS-CoV-2 RNA (RT-PCR) Negative (Negative) <Aleisha Zhang PA-C - Last Filed: 12/29/24 02:17> Lab Results 12/28/24 12/28/24 12/28/24 Range/Units 01:04 23:50 23:52 WBC 8.3 (4.5-10.0) K/mm3 RBC 4.57 (4.2-5.4) M/mm3 Hgb 12.4 (12.0-15.0) g/dL Hct 38.7 (37.0-47.0) % MCV 84.7 (80-100) fl MCH 27.1 (26-34) pg MCHC 32.0 (32-36) g/dl RDW 13.9 (11.5-14.5) % Plt Count 187 (150-375) k/mm3 MPV 12.1 H (7.4-10.4) fl Immature Gran % (Auto) 0.1 (0-0.5) % Neut % (Auto) 67.5 (45.5-73.1) % Lymph % (Auto) 23.2 (18.3-44.2) % Lyon % (Auto) 6.7 (2.6-8.5) % Eos % (Auto) 1.9 (0-4.4) % Baso % (Auto) 0.6 (0.2-1.2) % Lymph # (Auto) 1.93 (0.9-3.2) K/mm3 Lyon # (Auto) 0.6 (0.1-0.6) K/mm3 Eos # (Auto) 0.2 (0-0.3) K/mm3 Baso # (Auto) 0.1 (0.0-0.1) K/mm3 Abs Immat Gran (auto) 0.01 (0.00-0.031) K/mm3 Absolute Neuts (auto) 5.6 (1.3-6.7) K/mm3 Absolute Nucleated RBC 0.000 (0.0-0.012) K/mm3 Nucleated RBC % 0.0 (0.0-0.2) % PT 12.8 (11.1-14.7) Seconds INR 0.9 APTT 27.2 (22.3-36.8) Seconds D-Dimer 0.35 (<0.48) ug/mL Sodium 138 (137-145) mmol/L Potassium 4.4 (3.4-5.0) mmol/L Chloride 106 (98-107) mmol/L Carbon Dioxide 21 L (22-30) mmol/L Anion Gap 11 (4-12) mmol/L BUN 19 H (7-17) mg/dL Creatinine 0.79 (0.7-1.0) mg/dL Estim Creat Clear Calc 139 ml/min Estimated GFR > 60 (59 - ) Glucose 148 H (65-110) mg/dL Hemoglobin A1c 5.9 H (<5.7) % Calcium 9.3 (8.4-10.2) mg/dL Magnesium 1.9 (1.6-2.3) mg/dL Total Bilirubin 0.4 (0.2-1.3) mg/dL AST 20 (14-36) U/L ALT 18 (6-35) U/L Alkaline Phosphatase 79 (38-126) U/L Troponin I 0.013 (0.000-0.034) ng/mL NT-Pro-B Natriuret Pep 286 H (19.9-100) pg/mL Total Protein 7.0 (6.3-8.2) g/dL Albumin 3.9 (3.5-5.1) g/dL Lipase 81 (23-300) U/L TSH 4.800 H (0.465-4.680) uIU/mL Free T4 1.03 (0.78-2.19) ng/dL Influenza A (RT-PCR) Negative (Negative) Influenza B (RT-PCR) Negative (Negative) RSV (RT-PCR) Negative (Negative) SARS-CoV-2 RNA (RT-PCR) Negative (Negative) <Ashley Erwin MD - Last Filed: 12/29/24 18:49> Imaging Data Attestation: I personally reviewed and interpreted this imaging study as follows: <Aleisha Zhang PA-C - Last Filed: 12/29/24 02:17> My impression: CXR: No acute cardiopulmonary abnormality. <Aleisha Zhang PA-C - Last Filed: 12/29/24 02:17> ECG Data EKG #1: Attestation: I personally reviewed and interpreted this ECG as follows: <RAE Monroy Last Filed: 12/29/24 02:17> ECG completion date: 12/28/24 <RAE Monroy Last Filed: 12/29/24 02:17> ECG completion time: 23:34 <RAE Monroy Last Filed: 12/29/24 02:17> EKG Interpretation: tachycardia (145), atrial fibrillation (RVR) and non-specific ST changes <RAE Monroy Last Filed: 12/29/24 02:17> Discharge Plan Discharge Clinical Impression: Atrial fibrillation with rapid ventricular response, Elevated TSH, Prediabetes <Aleisha Zhang PA-C - Last Filed: 12/29/24 02:17> Patient Disposition: Still a Patient <Aleisha Zhang PA-C - Last Filed: 12/29/24 02:17> Condition: Stable <RAE Monroy Last Filed: 12/29/24 02:17> Quality HEART score for chest pain patients History: highly suspicioius <RAE Monroy Last Filed: 12/29/24 02:17> ECG: non specific repolarization disturbance/LBTB/PM <RAE Monroy Last Filed: 12/29/24 02:17> Age: > 45 and < 65 years <RAE Monroy Last Filed: 12/29/24 02:17> Risk factors: 1 or 2 risk factors <RAE Monroy Last Filed: 12/29/24 02:17> Troponin: < or = to 1x normal limit <RAE Monroy Last Filed: 12/29/24 02:17> Heart score: 5 <RAE Monroy Last Filed: 12/29/24 02:17> 5 <Ashley Erwin MD - Last Filed: 12/29/24 18:49>
[2024-12-28 23:42] VITALS: PULSE 161
[2024-12-28 23:46] VITALS: BP 103/44; PULSE 135; RESP 18; O2SAT 97
[2024-12-28 23:47] VITALS: BP 103/44; PULSE 131; RESP 23; O2SAT 100
[2024-12-28 23:49] VITALS: BP 143/91; PULSE 130; RESP 19
[2024-12-28 23:58] LABS: Basophils Absolute Auto 0.1 K/mm3 (0.0-0.1); Basophils Percent Auto 0.6 % (0.2-1.2); Eosinophils Absolute Auto 0.2 K/mm3 (0-0.3); Eosinophils Percent Auto 1.9 % (0-4.4); Hematocrit 38.7 % (37.0-47.0); Hemoglobin 12.4 g/dL (12.0-15.0); Immature Granulocyte Absolute 0.01 K/mm3 (0.00-0.031); Immature Granulocyte Percent A 0.1 % (0-0.5); Lymphocytes Absolute Auto 1.93 K/mm3 (0.9-3.2); Lymphocytes Percent Auto 23.2 % (18.3-44.2); Mean Corpuscular Hemoglobin 27.1 pg (26-34); Mean Corpuscular Volume 84.7 fl (80-100); Mean Platelet Volume 12.1 fl (7.4-10.4); Monocytes Absolute Auto 0.6 K/mm3 (0.1-0.6); Monocytes Percent Auto 6.7 % (2.6-8.5); Neutrophils Absolute Auto 5.6 K/mm3 (1.3-6.7); Neutrophils Percent Auto 67.5 % (45.5-73.1); Platelet Count Result 187 k/mm3 (150-375); Red Blood Count 4.57 M/mm3 (4.2-5.4); Red Cell Distribution Width 13.9 % (11.5-14.5); White Blood Count 8.3 K/mm3 (4.5-10.0)
[2024-12-28] MEDS: SODIUM CHLORIDE 0.9% IV 1,000 ML 999 ML IV CONT (23:59)
[2024-12-29] VITALS (30 sets, daily range): BP systolic 102–152; BP diastolic 59–102; PULSE 70–139; RESP 12–20; TEMP 36.8–37.1; O2SAT 95–100; BMI 63.5
[2024-12-29] MEDS: ASPIRIN 81 MG CHEWABLE TABLET 324 MG PO
[2024-12-29] MEDS: METOPROLOL TARTRATE INJ 5 MG/5 ML VIAL IV PUSH
--- OUTSIDE RECORDS SUMMARY | 2024-12-29 00:10 | XMS_ITS | Clinical Summary ---
Author Organization [facility] Address [address] [place] [address] Care Team Providers Care Data Management Manager Name Role Phone No, Physician Primary Care Provider [phone] Allergies No known active allergies Medications No [...] on file Legal Sex Female 7:50 PM CHILDREN'S INSTITUTION ATTENDANT Gender Identity Not on file Sexual Orientation Not on file Obstetrics History Last Filed Vital Signs Vital Sign Reading Time Taken Comments Blood Pressure 134/94 12/22/2023 4:15 PM [facility]ILDREN[facility]S [facility]STIT[facility] ATTENDANT Pulse 74 12/22/2023 4:15 PM [facility]ILDREN[facility]S [facility]STIT[facility] ATTENDANT Temperature 36.6 C (97.9 F) 12/22/2023 1:00 PM CHILDREN'S INSTIT[facility] ATTENDANT Respiratory Rate 20 12/22/2023 4:15 PM [facility]ILDREN'S INSTIT[facility] ATTENDANT Oxygen Saturation 99% 12/22/2023 1:00 PM CHILDREN'S INSTITUTION ATTENDANT Inhaled Oxygen Concentration - - Weight 174.6 kg (385 lb) 12/22/2023 1:00 PM [facility]ILDREN'S INSTIT[facility] ATTENDANT Height 172.7 cm (5' 8 ) 12/22/2023 1:00 PM [facility]ILDREN'S INSTIT[facility] ATTENDANT Body Mass Index 58.54 12/22/2023 1:00 PM [facility]ILDREN'S INSTIT[facility] ATTENDANT Plan of Treatment Health Maintenance Due Date [...] Read Routine (OP Routine) 12/26/2022 10:06 AM [facility]ILDREN[facility]S [facility] ATTENDANT Swelling of breast from Last 3 Months or Most Recently Relevant to Health Maintenance Results * Diagnostic Mammogram Bilateral W Ben (12/26/2022 10:06 AM [facility]ILDREN[facility]S [facility] ATTENDANT) Anatomical Region Laterality Modality Breast Bilateral Mammography 12/26/2022 10:0 9 AM [facility]ILDREN[facility]S [facility] ATTENDANT Impressions 12/26/2022 12:07 PM [facility]ILDREN[facility]S INSTIT[facility] ATTENDANT 1. A 0.7 cm mass in the [...] has been scheduled to return to the [facility] for biopsy on 01/09/2023 at 12:30 PM. This facility will contact the referring clinician's office for an order. Dictated by: Cristiane Short MD The radiology attending physician has personally reviewed this study, and had reviewed and/or edited this written report and agrees with it. Electronically signed by: VIOLET MARIN MD Narrative 12/26/2022 12:07 PM [facility]DR[facility] ATTENDANT EXAMINATION: BILATERAL DIGITAL DIAGNOSTIC MAMMOGRAM INCLUDING CAD [...] BOTH breasts was performed by a trained project controls scheduler and by Dr. Marin. BREAST PARENCHYMAL COMPOSITION: [...] BOTH breasts was performed by a trained project controls scheduler and by Dr. Marin. BREAST PARENCHYMAL COMPOSITION: [...] been scheduled to return to the [facility] for biopsy on 01/09/2023 at [...] Most Recently Relevant to Health Maintenance [place] [address] [address] [facility] [place] [address] [address] [facility] Advance Directives For more information, please contact: [phone] * Full Code (Latest Code Status on File) Date Activated Date Inactivated Comments 01/12/2020 6:28 PM 01/13/2020 8:23 PM Care Teams Data Management Manager Relationship Specialty Start Date End Date No, Physician PCP - General 08/29/17
--- OUTSIDE RECORDS SUMMARY | 2024-12-29 00:10 | XMS_ITS | Continuity of Care Document ---
Author Organization [facility] Address [address] [facility] [place] [address] [place] [address] Phone Care Team Providers Care Cert Pharmacy Tech Name Role Phone Eric Cotto MD Unavailable [...] Diagnoses Date Provider Providers Copied on Encounter [facility], [address] [employer] [place], [place], [id number], tel:[phone] [facility] No Information 7 Yadiel Reyes. [address], [facility] [place], [place], [id number] , [place]. tel:[phone] Referring Provider: Eric Cotto, [address] [facility] [place], [place], [id number]. tel:[phone] PREV VISIT, EST, AGE 18-39 [facility], [address] [employer] [employer] [place], [place], [id number], tel:[phone] [facility] Physical (chief complaint) Encounter for general adult medical exam w abnormal findingsPediatric BMI greater than or equal to 95th percentile for ageFamily history of colonic polypsFamily history of malignant neoplasm of breast Sep- 7 Y[facility]iel Reyes. [address] [facility] [address] [place], [place], [id number] , [place]. tel:[phone] Referring Provider: Eric Cotto [address], [place], [place], [id number]. tel:[phone] PREV VISIT, NEW, AGE 18-39 [facility], [address], [place], [place], [id number], [place] [phone] [facility] Physical (chief complaint) Encounter for general adult medical exam w abnormal findingsParesthesia of skinHeadacheElevate d ESR Sep- 6 Yadiel Reyes. [address], [facility] [address], [place], [place], [id number] , [place]. tel:[phone] Family History Family Member Type Diagnosis Age At Onset Mother Problem (finding) breast and col on CA at age 40s (Cause Of ) 40 Father Problem (finding) Sister Problem (finding) Alive and well Father Problem (finding) Unknown Payers Payer name Insurance type Covered democrat ID Authoriza tion(s) No Information Social History [...]
--- OUTSIDE RECORDS SUMMARY | 2024-12-29 00:10 | XMS_ITS | Encounter Summary ---
Author Organization [facility] Address [address] [place] [address] Care Team Providers Care Earth Burner Name Role Phone No, Physician Primary Care Provider [phone] Encounter Details Date Type Department Care Team (Late st Contact Info) Description 06/02/2020 Telephone [facility] [address] [place] [address] Outpatient Health 4th Floor [address] [place] [address] Elke Cisneros RN Social History Tobacco Use Types Packs/Day Years Used Date Smoking Tobacco: Never Smokeless Tobacco: Never Alcohol Use Standard Drinks/Week Comments Not Currently 0 (1 standard drink = 0.6 oz pur e alcohol) Comments Unknown Sex and Gender Information Value Date Recorded Sex Assigned at Not on file Legal Sex Female 7:50 PM FISH ROE TECHNICIAN Gender Identity Not on file Sexual Orientation [...] documented as of this encounter Care Teams Earth Burner Relationship Specialty Start Date End Date No, Physician PCP - General 08/29/17 documented as of this encounter
--- OUTSIDE RECORDS SUMMARY | 2024-12-29 00:10 | XMS_ITS | Encounter Summary ---
Author Organization [facility] Healthcare Address [address] [place] [address] Care Team Providers Care Lanolin Plant Operator Name Role Phone No, Physician Primary Care Provider Reason for Visit * Diagnostic Imaging (Routine) - Closed Specialty Diagnoses / Procedures Referred By Contac t Referred To Contact Procedures Breast Imaging Screening Outside Reference Referral, Self Referral ID Status Reason Start Date Expiration Date Visits Re quested Visits Authorized [id number] Closed 12/26/2022 01/25/2024 1 1 Encounter Details Date Type Department Care Team (Late st Contact Info) Description 06/19/2020 Hospital Encounter [facility] [address] [place] [id number] Social History Tobacco Use Types Packs/Day Years [...] on file Legal Sex Female 7:50 PM TELECOMMUNICATIONS OFFICER Gender Identity Not on file Sexual Orientation [...] CDT) Impressions [facility] - 12/26/2022 8:16 AM TELECOMMUNICATIONS OFFICER These images are for Reference purposes only and have not been reviewed by [facility] Radiology. There will be no report generated by a [facility] Radiologist. Narrative [facility] - 12/26/2022 8:16 AM TELECOMMUNICATIONS OFFICER EXAMINATION: Images For Reference Purposes Only us Self Referral IMG MAMMO PROCEDURES Final Resul t [facility] documented in this encounter Visit Diagnoses Not on filedocumented in this encounter Additional Health Concerns Infection Onset Date Last Indicated Resolved Time COVID: Suspected 05/08/2021 05/08/2021 05/08/2021 6:23 AM CDT COVID19 05/08/2021 05/08/2021 05/27/2021 3:05 AM CDT documented as of this encounter Care Teams Lanolin Plant Operator Relationship Specialty Start Date End Date No, Physician PCP - General 08/29/17 documented as of this encounter
--- OUTSIDE RECORDS SUMMARY | 2024-12-29 00:10 | XMS_ITS | Referral Summary ---
Author Organization [facility] al Address [address] [place] [address] Care Team Providers Care Steel Fabricator Name Role Phone No, Physician Primary Care Provider [phone] Allergies No known active allergies Medications No [...] on file Legal Sex Female 7:50 PM CCU NURSE Gender Identity Not on file Sexual Orientation Not on file Last Filed Vital Signs Vital Sign Reading Time Taken Comments Blood Pressure 134/94 12/22/2023 4:15 PM CCU NURSE Pulse 74 12/22/2023 4:15 PM CCU NURSE Temperature 36.6 C (97.9 F) 12/22/2023 1:00 PM CCU NURSE Respiratory Rate 20 12/22/2023 4:15 PM CCU NURSE Oxygen Saturation 99% 12/22/2023 1:00 PM CCU NURSE Inhaled Oxygen Concentration - - Weight 174.6 kg (385 lb) 12/22/2023 1:00 PM CCU NURSE Height 172.7 cm (5' 8 ) 12/22/2023 1:00 PM CCU NURSE Body Mass Index 58.54 12/22/2023 1:00 PM CCU NURSE Plan of Treatment Not on file Procedures Procedure Name Priority Date/Time Associated Diagnosis Comments DIAGNOSTIC MAMMOGRAM BILATERAL W BEN Schedule Routine, Read Routine (OP Routine) 12/26/2022 10:06 AM CCU NURSE Swelling of breast from Last 3 Months or Most Recently Relevant to Health Maintenance Results * Diagnostic Mammogram Bilateral W Ben (12/26/2022 10:06 AM CCU NURSE) Anatomical Region Laterality Modality Breast Bilateral Mammography 12/26/2022 10:0 9 AM CCU NURSE Impressions 12/26/2022 12:07 PM CCU NURSE 1. A 0.7 cm mass in the [...] has been scheduled to return to the [facility] for biopsy on 01/09/2023 at 12:30 PM. This facility will contact the referring clinician's office for an order. Dictated by: Cristiane Short MD The radiology attending physician has personally reviewed this study, and had reviewed and/or edited this written report and agrees with it. Electronically signed by: VIOLET MARIN MD Narrative 12/26/2022 12:07 PM CCU NURSE EXAMINATION: BILATERAL DIGITAL DIAGNOSTIC MAMMOGRAM INCLUDING CAD [...] BOTH breasts was performed by a trained baseboard heating installer and by Dr. Marin. BREAST PARENCHYMAL COMPOSITION: [...] BOTH breasts was performed by a trained baseboard heating installer and by Dr. Marin. BREAST PARENCHYMAL COMPOSITION: [...] has been scheduled to return to the [facility] for biopsy on 01/09/2023 at 12:30 PM. [...] Most Recently Relevant to Health Maintenance Insurance [facility] Advance Directives For more information, please contact: [phone] * Full Code (Latest Code Status on File) Date Activated Date Inactivated Comments 01/12/2020 6:28 PM 01/13/2020 8:23 PM Care Teams Steel Fabricator Relationship Specialty Start Date End Date No, Physician PCP - General 08/29/17
--- OUTSIDE RECORDS SUMMARY | 2024-12-29 00:11 | XMS_ITS | Clinical Summary ---
Author Organization [facility] Address [id number] [place] [address] Care Team Providers Care Tube Filler Name Role Phone Charmaine Cantu MD Primary Care Provider [phone] Allergies Active Allergy Reactions Criticality Noted Date [...] 06/03/2020 Iron deficiency anemia 05/01/2020 Atrial fibrillation ([facility]) 01/31/2020 Family History Medical History Relation Comments [place] Maternal Grandfather Breast Cancer Mother Hypertension Mother [...] Comments Blood Pressure 133/76 10/31/2022 1:00 AM PERFORMANCE IMPROVEMENT DIRECTOR Pulse 68 10/31/2022 1:00 AM PERFORMANCE IMPROVEMENT DIRECTOR Temperature 36.6 C (97.8 F) 10/30/2022 8:29 PM PERFORMANCE IMPROVEMENT DIRECTOR Respiratory Rate 16 10/31/2022 1:00 AM PERFORMANCE IMPROVEMENT DIRECTOR Oxygen Saturation 97% 10/31/2022 1:00 AM PERFORMANCE IMPROVEMENT DIRECTOR Inhaled Oxygen Concentration - - Weight 181.4 kg (400 lb) 10/30/2022 8:29 PM PERFORMANCE IMPROVEMENT DIRECTOR Height 172.7 cm (5' 8 ) 10/30/2022 8:29 PM PERFORMANCE IMPROVEMENT DIRECTOR Body Mass Index 60.82 10/30/2022 8:29 PM PERFORMANCE IMPROVEMENT DIRECTOR Plan of Treatment Health Maintenance Due Date [...] from hospital General Yaz Gutierrez RN [facility] Advance Directives * Full Code (Latest Code Status on File) Date Activated Date Inactivated Comments 05/28/2021 12:23 AM 05/29/2021 3:36 PM * Full Code Date Activated Date Inactivated Comments 06/03/2020 2:09 AM 06/04/2020 12:58 PM Care Teams Tube Filler Relationship Specialty Start Date End Date Cahrmaine Cantu MD [address] [place] [address] PCP - General INTERNAL MEDICINE 06/02/20
--- OUTSIDE RECORDS SUMMARY | 2024-12-29 00:11 | XMS_ITS | Referral Summary ---
Author Organization [facility] Address [address] [place] [address] Care Team Providers Care Polysomnograph Tech Name Role Phone Unavailable Primary Care Provider Unavailabl e Source Comments [facility] [employer],non-owned Affiliates and Associated Physician Practices is amultiple site organization consisting of ambulatory clinics and hospital sitesin [place], [place], [place] and [place]. This disclosure is being madepursuant to the Care Everywhere program and may not contain all information available regarding this patient. Last updated 18.[facility] [employer] Allergies No known active allergies Medications Be [...]
--- OUTSIDE RECORDS SUMMARY | 2024-12-29 00:11 | XMS_ITS | Encounter Summary ---
Author Organization [facility] Healthcare Address [address] [place] [address] Care Team Providers Care Insulation Cutter Name Role Phone No, Physician Primary Care Provider [phone] Reason for Visit * Diagnostic Imaging (Routine) - Closed Specialty Diagnoses / Procedures Referred By Contac t Referred To Contact Procedures Breast Imaging Screening Outside Reference Referral, Self Referral ID Status Reason Start Date Expiration Date Visits Re quested Visits Authorized [id number] Closed 12/26/2022 01/25/2024 1 1 Encounter Details Date Type Department Care Team (Late st Contact Info) Description 04/08/2019 Hospital Encounter [facility] [address] [place] [id number] Social History Tobacco Use Types Packs/Day Years [...] on file Legal Sex Female 7:50 PM COFFEE SHOP AIDE Gender Identity Not on file Sexual Orientation [...] CDT) Impressions [facility] - 12/26/2022 8:14 AM COFFEE SHOP AIDE These images are for Reference purposes only and have not been reviewed by [facility] Radiology. There will be no report generated by a [facility] Radiologist. Narrative [facility]MO[facility] - 12/26/2022 8:14 AM COFFEE SHOP AIDE EXAMINATION: Images For Reference Purposes Only us Self Referral IMG MAMMO PROCEDURES Final Resul t [facility] documented in this encounter Visit Diagnoses Not on filedocumented in this encounter Additional Health Concerns Infection Onset Date Last Indicated Resolved Time COVID: Suspected 05/08/2021 05/08/2021 05/08/2021 6:23 AM CDT COVID19 05/08/2021 05/08/2021 05/27/2021 3:05 AM CDT documented as of this encounter Care Teams Insulation Cutter Relationship Specialty Start Date End Date No, Physician PCP - General 08/29/17 documented as of this encounter
--- OUTSIDE RECORDS SUMMARY | 2024-12-29 00:11 | XMS_ITS | Patient Health Summary ---
Author Organization [facility] Address [address] [address] Care Team Providers Care Sheet Rock Sander Name Role Phone Unavailable Primary Care Provider Unavailabl e Note from [facility],non-owned Affiliates and Associated Physician Practices is amultiple site organization consisting of ambulatory clinics and hospital sitesin [place], [place], [place] and [place]. This disclosure is being madepursuant to the Care Everywhere program and may not contain all information available regarding this patient. Last updated 18.[employer] Allergies No known active allergies Medications Be [...]
--- OUTSIDE RECORDS SUMMARY | 2024-12-29 00:11 | XMS_ITS | Clinical Summary ---
Author Organization [facility] [employer] Address [address] [place] [address] Care Team Providers Care Fermenter Helper Name Role Phone Unavailable Primary Care Provider Unavailabl e Source Comments [facility] [employer],non-owned Affiliates and Associated Physician Practices is amultiple site organization consisting of ambulatory clinics and hospital sitesin [place], [place], [place] and [place]. This disclosure is being madepursuant to the Care Everywhere program and may not contain all information available regarding this patient. Last updated 18.[employer] Allergies No known active allergies Medications Be [...]
[2024-12-29 00:19] LABS: INR 0.9; Prothrombin Time 12.8 Seconds (11.1-14.7)
[2024-12-29] MEDS: dilTIAZem HCl INJ 25 MG/5 ML VIAL 10 MG IV PUSH (00:19)
[2024-12-29 00:20] LABS: Partial Thromboplastin Time 27.2 Seconds (22.3-36.8)
[2024-12-29 00:22] LABS: Alanine Aminotransferase 18 U/L (6-35); Albumin Level 3.9 g/dL (3.5-5.1); Alkaline Phosphatase 79 U/L (38-126); Anion Gap 11 mmol/L (4-12); Aspartate Amino Transferase 20 U/L (14-36); Bilirubin,Total 0.4 mg/dL (0.2-1.3); Blood Urea Nitrogen 19 mg/dL (7-17); Calcium 9.3 mg/dL (8.4-10.2); Carbon Dioxide 21 mmol/L (22-30); Chloride 106 mmol/L (98-107); Estimated CRCL calculation 139 ml/min; Estimated Glomerular Filt Rate > 60; Glucose 148 mg/dL (65-110); Lipase 81 U/L (23-300); Potassium 4.4 mmol/L (3.4-5.0); Sodium 138 mmol/L (137-145)
[2024-12-29 00:23] LABS: D Dimer 0.35 ug/mL (<0.48)
[2024-12-29 00:27] LABS: Magnesium 1.9 mg/dL (1.6-2.3)
[2024-12-29 00:33] LABS: Influenza A QL RT-PCR Negative (Negative); Influenza B QL RT-PCR Negative (Negative); RSV RNA, RT-PCR Negative (Negative); SARS-CoV-2 RNA PCR Negative (Negative)
[2024-12-29 00:34] LABS: Troponin I 0.013 ng/mL (0.000-0.034)
[2024-12-29] MEDS: dilTIAZem HCl INJ 25 MG/5 ML VIAL 15 MG IV PUSH (01:00)
[2024-12-29] MEDS: dilTIAZem 100 MG/100 ML 100 MG/100 ML BAG IV CONT (01:36)
--- NOTE | 2024-12-29 01:38 | PC.NURSE ---
IV diltizem drip verified by this RN and Kassie Anderson RN.
[2024-12-29 02:00] LABS: Hemoglobin A1C 5.9 % (<5.7)
[2024-12-29 02:03] LABS: NT Pro B Type Natriuretic Pept 286 pg/mL (19.9-100)
--- NOTE | 2024-12-29 02:05 | PC.NURSE ---
Patient used call light to call this RN into room. Patient stated she felt lightheaded and dizzy with associated nausea. Patient denied any pain. Patient requested to be readjusted in bed. Patient BP was recycled and readjusted in on the stretcher. Patient stated she felt slightly better and requested nausea medication. PA notified, orders being placed for nausea meds IVP, oral meds and to titrate drip up.
[2024-12-29] MEDS: ONDANSETRON INJ 4 MG/2 ML VIAL IV PUSH (02:09)
[2024-12-29 02:10] LABS: Free T4 Free Thyroxine 1.03 ng/dL (0.78-2.19)
--- NOTE | 2024-12-29 02:13 | ECG_ITS ---
Test Date: 2024-12-29 02:18:28 Measurements Intervals [place] Rate: 128 P: 0 NH: 0 QRS: 17 QRSD: 85 T: 12 QT: 290 QTc: 424 Interpretive Statements ATRIAL FIBRILLATION WITH RAPID VENTRICULAR RESPONSE BASELINE ARTIFACT- I, II, III, AVR, AVL, AVF ABNORMAL ECG Compared to ECG 12/28/2024 23:34:44 HEART RATE HAS DECREASED Electronically Signed On 12-29-2024 08:15:52 WIRE SPRING RELAY ADJUSTER by Shawn Morrison D.O.
[2024-12-29] MEDS: dilTIAZem HCL 30 MG TABLET PO ×4 (02:17→18:22)
[2024-12-29 03:08] LABS: Troponin I 0.015 ng/mL (0.000-0.034)
--- NOTE | 2024-12-29 03:19 | P.HP_ITS ---
H&P: HPI History of Present Illness Date/Time: 12/29/24 03:19 Chief Complaint: Chest pain and palpitations Narrative: A pleasant 44-year-old female with a history of paroxysmal atrial fibrillation and obesity who presents with acute onset of palpitations and heavy chest pain midsternal. She had a few days of feeling off but 1.5 hour prior to admission on 12/29/2024 they worsened acutely. She presented to [place] [facility]. In 2019 she was on a heart rate medication and Eliquis for atrial fibrillation however she took herself off of it because she did not like how they made her feel. She denies alcohol use, illicit drugs, tobacco abuse. Patient drinks about 3 very large coffee drinks per day. In the ER she was found to be in AFib with RVR heart rate in the 150s. Troponin negative. She was started on a Cardizem drip at 10 makes per hour and heart rate came down into the 100s. She was also given aspirin, metoprolol 5 mg IV x1, diltiazem 10 and 15 IV push, 1 L normal saline bolus. Zofran 4 mg IV x1. Patient reports afterwards she was feeling much better. Review of Systems Review of Systems: All systems reviewed & are unremarkable except as noted in HPI and below (HPI) [facility] Past Medical History Medical History (Updated 12/29/24 @ 02:17 by Aleisha Zhang PA-C) Paroxysmal A-fib Right calf pain No pertinent past medical history Surgical History Surgical History H/O left knee surgery Family History Family History (Updated 12/29/24 @ 02:37 by Jessica Chavez RN) Mother Breast cancer Grandparent Cerebrovascular accident Congestive heart failure Acute myocardial infarction Social History Social History Smoking status: Never smoker Alcohol intake: never Substance use: never Do You Feel Safe in your Home?: Yes Lack of Transportation: No Lack of Food: Never True Current Housing: I Have Housing Concerned About Future Housing: No Difficulty Paying Gas/Electric Bills: No Difficulty Paying for Meds: No Currently Unemployed: No Education: High School Diploma/GED Difficulty w/ Childcare or Family Care: No Gender identity (if verbalized by the patient): Female Spiritual care concerns: No Meds Home Medications and Allergies Home Medications ?Medication ?Instructions ?Recorded ?Confirmed ?Type No Home Medications 12/29/24 12/29/24 History Allergies Allergy/AdvReac Type Severity Reaction Status Date / Time No Known Drug Allergies Allergy Mild Unknown Verified 12/29/24 02:46 Vital Signs Vital Signs - 24 hr 12/28/24 23:27 12/28/24 23:42 12/28/24 23:42 Temperature 97.6 F Pulse Rate 150 H 161 H Respiratory Rate 22 H Blood Pressure 145/90 H Pulse Oximetry 100 Oxygen Delivery Room Air Room Air 12/28/24 23:46 12/28/24 23:47 12/28/24 23:49 Temperature Pulse Rate 135 H 131 H Respiratory Rate 18 23 H Blood Pressure 103/44 L 103/44 L 143/91 H Pulse Oximetry 97 100 Oxygen Delivery 12/28/24 23:49 12/29/24 00:00 12/29/24 00:05 Temperature Pulse Rate 130 H 139 H 134 H Respiratory Rate 19 16 Blood Pressure 143/91 H 135/61 Pulse Oximetry 98 Oxygen Delivery 12/29/24 00:18 12/29/24 00:30 12/29/24 00:32 Temperature Pulse Rate 132 H 118 H 116 H Respiratory Rate 19 15 20 Blood Pressure 123/75 Pulse Oximetry 100 99 98 Oxygen Delivery 12/29/24 01:36 12/29/24 02:09 Temperature Pulse Rate 120 H 119 H Respiratory Rate Blood Pressure 128/97 H 152/102 H Pulse Oximetry Oxygen Delivery Exam Const: General: comfortable and no acute distress Eyes: Pupils: Equal, round and reactive pupils present Neck: Neck: supple Resp: Effort & Inspection: normal respiratory effort Auscultation: clear to auscultation bilaterally Cardio: Rate: tachycardic Rhythm: abnormal rhythm Heart sounds: no gallops, no murmurs and no rubs GI: GI Palp: Yes Soft to palpation and No Tenderness to palpation present (GI) Extrem: General: no edema H&P: Results Labs Labs: Short CBC 12/28/24 Range/Units 23:52 WBC 8.3 (4.5-10.0) K/mm3 Hgb 12.4 (12.0-15.0) g/dL Hct 38.7 (37.0-47.0) % Plt Count 187 (150-375) k/mm3 BMP 12/28/24 23:52 Sodium 138 Potassium 4.4 Chloride 106 Carbon Dioxide 21 L BUN 19 H Creatinine 0.79 Glucose 148 H Calcium 9.3 Cardiac Enzymes 12/28/24 12/29/24 Range/Units 23:52 02:15 Troponin I 0.013 0.015 (0.000-0.034) ng/mL Liver Function 12/28/24 Range/Units 23:52 Total Bilirubin 0.4 (0.2-1.3) mg/dL AST 20 (14-36) U/L ALT 18 (6-35) U/L Alkaline Phosphatase 79 (38-126) U/L Albumin 3.9 (3.5-5.1) g/dL Assessment and Plan Assessment and plan (1) Paroxysmal A-fib: Code(s): I48.0 - Paroxysmal atrial fibrillation Status: Acute (2) Atrial fibrillation with rapid ventricular response: Code(s): I48.91 - Unspecified atrial fibrillation Status: Acute (3) Prediabetes: Code(s): R73.03 - Prediabetes Status: Acute (4) Elevated TSH: Code(s): R79.89 - Other specified abnormal findings of blood chemistry Status: Acute Plan A pleasant 44-year-old female with a history of paroxysmal atrial fibrillation and obesity who presents with acute onset of palpitations and heavy chest pain midsternal. She had a few days of feeling off but 1.5 hour prior to admission on 12/29/2024 they worsened acutely. She presented to [place] [facility]. In 2019 she was on a heart rate medication and Eliquis for atrial fibrillation however she took herself off of it because she did not like how they made her feel. She denies alcohol use, illicit drugs, tobacco abuse. Patient drinks about 3 very large coffee drinks per day. In the ER she was found to be in AFib with RVR heart rate in the 150s. Troponin negative. She was started on a Cardizem drip at 10 makes per hour and heart rate came down into the 100s. She was also given aspirin, metoprolol 5 mg IV x1, diltiazem 10 and 15 IV push, 1 L normal saline bolus. Zofran 4 mg IV x1. Patient reports afterwards she was feeling much better. ----- Advised patient to cut down greatly on her caffeine consumption. Currently on 10 milligrams/hour of diltiazem GTT. Wean as tolerated. Start Cardizem 30 mg p.o. q.4 hours. Cardiology to see in consultation in the morning. Continue telemetry. Troponin negative x2. Chest pain resolved. Start Eliquis 5 mg p.o. b.i.d.. Encouraged her to remain compliant and the risk of noncompliance. Patient agreed. Advised to continue pursuing weight loss follow-up in the outpatient setting. Patient was agreeable. ----- Eliquis Patient wishes to be full code Hospitalist MIPS Advance Care Plan I have confirmed that the patient's Advanced Care Plan is present, code status is documented, or surrogate decision maker is listed in patient medical record.: Yes Medication Reconciliation I have utilized all available resources to obtain, update and review the patients current medications (includes all prescriptions, OTC, herbals, cannabis, and nutritional supplements).: Yes
[2024-12-29] MEDS: APIXABAN 5 MG TABLET PO ×2 (04:14→20:10)
--- NOTE | 2024-12-29 07:21 | PC.NURSE ---
Diltiazem titrated by this RN and Cat, RN.
--- NOTE | 2024-12-29 08:44 | PC.NURSE ---
Pt. ate 100% of meal.
[2024-12-29] MEDS: dilTIAZem 100 MG/100 ML 100 MG/100 ML BAG 15 MG (09:20)
--- NOTE | 2024-12-29 09:46 | ECG_ITS ---
Test Date: 2024-12-29 09:53:06 Measurements Intervals [place] Rate: 83 P: 10 OR: 158 QRS: 20 QRSD: 95 T: 15 QT: 379 QTc: 447 Interpretive Statements SINUS RHYTHM INCOMPLETE RIGHT BUNDLE BRANCH BLOCK BASELINE ARTIFACT- I, III, AVR, AVL BORDERLINE ECG Compared to ECG 12/29/2024 02:18:28 Atrial fibrillation no longer present Electronically Signed On 12-29-2024 11:06:44 [employer] by Shawn Morrison D.O.
--- NOTE | 2024-12-29 09:50 | PC.NURSE ---
pter Dr King, diltiazem infusion to be discontinued
--- NOTE | 2024-12-29 12:07 | PC.NURSE ---
Pharmacy called for oral Diltiazem to be tubed to the ED.
[2024-12-29] MEDS: ACETAMINOPHEN 325 MG TABLET 650 MG PO ×2 (12:52→20:10)
--- NOTE | 2024-12-29 13:00 | PC.NURSE ---
Pt. ate 100% of meal. Meal tray removed from room.
--- NOTE | 2024-12-29 13:03 | P.PNIM_ITS ---
Progress Note: A&P Assessment and Plan (1) Paroxysmal A-fib: Code(s): I48.0 - Paroxysmal atrial fibrillation Status: Acute (2) Atrial fibrillation with rapid ventricular response: Code(s): I48.91 - Unspecified atrial fibrillation Status: Acute (3) Prediabetes: Code(s): R73.03 - Prediabetes Status: Acute (4) Elevated TSH: Code(s): R79.89 - Other specified abnormal findings of blood chemistry Status: Acute Plan Afib RVR Now converted to NSR on Cardizem infusion and Eliquis for now [id number] score 1 no anticoagulation recommended Cardiology consulted Patient was diagnosed of Afib in 2020 however she stopped Eliquis and Metoprolol on her own after a few weeks Chest pain patient noted chest pressure ECHO and stress test pending Troponin negative Obesity patient counseled about lifestyle modification DVT prophylaxis on Eliquis Subjective Date/time seen: 12/29/24 13:03 Interval history: Patient comfortable at bedside converted NSR awaiting cardiology eval Review of Systems Review of Systems: All systems reviewed & are unremarkable except as noted in HPI and below (HPI) Exam Const: General: comfortable and no acute distress Eyes: Pupils: Equal, round and reactive pupils present Neck: Neck: supple Resp: Effort & Inspection: normal respiratory effort Auscultation: clear to auscultation bilaterally Cardio: Rate: tachycardic Rhythm: abnormal rhythm Heart sounds: no gallops, no murmurs and no rubs Neuro: Cranial nerves: Yes Equal, round and reactive pupils present Extrem: General: no edema Objective Data Vital Signs Vital Signs: Vital Signs - 24 hr 12/28/24 23:27 12/28/24 23:42 12/28/24 23:42 Temperature 97.6 F Pulse Rate 150 H 161 H Respiratory Rate 22 H Blood Pressure 145/90 H Pulse Oximetry 100 Oxygen Delivery Room Air Room Air 12/28/24 23:46 12/28/24 23:47 12/28/24 23:49 Temperature Pulse Rate 135 H 131 H Respiratory Rate 18 23 H Blood Pressure 103/44 L 103/44 L 143/91 H Pulse Oximetry 97 100 Oxygen Delivery 12/28/24 23:49 12/29/24 00:00 12/29/24 00:05 Temperature Pulse Rate 130 H 139 H 134 H Respiratory Rate 19 16 Blood Pressure 143/91 H 135/61 Pulse Oximetry 98 Oxygen Delivery 12/29/24 00:18 12/29/24 00:30 12/29/24 00:32 Temperature Pulse Rate 132 H 118 H 116 H Respiratory Rate 19 15 20 Blood Pressure 123/75 Pulse Oximetry 100 99 98 Oxygen Delivery 12/29/24 00:37 12/29/24 01:36 12/29/24 02:09 Temperature Pulse Rate 112 H 120 H 119 H Respiratory Rate 17 Blood Pressure 128/97 H 152/102 H Pulse Oximetry 100 Oxygen Delivery 12/29/24 02:56 12/29/24 03:08 12/29/24 03:34 Temperature Pulse Rate 119 H 116 H 117 H Respiratory Rate 19 12 19 Blood Pressure Pulse Oximetry 99 98 98 Oxygen Delivery 12/29/24 03:45 12/29/24 04:00 12/29/24 04:01 Temperature Pulse Rate 116 H 104 H 107 H Respiratory Rate 16 14 16 Blood Pressure 121/77 Pulse Oximetry 98 98 98 Oxygen Delivery 12/29/24 04:02 12/29/24 04:15 12/29/24 04:30 Temperature Pulse Rate 113 H 112 H 103 H Respiratory Rate 15 20 15 Blood Pressure Pulse Oximetry 98 99 98 Oxygen Delivery 12/29/24 04:31 12/29/24 04:45 12/29/24 05:00 Temperature Pulse Rate 106 H 114 H 101 H Respiratory Rate 16 14 15 Blood Pressure 142/99 H Pulse Oximetry 99 96 99 Oxygen Delivery 12/29/24 05:01 12/29/24 07:20 12/29/24 08:30 Temperature Pulse Rate 119 H 125 H 103 H Respiratory Rate 18 16 Blood Pressure 150/93 H 150/101 H 116/62 Pulse Oximetry 98 95 Oxygen Delivery 12/29/24 09:20 12/29/24 09:59 12/29/24 09:59 Temperature Pulse Rate 105 H 81 81 Respiratory Rate Blood Pressure 125/82 122/59 L 122/59 L Pulse Oximetry Oxygen Delivery 12/29/24 11:04 Temperature Pulse Rate 80 Respiratory Rate 16 Blood Pressure 120/88 Pulse Oximetry 99 Oxygen Delivery Intake/Output Intake/Output: Intake & Output 12/26/24 12/27/24 12/28/24 12/29/24 23:59 23:59 23:59 23:59 Intake Total 1104.2 Balance 1104.2 Meds/Results Medications: Active Medications Generic Name Dose Route Start Last Admin Trade Name Freq PRN Reason Stop Dose Admin Acetaminophen 650 mg 12/29/24 02:06 12/29/24 12:52 Acetaminophen 325 Mg Tablet PO 650 mg Q4H PRN Administration Mild Pain (1-3) or Fever Apixaban 5 mg 12/29/24 03:20 12/29/24 04:14 Apixaban 5 Mg Tablet PO 5 mg Q12HR LIZZY Administration Dextrose 12.5 gm 12/29/24 02:06 Dextrose 50% 25 Gm/50 Ml Syringe IV PUSH PRN PRN Hypoglycemia Protocol Diltiazem HCl 30 mg 12/29/24 06:00 12/29/24 12:54 Diltiazem Hcl 30 Mg Tablet PO 30 mg Q6HR LIZZY Administration Glucagon 1 mg 12/29/24 02:06 Glucagon For Inj 1 Mg Vial IM PRN PRN Hypoglycemia Protocol Glucose 15 gm 12/29/24 02:06 Glucose Oral Gel 15 Gm Of Glucse In 37.5 Gm Tube PO PRN PRN Hypoglycemia Protocol Dextrose 1,000 mls @ 100 mls/hr 12/29/24 02:06 Dextrose 5% 1,000 Ml IVPB PRN PRN Hypoglycemia Protocol Ondansetron HCl 4 mg 12/29/24 02:06 Ondansetron Inj 4 Mg/2 Ml Vial IV PUSH Q4H PRN Nausea Perflutren Lipid Microsphere 0 ml 12/29/24 02:02 Perflutren Lipid Microspheres 1.5 Ml Vial Diluted To 10 Ml Total Volume IV PUSH 01/01/25 02:02 ONCE PRN adequate visualization Protocol Radiology Results: ITS Impressions Chest X-Ray 12/29/24 09:05 IMPRESSION: 1. No acute cardiopulmonary disease. Labs Labs: Laboratory Results - last 24 hr 12/28/24 12/28/24 12/28/24 01:04 23:50 23:52 WBC 8.3 RBC 4.57 Hgb 12.4 Hct 38.7 MCV 84.7 MCH 27.1 MCHC 32.0 RDW 13.9 Plt Count 187 MPV 12.1 H Immature Gran % (Auto) 0.1 Neut % (Auto) 67.5 Lymph % (Auto) 23.2 [place] % (Auto) 6.7 Eos % (Auto) 1.9 Baso % (Auto) 0.6 Lymph # (Auto) 1.93 [place] # (Auto) 0.6 Eos # (Auto) 0.2 Baso # (Auto) 0.1 Abs Immat Gran (auto) 0.01 Absolute Neuts (auto) 5.6 Absolute Nucleated RBC 0.000 Nucleated RBC % 0.0 PT 12.8 INR 0.9 APTT 27.2 D-Dimer 0.35 Sodium 138 Potassium 4.4 Chloride 106 Carbon Dioxide 21 L Anion Gap 11 BUN 19 H Creatinine 0.79 Estim Creat Clear Calc 139 Estimated GFR > 60 Glucose 148 H Hemoglobin A1c 5.9 H Calcium 9.3 Magnesium 1.9 Total Bilirubin 0.4 AST 20 ALT 18 Alkaline Phosphatase 79 Troponin I 0.013 NT-Pro-B Natriuret Pep 286 H Total Protein 7.0 Albumin 3.9 Lipase 81 TSH 4.800 H Free T4 1.03 Influenza A (RT-PCR) Negative Influenza B (RT-PCR) Negative RSV (RT-PCR) Negative SARS-CoV-2 RNA (RT-PCR) Negative 12/29/24 02:15 WBC RBC Hgb Hct MCV MCH MCHC RDW Plt Count MPV Immature Gran % (Auto) Neut % (Auto) Lymph % (Auto) [place] % (Auto) Eos % (Auto) Baso % (Auto) Lymph # (Auto) [place] # (Auto) Eos # (Auto) Baso # (Auto) Abs Immat Gran (auto) Absolute Neuts (auto) Absolute Nucleated RBC Nucleated RBC % PT INR APTT D-Dimer Sodium Potassium Chloride Carbon Dioxide Anion Gap BUN Creatinine Estim Creat Clear Calc Estimated GFR Glucose Hemoglobin A1c Calcium Magnesium Total Bilirubin AST ALT Alkaline Phosphatase Troponin I 0.015 NT-Pro-B Natriuret Pep Total Protein Albumin Lipase TSH Free T4 Influenza A (RT-PCR) Influenza B (RT-PCR) RSV (RT-PCR) SARS-CoV-2 RNA (RT-PCR)
--- NOTE | 2024-12-29 13:32 | PC.NURSE ---
Pt. takes no home medications.
--- NOTE | 2024-12-29 14:10 | PC.NURSE ---
Report attempted to 2nd medical. Nurse to call ED with any questions.
--- NOTE | 2024-12-29 14:52 | ADMGEN ---
This patient, Tish Devries, was admitted to Medical Room 246-01. Patient/family oriented to hospital policies and general routines including ID bracelet, bed and alarms, visiting hours, pain management, procedures, bathroom and other care routines, personal items, smoking policy, room service/diet, and visiting hours. Information on how to activate the Rapid Response Team has been discussed. Patient/Family are encouraged to report perceived risks to care and to ask questions if they do not understand what they are told or what they should do.
[2024-12-30] VITALS (10 sets, daily range): BP systolic 125–131; BP diastolic 58–68; PULSE 67–78; RESP 16–20; TEMP 36.5–36.8; O2SAT 91–100
--- NOTE | 2024-12-30 | EST_ITS ---
Patient Info Name: Tish Devries Age: 44 years : 1980 Gender: Female Ht: 68 in Wt: 417 lbs BSA: 3.14 m2 Exam Date: 12/30/2024 2:24 PM Exam Location: Echo Lab Patient Status: Inpatient Admit Date: 12/29/2024 Staff Ordering Physician: Ayan Huggins MD Attending Provider: Yulisa Forde MD Exercise Technologist: Teresa Caba RDCS Nurse: Uma Manley APN Exam Type: CA stress jacinto w NM Study Info Indications R07.9 - Chest pain, unspecified A regadenoson stress test was performed. Summary 1. No abnormal ST-T wave changes with lexiscan. 2. Please correlate with nuclear medicine images, reported separately. Protocol: Lexiscan Stress ECG Details Stage: REST Duration (min): 1 min : 48 sec HR (bpm): 74 SBP (mmHg): 145 DBP (mmHg): 67 Stage: REST Duration (min): 5 min : 11 sec HR (bpm): 74 SBP (mmHg): 145 DBP (mmHg): 67 Stage: STAGE 1 Duration (min): 0 min : 59 sec HR (bpm): 102 SBP (mmHg): 145 DBP (mmHg): 67 Stage: RECOVERY Duration (min): 1 min : 0 sec HR (bpm): --- SBP (mmHg): 134 DBP (mmHg): 58 Stage: RECOVERY Duration (min): 2 min : 0 sec HR (bpm): 90 SBP (mmHg): 134 DBP (mmHg): 58 Stage: RECOVERY Duration (min): 3 min : 0 sec HR (bpm): 81 SBP (mmHg): 134 DBP (mmHg): 58 Stage: RECOVERY Duration (min): 3 min : 43 sec HR (bpm): 93 SBP (mmHg): 134 DBP (mmHg): 58 Rest HR: 74 bpm Peak HR: 102 bpm Rest Sys BP: 145 mmHg Peak Sys BP: 134 mmHg Max Pred HR: 174 bpm % Max Pred HR: 59 % Target HR: 148 bpm Max RPP: 13,668 bpm*mmHg Total Time: 1 min : 0 sec Rest Shanks BP: 67 mmHg Peak Shanks BP: 58 mmHg Total Dose: 0.4 mg Resting ECG Sinus rhythm with no ischemic ST T wave changes. Stress ECG Sinus tachycardia with no ischemic ST T wave changes. Arrhythmias None. Report Signatures
--- NOTE | 2024-12-30 | ECHO_ITS ---
Patient Info Name: Tish Devries Age: 44 years : 1980 Gender: Female Ht: 68 in Wt: 417 lbs BSA: 3.14 m2 HR: 77 bpm BP: 127 / 68 mmHg Technical Quality: Poor Exam Date: 12/30/2024 8:07 AM Exam Location: Echo Lab Patient Status: Outpatient Admit Date: 12/29/2024 Staff Ordering Physician: Yulisa Forde MD Pole Classifier: Baljinder Roca RDCS Attending Provider: Yulisa Forde MD Exam Type: CA echo dop color flow w con Study Info Indications - AFIB Complete two-dimensional, color flow and Doppler transthoracic echocardiogram is performed with contrast to opacify the left ventricle and to improve the deliniation of the left ventricle endocardial borders. Contrast/Agitated Saline Contrast/Ag. Saline: Definity Amount: 2.00 ml Existing IV Access: Yes Reason for Poor Study: poor echocardiographic windows Summary 1. The left ventricle is normal in size and systolic function. There is concentric left ventricular remodeling. The left ventricular ejection fraction is visually estimated to be 60-65%. 2. The right ventricle is normal in size and systolic function. Left Ventricle The left ventricle is normal in size and systolic function. There is concentric left ventricular remodeling. The left ventricular ejection fraction is visually estimated to be 60-65%. Right Ventricle The right ventricle is normal in size and systolic function. Left Atria The left atrium is normal size. Right Atria The right atrium is normal size. Atrial Septum The atrial septum visually appears intact. Aortic Valve The aortic valve opens well. There is no aortic regurgitation. Pulmonic Valve The pulmonic valve is not well visualized. There is no pulmonic valve regurgitation by color Doppler. Mitral Valve The mitral valve is grossly normal. There is no mitral regurgitation. Tricuspid Valve The tricuspid valve is grossly normal. There is trace tricuspid regurgitation. Pericardium/Pleural Pericardium is normal in appearance with no evidence for significant pericardial effusion. Inferior Vena Cava Normal inferior vena cava with >50% collapse upon inspiration consistent with normal right atrial pressure, 3 mmHg. Aorta The aortic root at the level of the sinus of Valsalva measures 2.4 cm in diameter. Left Ventricular Outflow Tract Name Value Normal LVOT 2D LVOT Diameter 2.10 cm LVOT Doppler LVOT Peak Gradient 6 mmHg LVOT Mean Gradient 4 mmHg LVOT VTI 29.44 cm LVOT VTI/AV VTI Ratio 0.88 LVOT Stroke Volume 102.36 ml LVOT CO 7.47 l/min LVOT CI 2.38 L/min/m2 Pulmonic Valve Name Value Normal RVOT Doppler RVOT Peak Gradient 2 mmHg PV Doppler PV Peak Gradient 2 mmHg Mitral Valve Name Value Normal MV Doppler MV Peak Gradient 4 mmHg MV Mean Gradient 2 mmHg MV Decel [place] 724.33 cm/s2 MV PHT 0 s MV Area (PHT) 6.07 cm2 4.00-5.00 MV Area (Cont Eq VTI) 4.20 cm2 MV Diastolic Function MV E Peak Velocity 90.56 cm/s MV A Peak Velocity 66.92 cm/s MV E/A 1.35 MV Decel Time 0 s MV Annular TDI MV E/e' (Septal) 7.98 <=8.00 MV E/e' (Lateral) 5.75 <=8.00 MV E/e' (Average) 6.86 Tricuspid Valve Name Value Normal TV Regurgitation Doppler TR Peak Velocity 286.47 cm/s TR Peak Gradient 33 mmHg Estimated PAP/RSVP RA Pressure 3 mmHg <=5 PA Systolic Pressure 36 mmHg <36 RV Systolic Pressure 36 mmHg <36 Aorta Name Value Normal Ascending Aorta Ao Root Diameter (MM) 3.12 cm Ao Root Diam Index (MM) 1.00 cm/m2 Aortic Valve Name Value Normal AV Doppler AV Peak Velocity 161.80 cm/s AV Peak Gradient 10 mmHg AV Mean Gradient 6 mmHg AV VTI 33.50 cm AV Area (Cont Eq VTI) 3.06 cm2 >=3.00 AV Area (Cont Eq Harvey) 2.71 cm2 AV Regurgitation 2D LVOT Area 3.48 cm2 Ventricles Name Value Normal LV Dimensions 2D/MM IVS Diastolic Thickness (2D) 1.35 cm 0.60-1.00 LVID Diastole (2D) 4.38 cm 3.80-5.20 LVIW Diastolic Thickness (2D) 2.00 cm 0.60-0.90 LVID Systole (2D) 2.96 cm 2.20-3.50 LVOT Diameter 2.10 cm LV Mass (2D Cubed) 316.02 g 67.00-162.00 LV Mass Index (2D Cubed) 0.01 g/cm2 0.00-0.01 Relative Wall Thickness (2D) 0.91 LV Fractional Shortening/Ejection Fraction 2D/MM LV Fractional Shortening (2D) 35 % 27-45 LV EF (2D Teicholz) 64 % 54-74 LV Diastolic Volume (4C MOD) 155.38 ml LV EF (4C MOD) 67 % LV Diastolic Volume (2C MOD) 168.87 ml LV EF (2C MOD) 45 % LV Diastolic Volume (BP MOD) 165.57 ml 46.00-106.00 LV Diastolic Volume Index (BP MOD) 0.05 l/m2 0.03-0.06 LV Systolic Volume (BP MOD) 72.55 ml 14.00-42.00 LV Systolic Volume Index (BP MOD) 0.02 l/m2 0.01-0.02 LV EF (BP MOD) 56 % 54-74 LV Diastolic Length (4C) 9.02 cm LV Systolic Length (4C) 8.13 cm LV Stroke Volume (4C MOD) 103.33 ml Atria Name Value Normal LA Dimensions LA Dimension (MM) 3.37 cm 2.70-3.80 LA Volume (4C A-L) 84.78 ml LA Volume (BP A-L) 83.91 ml RA Dimensions RA Area (4C) 12.88 cm2 <=18.00 Report Signatures
[2024-12-30] MEDS: dilTIAZem HCL 30 MG TABLET PO ×2 (00:55→06:30)
[2024-12-30 06:25] LABS: Basophils Percent Auto 0.7 % (0.2-1.2); Eosinophils Absolute Auto 0.1 K/mm3 (0-0.3); Hematocrit 35.5 % (37.0-47.0); Hemoglobin 10.9 g/dL (12.0-15.0); Immature Granulocyte Absolute 0.01 K/mm3 (0.00-0.031); Immature Granulocyte Percent A 0.2 % (0-0.5); Lymphocytes Absolute Auto 2.07 K/mm3 (0.9-3.2); Lymphocytes Percent Auto 34.3 % (18.3-44.2); Mean Corpuscular HGB Conc 30.7 g/dl (32-36); Mean Corpuscular Hemoglobin 26.7 pg (26-34); Mean Platelet Volume 11.7 fl (7.4-10.4); Monocytes Absolute Auto 0.4 K/mm3 (0.1-0.6); Monocytes Percent Auto 6.3 % (2.6-8.5); Neutrophils Absolute Auto 3.4 K/mm3 (1.3-6.7); Neutrophils Percent Auto 56.5 % (45.5-73.1); Platelet Count Result 177 k/mm3 (150-375); Red Blood Count 4.08 M/mm3 (4.2-5.4); Red Cell Distribution Width 14.3 % (11.5-14.5)
[2024-12-30 06:44] LABS: Alanine Aminotransferase 18 U/L (6-35); Albumin Level 3.5 g/dL (3.5-5.1); Alkaline Phosphatase 56 U/L (38-126); Anion Gap 6 mmol/L (4-12); Aspartate Amino Transferase 19 U/L (14-36); Bilirubin,Total 0.4 mg/dL (0.2-1.3); Blood Urea Nitrogen 14 mg/dL (7-17); Calcium 8.6 mg/dL (8.4-10.2); Carbon Dioxide 27 mmol/L (22-30); Chloride 104 mmol/L (98-107); Estimated CRCL calculation 169 ml/min; Estimated Glomerular Filt Rate > 60; Glucose 111 mg/dL (65-110); Potassium 4.3 mmol/L (3.4-5.0); Sodium 137 mmol/L (137-145)
[2024-12-30] MEDS: PERFLUTREN LIPID MICROSPHERES 1.5 ML VIAL DILUTED TO 10 ML TOTAL VOLUME IV PUSH (08:20)
[2024-12-30] MEDS: APIXABAN 5 MG TABLET PO ×2 (09:19→20:11)
--- NOTE | 2024-12-30 11:50 | P.CONCA_ITS ---
Assessment and Plan Assessment and plan (1) Paroxysmal A-fib: Code(s): I48.0 - Paroxysmal atrial fibrillation Status: Acute Plan 44-year-old woman with obesity and paroxysmal atrial fibrillation presents with chest discomfort in setting of paroxysmal atrial fibrillation with rapid ventricular rate Paroxysmal atrial fibrillation with rapid ventricular rate -currently in sinus rhythm -continue Toprol 25mg p.o. daily -her chads Vasc is 1 and risk and benefits of anticoagulation discussed with patient and at this time would not continue anticoagulation -most likely triggered by excess caffeine intake. Patient awake overnight counselor on lifestyle modifications such as weight loss and re-evaluation for sleep apnea. Patient also counseled on effects on alcohol/tobacco on atrial fibrillation Chest discomfort -most likely secondary to her atrial fibrillation -a nuclear stress test has already been ordered and will review once completed -if not completed today, she can follow up outpatient Obesity -patient counseled on lifestyle modification and benefits of weight loss History of Present Illness History of Present Illness Consult date/time: 12/30/24 11:50 Requesting physician: Juan Woodward MD Reason For Visit: Afib w/RVR Narrative: 44-year-old woman with obesity and paroxysmal atrial fibrillation presents with chest discomfort in setting of paroxysmal atrial fibrillation with rapid ventricular rate. She typically does not encounter chest discomfort or exertional shortness of breath at home. Denies any syncopal events. She had an episode of atrial fibrillation several years ago. Both of these events are in setting of excess caffeine intake. She is now currently in sinus rhythm without any chest discomfort or shortness of breath. Review of Systems 2 Cardiovascular: Cardiovascular: Reports as per HPI Respiratory: Respiratory: Reports as per HPI [facility] Past Medical History Medical History (Updated 12/29/24 @ 02:17 by Aleisha Zhang PA-C) Paroxysmal A-fib Right calf pain No pertinent past medical history Surgical History Surgical History H/O left knee surgery Family History Family History (Updated 12/29/24 @ 02:37 by Jessica Chavez RN) Mother Breast cancer Grandparent Cerebrovascular accident Congestive heart failure Acute myocardial infarction Social History Social History Smoking status: Never smoker Alcohol intake: never Substance use: never Do You Feel Safe in your Home?: Yes Lack of Transportation: No Lack of Food: Never True Current Housing: I Have Housing Concerned About Future Housing: No Difficulty Paying Gas/Electric Bills: No Difficulty Paying for Meds: No Currently Unemployed: No Education: High School Diploma/GED Difficulty w/ Childcare or Family Care: No Gender identity (if verbalized by the patient): Female Spiritual care concerns: No Meds Home Medications and Allergies Home Medications ?Medication ?Instructions ?Recorded ?Confirmed ?Type No Home Medications 12/29/24 12/29/24 History Allergies Allergy/AdvReac Type Severity Reaction Status Date / Time No Known Drug Allergies Allergy Mild Unknown Verified 12/29/24 02:46 Vital Signs Vital Signs - 24 hr 12/29/24 14:14 12/29/24 14:40 12/29/24 20:00 Temperature 37.1 C 36.8 C Pulse Rate 79 81 70 Respiratory Rate 18 12 18 Blood Pressure 102/66 111/62 118/59 L Pulse Oximetry 98 99 98 Oxygen Delivery 12/29/24 20:00 12/29/24 20:46 12/30/24 00:00 Temperature 36.8 C Pulse Rate 78 70 68 Respiratory Rate 18 Blood Pressure 118/59 L Pulse Oximetry 98 Oxygen Delivery 12/30/24 04:00 12/30/24 05:21 12/30/24 08:03 Temperature 36.6 C Pulse Rate 70 77 72 Respiratory Rate 18 Blood Pressure 127/68 Pulse Oximetry 91 Oxygen Delivery 12/30/24 09:19 12/30/24 09:19 Temperature Pulse Rate 72 Respiratory Rate 18 Blood Pressure Pulse Oximetry 91 Oxygen Delivery Room Air Exam 2 Const: General: comfortable HENMT: Mouth: Yes moist mucous membranes Eyes: EOM: EOMs intact bilaterally Neck: Neck: no JVD Resp: Effort & Inspection: normal respiratory effort Auscultation: clear to auscultation bilaterally Cardio: Rate: regular rate Rhythm: regular rhythm Neuro: Speech: normal speech Extrem: General: no edema Results Labs and Meds 12/30/24 06:02 12/30/24 06:03 Lab results: Cardiac Enzymes 12/30/24 Range/Units 06:03 AST 19 (14-36) U/L CBC 12/30/24 Range/Units 06:02 WBC 6.0 (4.5-10.0) K/mm3 RBC 4.08 L (4.2-5.4) M/mm3 Hgb 10.9 L (12.0-15.0) g/dL Hct 35.5 L (37.0-47.0) % Plt Count 177 (150-375) k/mm3 Lymph # (Auto) 2.07 (0.9-3.2) K/mm3 [place] # (Auto) 0.4 (0.1-0.6) K/mm3 Eos # (Auto) 0.1 (0-0.3) K/mm3 Baso # (Auto) 0.0 (0.0-0.1) K/mm3 Comprehensive Metabolic Panel 12/30/24 Range/Units 06:03 Sodium 137 (137-145) mmol/L Potassium 4.3 (3.4-5.0) mmol/L Chloride 104 (98-107) mmol/L Carbon Dioxide 27 (22-30) mmol/L BUN 14 D (7-17) mg/dL Creatinine 0.64 L (0.7-1.0) mg/dL Glucose 111 H (65-110) mg/dL Calcium 8.6 (8.4-10.2) mg/dL AST 19 (14-36) U/L ALT 18 (6-35) U/L Alkaline Phosphatase 56 (38-126) U/L Total Protein 6.0 L (6.3-8.2) g/dL Albumin 3.5 (3.5-5.1) g/dL Intake and Output 12/29/24 12/30/24 12/30/24 23:59 07:59 15:59 Intake Total 690 240 Balance 690 240 Intake: Oral 690 240 Other: # Unmeasured Voids 1 3 Patient Weight 12/30/24 23:59 Weight 189.5 kg
--- NOTE | 2024-12-30 12:04 | IVDEFINITY ---
Prior to administration of IV Definity the patient was educated on the risks and benefits of the imaging enhancing agent including potential adverse side effects. The patient verbalized understanding. Allergies were verified. No exclusion criteria were identified and at least one of the following inclusion criteria were met: 1) physician request, 2) patient technically difficult to image (per the [place] [employer]ocardi[employer] guidelines of two or more segments not discernable within the apical view), or 3) questionable left ventricular function. ?
[2024-12-30] MEDS: ACETAMINOPHEN 325 MG TABLET 650 MG PO (20:11)
[2024-12-31] VITALS (9 sets, daily range): BP systolic 128–131; BP diastolic 67–72; PULSE 71–81; RESP 20; TEMP 36.7–36.8; O2SAT 97–99
--- NOTE | 2024-12-31 08:28 | P.PNIM_ITS ---
Progress Note: A&P Assessment and Plan (1) Paroxysmal A-fib: Code(s): I48.0 - Paroxysmal atrial fibrillation Status: Acute (2) Atrial fibrillation with rapid ventricular response: Code(s): I48.91 - Unspecified atrial fibrillation Status: Acute (3) Prediabetes: Code(s): R73.03 - Prediabetes Status: Acute (4) Elevated TSH: Code(s): R79.89 - Other specified abnormal findings of blood chemistry Status: Acute Plan Afib RVR Now converted to NSR On metoprolol succinate 25 mg PO QD and Eliquis for now [id number] score 1 no anticoagulation recommended Cardiology consulted Patient was diagnosed of Afib in 2020 however she stopped Eliquis and Metoprolol on her own after a few weeks Chest pain patient noted chest pressure ECHO reviewed and stress test pending Troponin negative Obesity patient counseled about lifestyle modification DVT prophylaxis on Eliquis Subjective Date/time seen: 12/31/24 08:28 Interval history: Pending nuclear stress test. Review of Systems Review of Systems: All systems reviewed & are unremarkable except as noted in HPI and below (HPI) Exam Const: General: comfortable and no acute distress Eyes: Pupils: Equal, round and reactive pupils present Neck: Neck: supple Resp: Effort & Inspection: normal respiratory effort Auscultation: clear to auscultation bilaterally Cardio: Rate: tachycardic Rhythm: abnormal rhythm Heart sounds: no gallops, no murmurs and no rubs Neuro: Cranial nerves: Yes Equal, round and reactive pupils present Extrem: General: no edema Objective Data Vital Signs Vital Signs: Vital Signs - 24 hr 12/30/24 09:19 12/30/24 09:19 12/30/24 12:01 Temperature Pulse Rate 72 67 Respiratory Rate 18 Blood Pressure Pulse Oximetry 91 Oxygen Delivery Room Air 12/30/24 14:00 12/30/24 16:03 12/30/24 20:00 Temperature 97.7 F Pulse Rate 74 76 72 Respiratory Rate 16 20 Blood Pressure 125/58 L Pulse Oximetry 100 99 Oxygen Delivery Room Air 12/30/24 20:00 12/30/24 21:17 12/31/24 00:00 Temperature 98.2 F Pulse Rate 78 72 78 Respiratory Rate 20 Blood Pressure 131/63 Pulse Oximetry 99 Oxygen Delivery 12/31/24 04:00 12/31/24 04:29 12/31/24 07:54 Temperature 98.3 F Pulse Rate 81 74 Respiratory Rate 20 20 Blood Pressure 131/67 Pulse Oximetry 99 99 Oxygen Delivery Room Air Intake/Output Intake/Output: Intake & Output 12/28/24 12/29/24 12/30/24 12/31/24 23:59 23:59 23:59 23:59 Intake Total 1794.2 480 390 Balance 1794.2 480 390 Meds/Results Medications: Active Medications Generic Name Dose Route Start Last Admin Trade Name Freq PRN Reason Stop Dose Admin Acetaminophen 650 mg 12/29/24 02:06 12/30/24 20:11 Acetaminophen 325 Mg Tablet PO 650 mg Q4H PRN Administration Mild Pain (1-3) or Fever Apixaban 5 mg 12/29/24 03:20 12/30/24 20:11 Apixaban 5 Mg Tablet PO 5 mg Q12HR LIZZY Administration Dextrose 12.5 gm 12/29/24 02:06 Dextrose 50% 25 Gm/50 Ml Syringe IV PUSH PRN PRN Hypoglycemia Protocol Glucagon 1 mg 12/29/24 02:06 Glucagon For Inj 1 Mg Vial IM PRN PRN Hypoglycemia Protocol Glucose 15 gm 12/29/24 02:06 Glucose Oral Gel 15 Gm Of Glucse In 37.5 Gm Tube PO PRN PRN Hypoglycemia Protocol Dextrose 1,000 mls @ 100 mls/hr 12/29/24 02:06 Dextrose 5% 1,000 Ml IVPB PRN PRN Hypoglycemia Protocol Metoprolol Succinate 25 mg 12/31/24 09:00 Metoprolol Succinate Ext Rel 25 Mg Tabcr PO QAM [facility] Ondansetron HCl 4 mg 12/29/24 02:06 Ondansetron Inj 4 Mg/2 Ml Vial IV PUSH Q4H PRN Nausea Radiology Results: ITS Impressions Chest X-Ray 12/29/24 09:05 IMPRESSION: 1. No acute cardiopulmonary disease. Lexiscan Stress Test 12/30/24 15:43 IMPRESSION: 1. Normal myocardial perfusion at rest and during stress. 2. Left ventricular ejection fraction measuring >70%.
[2024-12-31] MEDS: METOPROLOL SUCCINATE EXT REL 25 MG TABCR PO (08:49)
[2024-12-31] MEDS: APIXABAN 5 MG TABLET PO (08:50)
[2024-12-31 09:35] LABS: Hematocrit 35.8 % (37.0-47.0); Hemoglobin 11.1 g/dL (12.0-15.0); Mean Corpuscular Hemoglobin 26.9 pg (26-34); Mean Corpuscular Volume 86.9 fl (80-100); Platelet Count Result 193 k/mm3 (150-375); Red Blood Count 4.12 M/mm3 (4.2-5.4); Red Cell Distribution Width 14.2 % (11.5-14.5)
[2024-12-31 09:51] LABS: Alanine Aminotransferase 21 U/L (6-35); Albumin Level 3.8 g/dL (3.5-5.1); Alkaline Phosphatase 64 U/L (38-126); Anion Gap 9 mmol/L (4-12); Aspartate Amino Transferase 26 U/L (14-36); Bilirubin,Total 0.4 mg/dL (0.2-1.3); Blood Urea Nitrogen 13 mg/dL (7-17); Carbon Dioxide 25 mmol/L (22-30); Chloride 104 mmol/L (98-107); Estimated CRCL calculation 182 ml/min; Estimated Glomerular Filt Rate > 60; Glucose 115 mg/dL (65-110); Potassium 3.9 mmol/L (3.4-5.0); Sodium 138 mmol/L (137-145)
--- NOTE | 2024-12-31 17:07 | P.DS_ITS ---
DS: Admitting Diagnosis Discharge Date 12/25/2024 Admitting Diagnosis Atrial fibrillation DS: Discharge Diagnosis Discharge Diagnosis (1) Paroxysmal A-fib: Code(s): I48.0 - Paroxysmal atrial fibrillation Status: Acute (2) Atrial fibrillation with rapid ventricular response: Code(s): I48.91 - Unspecified atrial fibrillation Status: Acute (3) Prediabetes: Code(s): R73.03 - Prediabetes Status: Acute (4) Elevated TSH: Code(s): R79.89 - Other specified abnormal findings of blood chemistry Status: Acute DS: Summary Hospital Course Hospital Course: A pleasant 44-year-old female with a history of paroxysmal atrial fibrillation and obesity who presents with acute onset of palpitations and heavy chest pain midsternal. She had a few days of feeling off but 1.5 hour prior to admission on 12/29/2024 they worsened acutely. She presented to [facility]. In 2019 she was on a heart rate medication and Eliquis for atrial fibrillation however she took herself off of it because she did not like how they made her feel. She denies alcohol use, illicit drugs, tobacco abuse. Patient drinks about 3 very large coffee drinks per day. In the ER she was found to be in AFib with RVR heart rate in the 150s. Troponin negative. She was started on a Cardizem drip at 10 makes per hour and heart rate came down into the 100s. She was also given aspirin, metoprolol 5 mg IV x1, diltiazem 10 and 15 IV push, 1 L normal saline bolus. Zofran 4 mg IV x1. Patient reports afterwards she was feeling much better. I assumed care today(12/31/2024). Patient was admitted due to paroxysmal atrial fibrillation. As per patient she was diagnosed with the AFib 5 years ago and was given beta-jc and anticoagulation which she took it for a week but discontinued later. Currently patient reports that lately she has some stress in her life and with at least 3 cups of coffee in a day could have triggered her AFib. Her Vitaliy Vasc score currently is 1 due to female sex. Patient underwent stress test and the results are pending. Advised to follow up with Cardiology for the results. Patient will be discharged with metoprolol 25 mg p.o. q.d.. Advised to follow-up with the safety lamp keeper for weight loss. ECHO:1. The left ventricle is normal in size and systolic function. There is concentric left ventricular remodeling. The left ventricular ejection fraction is visually estimated to be 60-65%. 2. The right ventricle is normal in size and systolic function. Status at Discharge Cognitive/behavioral status at discharge: Stable Time Spent with Patient Time attestation: Total time spent providing and/or coordinating discharge services: 45 minute Exam Narrative: GENERAL: Well appearing, morbidly obese with BMI of 63.5, non-toxic, in no acute distress. HEAD: Normocephalic, atraumatic. RESPIRATORY: Airway patent, respirations nonlabored. Clear to auscultation bilaterally, no rales, rhonchi, wheezing. CARDIOVASCULAR: Tachycardic with irregular rhythm without murmurs, rubs, or gallops. Peripheral pulses intact. MUSCULOSKELETAL: Moves all extremities. No gross deformities. No peripheral edema. No calf tenderness. SKIN: Warm, dry, normal color. NEURO: A&O X3. Speech clear. Cranial nerves II-XII grossly intact. Steady gait. No ataxic movements. PSYCHIATRIC: Appropriate mood and affect. Normal interaction. Const: General: comfortable and no acute distress HENMT: Mouth: Yes moist mucous membranes Eyes: Pupils: Equal, round and reactive pupils present EOM: EOMs intact bilaterally Neck: Neck: supple and no JVD Resp: Effort & Inspection: normal respiratory effort Auscultation: clear to auscultation bilaterally Cardio: Rate: regular rate and tachycardic Rhythm: regular rhythm and abnormal rhythm Heart sounds: no gallops, no murmurs and no rubs Neuro: Cranial nerves: Yes Equal, round and reactive pupils present Speech: normal speech Extrem: General: no edema DS: Data Data Completed and Pending Labs on day of discharge: Labs from last 24 hours 12/31/24 09:09 WBC 7.0 RBC 4.12 L Hgb 11.1 L Hct 35.8 L MCV 86.9 MCH 26.9 MCHC 31.0 L RDW 14.2 Plt Count 193 MPV 12.0 H Sodium 138 Potassium 3.9 Chloride 104 Carbon Dioxide 25 Anion Gap 9 BUN 13 Creatinine 0.59 L Estim Creat Clear Calc 182 Estimated GFR > 60 Glucose 115 H Calcium 9.0 Total Bilirubin 0.4 AST 26 ALT 21 Alkaline Phosphatase 64 Total Protein 7.0 Albumin 3.8 Imaging Radiologist's impression: ITS Impressions Chest X-Ray 12/29/24 09:05 IMPRESSION: 1. No acute cardiopulmonary disease. Lexiscan Stress Test 12/30/24 15:43 IMPRESSION: 1. Normal myocardial perfusion at rest and during stress. 2. Left ventricular ejection fraction measuring >70%. Discharge Plan Discharge Attending physician on discharge: Eb Alvarenga Consulting providers: Henry Perea Discharging Clinician: Eb Alvarenga Anticipated Discharge Date/Time: 12/31/24 17:03 Patient Disposition: Home, Self-Care Activity: as tolerated Diet: heart healthy Discharge Instructions: Please follow-up with Cardiology for nuclear stress test results. Needs to follow-up with obesity clinic/Endocrinology for weight loss. Avoid caffeine, alcohol and stress. Patient Instructions: Antibiotic Form, Apixaban (By mouth), A-fib (Atrial Fibrillation) (DC), Pain Management (DC) Patient Language: Colombian Stand Alone Forms: General Discharge Information Follow-up/Referrals: Henry Perea MD [Physician] - (Patient needs to follow up with Cardiology for nuclear stress test results.) Crow,Octavia Montano [Primary Care Provider] - Discharge Medications: New metoprolol succinate [Toprol XL] 25 mg Tablet Extended Release 24 Hr 25 mg PO QAM Qty: 30 0RF No Action No Home Medications Date of admission: 12/29/24 02:06 Primary Care Provider: Charmaine Landin Admitting Provider: Yulisa Forde Attending physician on admission: Yulisa Forde Condition: Stable
== END 2024-12-31 19:15 | disposition home or self-care (01) ==
LOC: ANHED 12-29 02:17 → ANHIMU 12-29 02:49 → ANH2MED 12-30 07:37 → ANHIMU 01-01 07:23
PROVIDERS: Internal Medicine; Student in an Organized Health Care Education/Training Program; Admitting Provider General Practice; Emergency Provider Physician Assistant; PCP Internal Medicine Infectious Disease; Visit Provider General Practice
DX: I48.0 Paroxysmal atrial fibrillation (principal); R73.03 Prediabetes; R79.89 Other specified abnormal findings of blood chemistry; E66.01 Morbid (severe) obesity due to excess calories; Z68.44 Body mass index [BMI] 60.0-69.9, adult; Z20.822 Contact with and (suspected) exposure to COVID-19
CPT/HCPCS: 36415; 71045; 78452; 80053; 83036; 83690; 83735; 83880; 84439; 84443; 84484; 85025; 85027; 85380; 85610; 85730; 87637; 93005; 93017; 96361; 96374; 96375; 96376; 99285; A9270; A9502; C8929; G0378; J2405; J2785; J7030; Q9957

== ENCOUNTER 2025-08-04 09:17 | Emergency (ER) | payer OTHER, SELFPAY ==
--- NOTE | 2025-08-04 09:18 | ED.URI ---
HPI - URI/Sore Throat General Chief Complaint: Upper Respiratory Infection Stated Complaint: sore throat/congestion/head ache Time Seen by Provider: 08/04/25 09:18 Source: patient Mode of arrival: ambulatory Limitations: no limitations History of Present Illness HPI Narrative: Tish is a 45-year-old female patient presenting to the clinic today with complaints of sore throat, nasal congestion, body aches, and headache x2 days. She reports headaches 7/10 and body aches are 3/10. Denies any chest pain. Does have occasional shortness of breath but she thinks that is due to her weight and nasal congestion. Last menstrual period was 2 and half weeks ago. No concern for . Has not taken any medications to treat her symptoms. MD elicited complaint: sore throat and nasal congestion Related Data Allergies Allergy/AdvReac Type Severity Reaction Status Date / Time No Known Drug Allergies Allergy Mild Unknown Verified 08/04/25 09:43 Review of Systems Review of Systems: Pertinent positives per HPI. Patient denies any fever, chills, rash, visual changes, dizziness, shortness of breath, chest pain, palpitations, nausea, vomiting, diarrhea, constipation, abdominal pain, or any urinary issues. [facility] Past Medical History Medical History Paroxysmal A-fib Right calf pain No pertinent past medical history Surgical History Surgical History H/O left knee surgery Family History Family History Mother Breast cancer Grandparent Cerebrovascular accident Congestive heart failure Acute myocardial infarction Social History Social History Smoking status: Never smoker Alcohol intake: never Substance use: never Do You Feel Safe in your Home?: Yes Lack of Transportation: No Lack of Food: Never True Current Housing: I Have Housing Concerned About Future Housing: No Difficulty Paying Gas/Electric Bills: No Difficulty Paying for Meds: No Currently Unemployed: No Education: High School Diploma/GED Difficulty w/ Childcare or Family Care: No Gender identity (if verbalized by the patient): Female Spiritual care concerns: No Comments At the time of my signature, I reviewed and agree with the nursing past medical, surgical, social, and family history. There is no relevant family history pertinent to the patient complaint. Exam Narrative: General: Well-developed, morbidly obese, in no apparent distress Head: Normocephalic, atraumatic Eyes: Pupils equally round and reactive to light bilaterally, EOM intact, sclera and conjunctive clear, no discharge, lids normal Ears: TMs intact and clear, ear canals clear, no drainage, grossly hearing normal. Nose: Nares patent, clear nasal discharge, mild inflammation, no sinus tenderness. Mouth: Oral pharynx red without lesions or masses, good dentition, MMM. Postnasal drip Neck: Supple, trachea midline, no enlargement of anterior or posterior cervical nodes, no thyroid masses or goiter palpable. Cardio: Regular rate and rhythm, s1 and s2 normal, no murmur appreciated. Resp: Clear to auscultation bilaterally, no rhonchi, rales, wheezing or rubs Course Course Emergency Course: Portions of this record may have been created with voice recognition software. Level of Care: Express Care Visit Vital Signs Vital signs: Vital signs reviewed MDM - URI/Sore Throat MDM Narrative Medical decision making narrative: At the time of visit patient is resting comfortably on the exam table. Patient appears to be nontoxic. Complaints of sore throat, nasal congestion, body aches, and headache x2 days. She reports headaches 7/10 and body aches are 3/10. Denies any chest pain. Does have occasional shortness of breath but she thinks that is due to her weight and nasal congestion. Last menstrual period was 2 and half weeks ago. No concern for . Has not taken any medications to treat her symptoms. On exam patient has clear nasal congestion, tympanic membranes intact and clear, postnasal drip with mild red oropharynx, and lung sounds are clear. Vital signs are reviewed and stable. COVID, flu, and strep test were ordered. Labs: COVID, flu, and strep test were all completed and negative in the clinic today. We will send strep for culture. Plan: I suspect patient has URI/pharyngitis/viral syndrome. Work note was given. Supportive measures were discussed with the patient and they voiced understanding discharge instructions and agrees to treatment plan. Return precautions reviewed Differential Diagnosis Differential diagnosis: Likely upper respiratory infection, otitis media, sinusitis, viral infection, bronchitis, influenza, pharyngitis and other (COVID) Discharge Plan Discharge Clinical Impression: Viral infection Upper respiratory infection Qualifiers: URI type: unspecified URI Qualified Code(s): J06.9 - Acute upper respiratory infection, unspecified Pharyngitis Qualifiers: Pharyngitis/tonsillitis etiology: unspecified etiology Qualified Code(s): J02.9 - Acute pharyngitis, unspecified Patient Disposition: Home Condition: Stable Instructions: Antibiotic Form, Pharyngitis (ED), Viral Syndrome (ED), Cold Symptoms (ED) Additional Instructions: COVID, flu, and strep testing were all negative in the clinic today. We will send strep for culture if this comes back positive we will contact you and place you on antibiotics at that time. May take Coricidin HBP for cold/flu symptoms Increase fluids and stay well hydrated May take Tylenol or motrin as directed on bottle for pain/fever May use Flonase 1 spray in each nare daily May take OTC antihistamines such as Zyrtec or Claritin daily as directed on bottle May apply Vicks vapor rub to chest to open sinuses Sinus rinses for congestion Cepacol spray, cough drops, throat lozenges, warm tea with honey/lemon, gargle salt water to soothe throat BRAT diet for diarrhea Clear liquids x 24 hours then advance as tolerated for nausea/vomiting Go to the ED if you develop a worsening in your condition- high fever not controlled by Tylenol or Motrin, dehydration, weakness, lethargy, shortness of breath, or chest pain. Follow up with your PCP in 3-5 days if symptoms persist. Patient Language: Estonian Prescriptions: No Action metoprolol succinate [Toprol XL] 25 mg Tablet Extended Release 24 Hr 25 mg PO QAM Qty: 30 0RF Follow-up/Referrals: UNKNOWN,DOCTOR [Non-Staff] Stand Alone Forms: Work/School Release IP Time of Disposition: 09:50 Quality NIHSS Nursing Documentation ED NIHSS nursing documentation: reviewed/agree
[2025-08-04 09:20] VITALS: BP 132/62; PULSE 83; RESP 18; TEMP 36.2; O2SAT 99
[2025-08-04 10:10] LABS: EDCOVIDSCREEN Negative (Negative); EDINFLUASCREEN Negative (Negative); EDINFLUBSCREEN Negative (Negative); EDSTREPNEGPOS1 Negative (Negative)
== END 2025-08-04 09:57 | disposition home or self-care (01) ==
PROVIDERS: Emergency Provider Nurse Practitioner Family; PCP Family Medicine
DX: B34.9 Viral infection, unspecified (principal); J06.9 Acute upper respiratory infection, unspecified; J02.9 Acute pharyngitis, unspecified; I48.0 Paroxysmal atrial fibrillation; Z20.822 Contact with and (suspected) exposure to COVID-19
CPT/HCPCS: 87081; 87426; 87804; 87880; 99213; G0463